=== PATIENT | male | born 1935 | race Caucasian/White ===

== ENCOUNTER → 2019-07-29 | Outpatient (CLI) | payer MEDICARE, BC ==
--- NOTE | 2019-07-29 16:19 | CT ---
EXAMINATION TYPE: CT abdomen pelvis w con DATE OF EXAM: 07/29/2019 COMPARISON: NONE HISTORY: 84-year-old male Hematuria x1 month. TECHNIQUE: Contiguous axial scanning of the abdomen and pelvis following administration of 80 ml Isov ue 300 IV contrast. Dose was decreased given apparent acute kidney injury. Patient still remains at [facility] for worsening kidney function and should be reevaluated. Delayed images through the kidneys and c oronal/sagittal reconstructions performed. CT DLP: 962.90 mGycm Automated exposure control for dose reduction was used. FINDINGS: Heart normal size without pericardial effusion. Ectatic ascending aorta 3.7 cm. Three-vessel coronary artery calcifications are present. Moderate bilateral gynecomastia. Lung bases clear with some stran dy atelectasis. Liver enlarged at 20.9 cm with low attenuation. No focal liver lesion. Portal venous system is patent . No biliary ductal dilatation. Gallbladder, adrenal glands and spleen within normal limits. 2.0 x 1.9 cm cystic lesion of the inferior pancreatic head, refer to axial image 42 and coronal image 39. No nephrolithiasis. Symmetric uptake and excretion of contrast from both kidneys. A couple small cortical hypodensities within the right kidney measure 1.1 and 0.6 cm. These are too s mall for accurate CT characterization and likely represent small cortical cysts. There is a large wedge-shaped cortical defect along the upper to mid pole of the left kidney and also a smaller defect along the lower pole of the left kidney. At the level of the larger upper to mid pole defect, there is a complex, septated versus 2 adjacent c ysts measuring 3.8 cm wide by 2.6 cm AP by 2.5 cm craniocaudal, refer to axial image 36 and coronal i mage 59 and 58. Along the lateral lower pole, there is a 1.2 cm cortical hypodensity, too small for accurate CT tere cterization, probable cyst. These should be reassessed at follow-up. [id number] atherosclerotic calcifications abdominal aorta and iliac arteries. No dilated small bowel, free fluid, or free air. No mesenteric or retroperitoneal lymphadenopathy. Normal appendix. Scattered colonic diverticulosis. Mild stool. Circumferential bladder wall thickening with mild perivesicular fat stranding. Heterogeneous enhancement of the prostate gland which measures approximately 3.8 cm wide. No abnormal fluid collection in the pelvis or pelvic lymphadenopathy seen. Bones: Degenerative changes of the hips. Hypertrophic facet arthropathy with grade 1 retrolisthesis a t L3-L4. Advanced degenerative disc disease L3-L4 and moderate at additional levels. IMPRESSION: 1. HETEROGENEOUS ENHANCEMENT OF THE PROSTATE GLAND. CLINICALLY CORRELATE TO EXCLUDE UNDERLYING PROSTA TITIS OR PROSTATE CANCER. 2. CIRCUMFERENTIAL BLADDER WALL THICKENING AND PERIVESICULAR FAT STRANDING SUGGESTS CONCURRENT CYSTIT IS. 3. LARGE CORTICAL DEFECT ALONG THE UPPER TO MID POLE OF THE LEFT KIDNEY COULD REFLECT SEQUELA OF PRIO R VASCULAR OR INFECTIOUS INSULT. THERE IS A MILDLY COMPLEX, SEPTATED CYST VERSUS 2 ADJACENT CYSTS JOSE SURING 3.8 CM INTERPOSED IN THIS DEFECT. SIX-MONTH FOLLOW-UP RECOMMENDED TO REASSESS. 4. ADDITIONAL BILATERAL RENAL LESIONS, TOO SMALL FOR ACCURATE CT CHARACTERIZATION, LIKELY CORTICAL CY STS MEASURING UP TO 1.2 CM. 5. INCIDENTAL 2.0 CM INFERIOR PANCREATIC HEAD CYSTIC LESION. DIFFERENTIAL CONSIDERATIONS INCLUDE SEQU TL OF PRIOR PANCREATITIS AND CYSTIC PANCREATIC NEOPLASM. THIS SHOULD ALSO BE REASSESSED AT THE FOLLO W-UP. CONSIDER MULTIPHASIC ABDOMINAL MRI AT THE TIME OF FOLLOW-UP TO BETTER CHARACTERIZE THIS PANCREA TIC LESION WELL THE RENAL LESIONS. 6. NOTE THAT A DECREASED DOSE OF IV CONTRAST WAS ADMINISTERED IN THE SETTING OF RECOVERING ACUTE KIDN EY INJURY. RECOMMEND MONITORING THE PATIENT FOR ANY POTENTIAL WORSENING KIDNEY FUNCTION.
== END | disposition home or self-care (01) ==
LOC: RADCTMAIN 13:10
PROVIDERS: ATTEND Urology
DX: N17.9 Acute kidney failure, unspecified (principal); N32.89 Other specified disorders of bladder; N28.89 Other specified disorders of kidney and ureter
CPT/HCPCS: 82565; 84520; 74177; 36415; Q9967

== ENCOUNTER → 2019-08-02 | Outpatient (CLI) | payer MEDICARE, BC ==
[2019-08-02 20:03] LABS: African American GFR (CKD) 48.2 (60.0-200.0); Non-African American GFR(CKD) 41.6 (60.0-200.0)
== END ==
LOC: LABWHC1 14:15
PROVIDERS: ATTEND Urology
DX: N18.3 Chronic kidney disease, stage 3 (moderate) (principal)
CPT/HCPCS: 36415; 82565; 84520

== ENCOUNTER → 2020-07-03 | Outpatient (CLI) | payer MEDICARE, BC ==
--- NOTE | 2020-07-03 12:56 | MR ---
MR pancreas with and without contrast HISTORY: K [address], pancreatic mass Multiplanar multisequence and postcontrast images obtained through the pancreas following [address] IV Correlation to CT scan 07/29/2019 There is motion on the exam. Exam is somewhat limited by patient's ability to cooperate. The uncinate process of the pancreas shows a T1 low signal, T2 bright lesion measuring approximately 19 mm in transverse dimension by 2.2 cm in cephalad to caudal dimension by 1.7 cm as on prior exam. T here is no abnormal enhancement following contrast administration. Multiple T1 low signal, T2 bright foci within the kidneys are present correlating with cystic lesion seen on CT, there is some cortical thinning at the lower pole the left kidney as on CT. There is no e vident retroperitoneal adenopathy or ascites. Lung bases are clear. Aorta shows normal caliber. Adren al glands, spleen, gallbladder are within normal limits. Signal drop in the liver is consistent with attic steatosis as noted on CT, liver is enlarged. Degenerative disc changes are noted in the visualized spine. IMPRESSION: Cystic foci within the kidneys and pancreas are essentially stable within the limitations of the exam. Hepatic steatosis, hepatomegaly
== END | disposition home or self-care (01) ==
LOC: RADMRIMAIN 07:21
PROVIDERS: ATTEND Urology
DX: K76.0 Fatty (change of) liver, not elsewhere classified (principal); R16.0 Hepatomegaly, not elsewhere classified; K86.2 Cyst of pancreas
CPT/HCPCS: 74183; A9585

== ENCOUNTER 2021-04-25 13:30 | Inpatient (IN) | payer MEDICARE, BC ==
[2021-04-25 14:40] LABS: Bacteria,Urine Rare /hpf; RBC,Urine 156 /hpf (0-5); WBC,Urine >182 /hpf (0-5)
[2021-04-25] MEDS ORDERED: SODIUM CHLORIDE 0.9% 1,000 ML IV STA (14:40)
[2021-04-25 14:48] LABS: Color,Urine Colorless
--- NOTE | 2021-04-25 14:49 | ED ---
General Adult HPI - General Chief complaint: Weakness Stated complaint: low blood pressure Time Seen by Provider: 04/25/21 13:45 Source: patient, RN notes reviewed, old records reviewed Mode of arrival: ambulatory Limitations: no limitations - History of Present Illness Initial comments: This is an 86-year-old male presents emergency Department because he has become more more weak. Patient states since the beginning of March is lost 18 pounds because he is lost his appetite. Patient states he has chronic diarrhea change. patient states that he does have some burning with urination any daughter states that he has urinary frequency. Patient tried see primary medical care doctor today but they were not in. Patient states the weakness is general there is no focal deficit noted no focal numbness noted patient denies chest pain difficulty breathing shortest breath per patient any recent fever chills or cough. Patient denies any headache patient denies any recent injuries or falls. Patient denies any abdominal pain. Patient's blood pressure was low when he visited the doctor yesterday and he took him off his blood pressure medications started today and the patient continues to be very weak. - Related Data Allergies Allergy/AdvReac Type Severity Reaction Status Date / Time No Known Allergies Allergy Verified 04/25/21 13:50 Review of Systems ROS Statement: Those systems with pertinent positive or pertinent negative responses have been documented in the HPI. ROS Other: All systems not noted in ROS Statement are negative. Past Medical History Past Medical History: Cancer, Diabetes Mellitus, Hyperlipidemia, Hypertension, Osteoarthritis (OA) Additional Past Medical History / Comment(s): prostate CA, History of Any Multi-Drug Resistant Organisms: None Reported Additional Past Surgical History / Comment(s): lamenectomy Past Psychological History: Depression Smoking Status: Never smoker Past Alcohol Use History: None Reported Past Drug Use History: None Reported General Exam - General Exam Comments Initial Comments: GENERAL: Patient is well-developed and well-nourished. Patient is nontoxic and well- hydrated and is in no acute distress. ENT: Neck is soft and supple. No significant lymphadenopathy is noted. Oropharynx is clear. Moist mucous membranes. Neck has full range of motion without eliciting any pain. EYES: The sclera were anicteric and conjunctiva were pink and moist. Extraocular movements were intact and pupils were equal round and reactive to light. Eyelids were unremarkable. PULMONARY: Unlabored respirations. Good breath sounds bilaterally. CARDIOVASCULAR: There is a regular rate and rhythm without any murmurs gallops or rubs. ABDOMEN: Soft and nontender with normal bowel sounds. SKIN: Skin is clear with no lesions or rashes and otherwise unremarkable. NEUROLOGIC: Patient is alert and oriented x3. Cranial nerves II through XII are grossly intact. Motor and sensory are also intact. Normal speech, volume and content. Symmetrical smile. Cerebellar exam grossly intact. MUSCULOSKELETAL: Normal extremities with adequate strength and full range of motion. No lower extremity swelling or edema. No calf tenderness. LYMPHATICS: No significant lymphadenopathy is noted PSYCHIATRIC: Normal psychiatric evaluation. 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 I started the patient on Rocephin for the urinary tract infection which was diagnosed at 4:00 PM. Patient was orthostatic positive gave the patient a liter and a half of fluid. I spoke with sounds physician they agreed to admit the patient I admitted the patient wrote admitting orders - Lab Data Result diagrams: 04/25/21 14:48 04/25/21 14:48 Lab Results 04/25/21 04/25/21 04/25/21 Range/Units 13:52 14:48 14:48 WBC 10.4 (3.8-10.6) k/uL RBC 3.76 L (4.30-5.90) m/uL Hgb 11.5 L (13.0-17.5) gm/dL Hct 35.0 L (39.0-53.0) % MCV 93.3 (80.0-100.0) fL MCH 30.5 (25.0-35.0) pg MCHC 32.7 (31.0-37.0) g/dL RDW 15.7 H (11.5-15.5) % Plt Count 497 H (150-450) k/uL MPV 7.0 Neutrophils % 74 % Lymphocytes % 16 % Monocytes % 7 % Eosinophils % 1 % Basophils % 1 % Neutrophils # 7.7 (1.3-7.7) k/uL Lymphocytes # 1.7 (1.0-4.8) k/uL Monocytes # 0.7 (0-1.0) k/uL Eosinophils # 0.1 (0-0.7) k/uL Basophils # 0.1 (0-0.2) k/uL Hypochromasia Slight PT 10.2 (9.0-12.0) sec INR 1.0 (<1.2) APTT 23.1 (22.0-30.0) sec Sodium (137-145) mmol/L Potassium (3.5-5.1) mmol/L Chloride (98-107) mmol/L Carbon Dioxide (22-30) mmol/L Anion Gap mmol/L BUN (9-20) mg/dL Creatinine (0.66-1.25) mg/dL Est GFR (CKD-EPI)AfAm (>60 ml/min/1.73 sqM) Est GFR (CKD-EPI)NonAf (>60 ml/min/1.73 sqM) Glucose (74-99) mg/dL Plasma Lactic Acid Dada (0.7-2.0) mmol/L Calcium (8.4-10.2) mg/dL Magnesium (1.6-2.3) mg/dL Total Bilirubin (0.2-1.3) mg/dL AST (17-59) U/L ALT (4-49) U/L Alkaline Phosphatase (38-126) U/L Troponin I (0.000-0.034) ng/mL Total Protein (6.3-8.2) g/dL Albumin (3.5-5.0) g/dL Urine Color Colorless Urine Appearance Turbid (Clear) Urine RBC 156 H (0-5) /hpf Urine WBC >182 H (0-5) /hpf Urine WBC Clumps Many H (None) /hpf Urine Bacteria Rare H (None) /hpf 04/25/21 04/25/21 04/25/21 Range/Units 14:48 14:48 14:48 WBC (3.8-10.6) k/uL RBC (4.30-5.90) m/uL Hgb (13.0-17.5) gm/dL Hct (39.0-53.0) % MCV (80.0-100.0) fL MCH (25.0-35.0) pg MCHC (31.0-37.0) g/dL RDW (11.5-15.5) % Plt Count (150-450) k/uL MPV Neutrophils % % Lymphocytes % % Monocytes % % Eosinophils % % Basophils % % Neutrophils # (1.3-7.7) k/uL Lymphocytes # (1.0-4.8) k/uL Monocytes # (0-1.0) k/uL Eosinophils # (0-0.7) k/uL Basophils # (0-0.2) k/uL Hypochromasia PT (9.0-12.0) sec INR (<1.2) APTT (22.0-30.0) sec Sodium 133 L (137-145) mmol/L Potassium 5.0 (3.5-5.1) mmol/L Chloride 101 (98-107) mmol/L Carbon Dioxide 19 L (22-30) mmol/L Anion Gap 13 mmol/L BUN 45 H (9-20) mg/dL Creatinine 1.57 H (0.66-1.25) mg/dL Est GFR (CKD-EPI)AfAm 45 (>60 ml/min/1.73 sqM) Est GFR (CKD-EPI)NonAf 39 (>60 ml/min/1.73 sqM) Glucose 164 H (74-99) mg/dL Plasma Lactic Acid Dada 2.6 H* (0.7-2.0) mmol/L Calcium 9.6 (8.4-10.2) mg/dL Magnesium 1.6 (1.6-2.3) mg/dL Total Bilirubin 0.2 (0.2-1.3) mg/dL AST 16 L (17-59) U/L ALT 9 (4-49) U/L Alkaline Phosphatase 74 (38-126) U/L Troponin I <0.012 (0.000-0.034) ng/mL Total Protein 6.8 (6.3-8.2) g/dL Albumin 3.8 (3.5-5.0) g/dL Urine Color Urine Appearance (Clear) Urine RBC (0-5) /hpf Urine WBC (0-5) /hpf Urine WBC Clumps (None) /hpf Urine Bacteria (None) /hpf Disposition Clinical Impression: Orthostatic hypotension, Generalized weakness, Urinary tract infection Disposition: ADMITTED IP TO THIS HOSP Referrals: Ciro Deshpande MD [Primary Care Provider] - 1-2 days Time of Disposition: 16:03
[2021-04-25 14:50] LABS: Appearance,Urine Turbid (Clear)
[2021-04-25] MEDS ORDERED: SODIUM CHLORIDE 0.9% 500 ML 500 ML IV STA (15:05)
[2021-04-25 15:25] LABS: Basophils # (A) 0.1 k/uL (0-0.2); Basophils % (A) 1 %; Eosinophils # (A) 0.1 k/uL (0-0.7); Eosinophils % (A) 1 %; HGB 11.5 gm/dL (13.0-17.5); Hypochromasia Slight; Lymphocytes # (A) 1.7 k/uL (1.0-4.8); Lymphocytes % (A) 16 %; MCH 30.5 pg (25.0-35.0); MCHC 32.7 g/dL (31.0-37.0); MCV 93.3 fL (80.0-100.0); Monocytes # (A) 0.7 k/uL (0-1.0); Monocytes % (A) 7 %; Neutrophils # (A) 7.7 k/uL (1.3-7.7); Neutrophils % (A) 74 %; Platelet Count 497 k/uL (150-450); RBC 3.76 m/uL (4.30-5.90); RDW 15.7 % (11.5-15.5); WBC 10.4 k/uL (3.8-10.6)
--- NOTE | 2021-04-25 15:30 | XR ---
EXAMINATION TYPE: XR chest 2V DATE OF EXAM: 04/25/2021 COMPARISON: Outside chest x-ray April 29, 2017 HISTORY: Hypotension and weakness. TECHNIQUE: Frontal and lateral views of the chest are obtained. FINDINGS: There is small right pleural effusion redemonstrated. No new focal infiltrate. Left lung is clear. The cardiac silhouette size is within normal limits. Multilevel spurring in the spine. IMPRESSION: Stable small right pleural effusion. No new focal infiltrate.
[2021-04-25 15:34] LABS: Albumin 3.8 g/dL (3.5-5.0); Calcium 9.6 mg/dL (8.4-10.2); Magnesium 1.6 mg/dL (1.6-2.3); Total Bilirubin 0.2 mg/dL (0.2-1.3); Total Protein 6.8 g/dL (6.3-8.2)
[2021-04-25 15:37] LABS: Partial Thromboplastin Time 23.1 sec (22.0-30.0); Prothrombin Time 10.2 sec (9.0-12.0)
[2021-04-25] MEDS ORDERED: SODIUM CHLORIDE 0.9% 1,000 ML IV ONE (16:03)
--- NOTE | 2021-04-25 17:09 | P.HPIM ---
<Erik Del Angel - Last Filed: 04/25/21 18:16> History of Present Illness H&P Date: 04/25/21 History of Presenting Illness: Patient is a very pleasant 86-year-old male with a past medical history of prostate cancer, diabetes mellitus, hypertension, hyperlipidemia, and osteoarthritis. He presented to the emergency department with a chief complaint of progressive weakness with reports of loss of appetite, 18 pound weight loss, urinary frequency and dysuria. Patient reports these symptoms began one month ago and have progressively worsened. Patient was seen and fully evaluated in the emergency department. CBC was completed showing no significant abnormalities with the exception of mild normocytic normochromic anemia with hemoglobin of 11.5 and thrombocytosis with platelet count of 497. BMP revealed mild hyponatremia with sodium of 133 and acute kidney injury with BUN of 45, creatinine 1.57, and GFR of 39 1.57 with baseline creatinine of 1.3. Hyperglycemia with glucose of 164, and lactic acidosis with lactate of 2.6. Troponin negative at less than 0.012. Urinalysis positive for infection with greater than 182 WBCs. Chest x-ray negative for acute cardiopulmonary process revealing a stable small right pleural effusion EKG revealing normal sinus rhythm at 76 bpm with a left bundle branch block. No previous EKGs available for comparison. Patient diagnosed with UTI and started on IV antibiotic, Rocephin. Patient admitted under our services at this time. Patient seen and physical examination completed at the bedside. He reports feeling very weak and lethargic. He also reports having chronic diarrhea, but states this has been chronic in nature since receiving radiation from his prostate cancer greater than 15 years ago. Patient denies having any increases in or changes in stool consistency or frequency. He denies having any hematuria, hematochezia, or melena. Patient and his family at bedside reports patient has pretty much been lying around and sleeping on the couch for the past 3 weeks. They report him having an 18 pound weight loss that they contribute to his significantly decreased appetite. Patient also reports having chronic back pains lower back done at bedside reports this is why he feels his father is not getting out of bed. Patient denies having any recent fevers, chills, diaphoresis, headache, lightheadedness, dizziness, chest pain, palpitations, shortness of breath, dyspnea with exertion, abdominal pain, nausea, vomiting, or experiencing any pain/numbness/tingling/weakness in his extremities. She reports history of prostate cancer greater than 14 years ago in which she was treated with radiation and went into remission. Patient also reports having a MRI on his pancreas and renal cysts 1 year ago and was informed there were no changes from previous year. Review of systems: Pertinent positives and negatives as discussed in HPI, a complete review of systems was performed and all other systems are negative. Physical exam: Vital signs reviewed and stable. General: Nontoxic, no distress and appears stated age. Derm: Skin warm and dry, pale. Head: Atraumatic, normocephalic and symmetric. Eyes: no lid lag, and anicteric sclera Mouth: no lip lesions, mucus membranes moist Cardiovascular: regular rate and rhythm with normal S1S2, no murmur, positive posterior tibial pulses bilaterally, and cap refill < 2 seconds. Lungs: Respirations even, regular, and unlabored on room air. Lungs CTA bilaterally, no rhonchi, no rales, no wheezing, and no accessory muscle usage. Abdominal: soft, nontender to palpation, no guarding, no appreciable organomegaly Ext: ROM intact. No gross muscle atrophy, no edema, no contractures Neuro: Speech clear, face symmetrical and CN II-XII grossly intact with no noted focal neuro deficits Psych: Alert and oriented to person, place, time, and situation. Appropriate and pleasant affect. Assessment and Plan of Care: Acute cystitis with urinary frequency and dysuria -Urinalysis positive for infection with greater than 182 WBCs. -Urine culture -IV antibiotic Rocephin pending urine culture results -Gentle hydration with IV fluids -Bladder management with PRN bladder scans to monitor for urinary retention Generalized weakness, lethargy, decreased appetite and weight loss -Treatment of underlying infectious process, UTI with Rocephin -Gentle hydration with IV fluids -Consult to nutrition services -PT/OT -CT thoracic and lumbar spine to rule out possible metastatic process is reported by patient's back pain and history of prostate cancer -Symptomatic care and assistance as needed -Fall precautions Back pain with history of lumbar fusion -Symptomatic care and pain management -PT/OT consult -CT thoracic and lumbar spine -Fall precautions [id number]-jnyswtegz diabetes mellitus -Hold Glucophage in place patient on glycemic protocol with NovoLog sliding scal e. Hyperlipidemia -Continue daily medication regimen with atorvastatin The patient is admitted with an anticipated greater than 2 midnight stay for evaluation of acute cystitis and generalized lethargy/weakness. CODE STATUS: Full code per patient, daughter and son at bedside DVT prophylaxis: Heparin Discussed with: Patient, patient's daughter, and patient's son Anticipated discharge date: Clinical course to determine Anticipated discharge place: Home A total of 45 minutes was spent on the care of this complex patient more than 50% of the time was spent in counseling and care coordination. Past Medical History Past Medical History: Cancer, Diabetes Mellitus, Hyperlipidemia, Hypertension, O steoarthritis (OA) Additional Past Medical History / Comment(s): prostate CA, History of Any Multi-Drug Resistant Organisms: None Reported Additional Past Surgical History / Comment(s): lamenectomy Past Psychological History: Depression Smoking Status: Never smoker Past Alcohol Use History: None Reported Past Drug Use History: None Reported Medications and Allergies Home Medications Medication Instructions Recorded Confirmed Type Acetaminophen Tab [Tylenol] 650 mg PO Q4H PRN 04/25/21 04/25/21 History Albuterol Inhaler [Ventolin Hfa 2 puff INHALATION RT-QID PRN 04/25/21 04/25/21 History Inhaler] Atorvastatin [Lipitor] 20 mg PO DAILY 04/25/21 04/25/21 History Cholecalciferol [Vitamin D3 (25 50 mcg PO DAILY 04/25/21 04/25/21 History Mcg = 1000 Iu)] FLUoxetine HCL [PROzac] 20 mg PO DAILY 04/25/21 04/25/21 History Loratadine 10 mg PO DAILY 04/25/21 04/25/21 History metFORMIN HCL [Glucophage] 500 mg PO BID 04/25/21 04/25/21 History Allergies Allergy/AdvReac Type Severity Reaction Status Date / Time No Known Allergies Allergy Verified 04/25/21 17:56 Physical Exam Vitals: Vital Signs Temp Pulse Pulse Pulse Pulse Resp BP 04/25/21 16:00 72 20 120/66 04/25/21 15:00 76 20 101/56 04/25/21 14:50 93 101 H 79 04/25/21 13:45 98.4 F 93 18 100/65 BP BP BP Pulse Ox 04/25/21 16:00 99 04/25/21 15:00 97 04/25/21 14:50 81/56 70/39 114/67 04/25/21 13:45 99 Intake and Output 08/18/21 08/18/21 08/18/21 06:59 14:59 22:59 Other: Weight 62.596 kg Results CBC & Chem 7: 04/25/21 14:48 04/25/21 14:48 Labs: Abnormal Lab Results - Last 24 Hours (Table) 04/25/21 04/25/21 04/25/21 Range/Units 13:52 14:48 14:48 RBC 3.76 L (4.30-5.90) m/uL Hgb 11.5 L (13.0-17.5) gm/dL Hct 35.0 L (39.0-53.0) % RDW 15.7 H (11.5-15.5) % Plt Count 497 H (150-450) k/uL Sodium 133 L (137-145) mmol/L Carbon Dioxide 19 L (22-30) mmol/L BUN 45 H (9-20) mg/dL Creatinine 1.57 H (0.66-1.25) mg/dL Glucose 164 H (74-99) mg/dL Plasma Lactic Acid Dada (0.7-2.0) mmol/L AST 16 L (17-59) U/L Urine RBC 156 H (0-5) /hpf Urine WBC >182 H (0-5) /hpf Urine WBC Clumps Many H (None) /hpf Urine Bacteria Rare H (None) /hpf 04/25/21 Range/Units 14:48 RBC (4.30-5.90) m/uL Hgb (13.0-17.5) gm/dL Hct (39.0-53.0) % RDW (11.5-15.5) % Plt Count (150-450) k/uL Sodium (137-145) mmol/L Carbon Dioxide (22-30) mmol/L BUN (9-20) mg/dL Creatinine (0.66-1.25) mg/dL Glucose (74-99) mg/dL Plasma Lactic Acid Dada 2.6 H* (0.7-2.0) mmol/L AST (17-59) U/L Urine RBC (0-5) /hpf Urine WBC (0-5) /hpf Urine WBC Clumps (None) /hpf Urine Bacteria (None) /hpf <Elvira Mcdaniels A - Last Filed: 04/25/21 20:21> History of Present Illness Patient seen and examined independently. Patient was also seen by Erik Del Angel NP and case was discussed. I am in agreement with subjective, physical exam, assessment and plan as written above and amended below. Patient is unsure of his back pain has been increasing but it is lower in over his sciatic and near his prostate area. He states he is having some difficulty with urination and just feeling weak all over. Pain is somewhat worse with movement. He has not had any recent imaging. He does not want to undergo MRIs he had issues with claustrophobia and then confusion from the Ativan when he completed his pancreatic MRI. General: [non toxic], [no distress], [appears at stated age] Derm: [warm], [dry] Head: [atraumatic], [normocephalic], [symmetric] Eyes: [EOMI], [no lid lag], [anicteric sclera] hard of hearing Mouth: [no lip lesion], [mucus membranes moist] Cardiovascular: [S1S2 reg], [no murmur], [positive posterior tibial pulse bilateral], Lungs: [Coarse breath sounds bilateral bilateral], [no rhonchi, no rales] , [no accessory muscle use] Spine: No tenderness to palpation over thoracic and lumbar spine, no erythema, no bulging, loss of lumbar lordosis. Psych: [Alert], [oriented], [appropriate affect] Physical Exam Osteopathic Statement: *. No significant issues noted on an osteopathic structural exam other than those noted in the History and Physical/Consult. Vitals: Vital Signs Temp Pulse Pulse Pulse Pulse Resp BP 04/25/21 20:04 98.0 F 73 20 101/52 04/25/21 16:00 72 20 120/66 04/25/21 15:00 76 20 101/56 04/25/21 14:50 93 101 H 79 04/25/21 13:45 98.4 F 93 18 100/65 BP BP BP Pulse Ox 04/25/21 20:04 100 04/25/21 16:00 99 04/25/21 15:00 97 04/25/21 14:50 81/56 70/39 114/67 04/25/21 13:45 99 Intake and Output 0804/25/21 04/25/21 06:59 14:59 22:59 Other: Weight 62.596 kg Results CBC & Chem 7: 04/25/21 14:48 04/25/21 14:48 Labs: Abnormal Lab Results - Last 24 Hours (Table) 04/25/21 04/25/21 04/25/21 Range/Units 13:52 14:48 14:48 RBC 3.76 L (4.30-5.90) m/uL Hgb 11.5 L (13.0-17.5) gm/dL Hct 35.0 L (39.0-53.0) % RDW 15.7 H (11.5-15.5) % Plt Count 497 H (150-450) k/uL Sodium 133 L (137-145) mmol/L Carbon Dioxide 19 L (22-30) mmol/L BUN 45 H (9-20) mg/dL Creatinine 1.57 H (0.66-1.25) mg/dL Glucose 164 H (74-99) mg/dL Plasma Lactic Acid Dada (0.7-2.0) mmol/L AST 16 L (17-59) U/L Urine RBC 156 H (0-5) /hpf Urine WBC >182 H (0-5) /hpf Urine WBC Clumps Many H (None) /hpf Urine Bacteria Rare H (None) /hpf 04/25/21 Range/Units 14:48 RBC (4.30-5.90) m/uL Hgb (13.0-17.5) gm/dL Hct (39.0-53.0) % RDW (11.5-15.5) % Plt Count (150-450) k/uL Sodium (137-145) mmol/L Carbon Dioxide (22-30) mmol/L BUN (9-20) mg/dL Creatinine (0.66-1.25) mg/dL Glucose (74-99) mg/dL Plasma Lactic Acid Dada 2.6 H* (0.7-2.0) mmol/L AST (17-59) U/L Urine RBC (0-5) /hpf Urine WBC (0-5) /hpf Urine WBC Clumps (None) /hpf Urine Bacteria (None) /hpf Microbiology - Last 24 Hours (Table) 04/25/21 13:52 Urine Culture - Preliminary Urine,Voided
[2021-04-25] MEDS ORDERED: ALBUTEROL NEBULIZED 2.5 MG/3 ML INHALATION PRN (18:09)
[2021-04-25] MEDS ORDERED: MELATONIN 3 MG TABLET PO PRN (18:13)
[2021-04-25] MEDS ORDERED: ACETAMINOPHEN TAB 325 MG TAB PO PRN (18:13)
[2021-04-25] MEDS ORDERED: NALOXONE 0.4 MG/ML 1 ML VIAL IV PRN (18:13)
--- NOTE | 2021-04-25 20:22 | CT ---
EXAMINATION TYPE: CT thor lumbar spine wo con DATE OF EXAM: 04/25/2021 COMPARISON: CT lumbar spine 07/29/2019 HISTORY: chronic back pain CT DLP: 932.2 mGycm Automated exposure control for dose reduction was used. Images obtained from the level of T1-S1 vertebra without contrast. Thoracic and lumbar vertebra have fairly normal alignment. There is degenerative disc space moderate narrowing at L3-4. There is vacuum disc at L4-5. There is multilevel hypertrophic degenerative spurri ng anteriorly throughout the lower thoracic spine and the entire lumbar spine. There is no compressio n fracture. There is no evidence of thoracic or lumbar paraspinal mass. The posterior elements are in tact. I see no focal bone destruction. The sacroiliac joints appear intact. There is narrowing of the spinal canal from L3 to S1 with moderate facet arthropathy and ligamentum f lavum thickening. There is some mild narrowing of the spinal canal also in the thoracic spine region at T8-9 due to ligamentum flavum thickening and calcification. 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 Lumbar spine appears stable compared to old exam. There is a few millimeter retrolisthesis at L3-4. There is moderately severe spinal stenosis from L3 to S1. This is related to facet arthropathy and li gamentum flavum thickening.
[2021-04-25 21:09] LABS: Glucose,Whole Blood 147 mg/dL (75-99)
[2021-04-25] MEDS: HEPARIN SODIUM,PORCINE/PF 5,000 UNIT/0.5 ML SYRINGE SQ SCH (21:50)
[2021-04-25] MEDS: INSULIN ASPART (NovoLOG) 100 UNIT/ML VIAL SQ SCH (21:50)
[2021-04-25] MEDS: HYDROcodone/APAP 5-325MG 1 EACH TAB PO PRN (21:51)
[2021-04-26] MEDS: SODIUM CHLORIDE 0.9% 1,000 ML IV SCH ×3 (01:38→14:23)
[2021-04-26] MEDS: HYDROcodone/APAP 5-325MG 1 EACH TAB PO PRN ×3 (06:20→18:22)
[2021-04-26 06:41] LABS: Glucose,Whole Blood 128 mg/dL (75-99)
[2021-04-26] MEDS: INSULIN ASPART (NovoLOG) 100 UNIT/ML VIAL SQ SCH ×4 (07:30→20:40)
[2021-04-26] MEDS: FLUoxetine HCL 20 MG CAP PO SCH (08:29)
[2021-04-26] MEDS: CHOLECALCIFEROL 25 MCG (1000 IU) TABLET PO SCH (08:29)
[2021-04-26] MEDS: ATORVASTATIN 20 MG TAB PO SCH (08:30)
[2021-04-26] MEDS: HEPARIN SODIUM,PORCINE/PF 5,000 UNIT/0.5 ML SYRINGE SQ SCH ×2 (08:30→20:40)
[2021-04-26 09:04] LABS: HCT 29.4 % (39.6-50.0); HGB 9.1 g/dL (13.0-17.0); MCH 28.5 pg (27.0-32.0); MCV 92.2 fL (80.0-97.0); Mean Platelet Volume 8.8 fL (9.5-12.2); Platelet Count 400 X 10*3/uL (140-440); RBC 3.19 X 10*6/uL (4.40-5.60); RDW 14.6 % (11.5-14.5); WBC 8.19 X 10*3/uL (4.50-10.00)
[2021-04-26 09:05] LABS: ALT <8 U/L (10-49); AST 11 U/L (14-35); African American GFR (CKD) 51.6 (60.0-200.0); Albumin/Globulin Ratio 1.55 (1.60-3.17); Alkaline Phosphatase 55 U/L (41-126); BUN/Creat Ratio 27.14 Ratio (12.00-20.00); Calcium 8.6 mg/dL (8.7-10.3); Carbon Dioxide 20.3 mmol/L (21.6-31.8); Chloride 109 mmol/L (96-109); Globulin 2.2 g/dL (1.6-3.3); Glucose 116 mg/dL (70-110); Magnesium 1.4 mg/dL (1.5-2.4); Non-African American GFR(CKD) 44.5 (60.0-200.0); Potassium 4.4 mmol/L (3.5-5.5); Sodium 138 mmol/L (135-145); Total Bilirubin 0.2 mg/dL (0.3-1.2); Total Protein 5.6 g/dL (6.2-8.2)
--- NOTE | 2021-04-26 09:46 | US ---
EXAMINATION TYPE: US bladder DATE OF EXAM: 04/26/2021 COMPARISON: CT 2018 CLINICAL HISTORY: Report burning sharp pain in bladder w/ retention. EXAM MEASUREMENTS: Post Void Residual Volume: 256.3 mL 4.4cm irregular posterior hypoechoic area seen, questionable prostate vs. Within bladder vs. Other Color Doppler performed to assess ureteral jets. Bilateral Jets seen: no Normal Post Void Residual (less than 50ml): no IMPRESSION: There is a 4.4 cm soft tissue echogenicity along the posterior margin the bladder diffic ult to determine if this is a impression from the enlarged prostate or possibly a bladder mass. Recom mend correlation with CT scan of the pelvis.
[2021-04-26] MEDS: TAMSULOSIN 0.4 MG CAP.ER.24H PO SCH (10:55)
[2021-04-26] MEDS: MAGNESIUM SULFATE-D5W PMX 1 GM in DEXTROSE/WATER 1 100ML.BAG IVPB SCH ×3 (11:19→14:22)
--- NOTE | 2021-04-26 11:25 | P.PN ---
<Erik Del Angel - Last Filed: 04/26/21 11:10> Subjective Progress Note Date: 04/26/21 Hospital course: Patient is a very pleasant 86-year-old male with a past medical history of pro state cancer, diabetes mellitus, hypertension, hyperlipidemia, and osteoarthritis. He presented to the emergency department with a chief complaint of progressive weakness with reports of loss of appetite, 18 pound weight loss, urinary frequency and dysuria. Patient reports these symptoms began one month ago and have progressively worsened. Patient was seen and fully evaluated in the emergency department. CBC was completed showing no significant abnormalities with the exception of mild normocytic normochromic anemia with hemoglobin of 11.5 and thrombocytosis with platelet count of 497. BMP revealed mild hyponatremia with sodium of 133 and acute kidney injury with BUN of 45, creatinine 1.57, and GFR of 39 1.57 with baseline creatinine of 1.3. Hyperglycemia with glucose of 164, and lactic acidosis with lactate of 2.6. Troponin negative at less than 0.012. Urinalysis positive for infection with greater than 182 WBCs. Chest x-ray negative for acute cardiopulmonary process revealing a stable small right pleural effusion EKG revealing normal sinus rhythm at 76 bpm with a left bundle branch block. No previous EKGs available for comparison. Patient diagnosed with UTI and started on IV antibiotic, Rocephin. Patient admitted under our services at this time. Patient seen and physical examination completed at the bedside. He reports feeling very weak and lethargic. He also reports having chronic diarrhea, but states this has been chronic in nature since receiving radiation from his prostate cancer greater than 15 years ago. Patient denies having any increases in or changes in stool consistency or frequency. He denies having any hematuria, hematochezia, or melena. Patient and his family at bedside reports patient has pretty much been lying around and sleeping on the couch for the past 3 weeks. They report him having an 18 pound weight loss that they contribute to his significantly decreased appetite. Patient also reports having chronic back pains lower back done at bedside reports this is why he feels his father is not getting out of bed. Patient denies having any recent fevers, chills, diaphoresis, headache, lightheadedness, dizziness, chest pain, palpitations, shortness of breath, dyspnea with exertion, abdominal pain, nausea, vomiting, or experiencing any pain/numbness/tingling/weakness in his extremities. She reports history of prostate cancer greater than 14 years ago in which she was treated with radiation and went into remission. Patient also reports having a MRI on his pancreas and renal cysts 1 year ago and was informed there were no changes from previous year. 04/26/21: Patient was seen and fully evaluated at the bedside this morning. He reports having pain described as a sharp burning sensation to suprapubic/bladder region. Order placed for bladder scan revealing post void residual greater than 300 mL. Patient started on Flomax 0.4 mg daily and bladder ultrasound completed. Bladder ultrasound revealed a 4.4 cm equally of hypodensity along the bladder suspicious for bladder mass versus prostate enlargement. Patient again having urinary retention and [place] catheter was placed at this time. Order was placed for consult to urology. Patient remains on Rocephin for treatment of Acute cystitis. Patient denies having any other complaints at this time including chills, diaphoresis, headache, lightheadedness, dizziness, chest pain, palpitations, shortness of breath, or dyspnea with exertion. Patient states that he still feels very tired and weak and continues to have no ramon etite. Physical exam: Vital signs reviewed and stable. General: Nontoxic, no distress and appears stated age. Derm: Skin warm and dry, pale. Head: Atraumatic, normocephalic and symmetric. Eyes: no lid lag, and anicteric sclera Mouth: no lip lesions, mucus membranes moist Cardiovascular: regular rate and rhythm with normal S1S2, no murmur, positive p osterior tibial pulses bilaterally, and cap refill < 2 seconds. Lungs: Respirations even, regular, and unlabored on room air. Lungs CTA bilaterally, no rhonchi, no rales, no wheezing, and no accessory muscle usage. Abdominal: soft, nontender to palpation, no guarding, no appreciable organomegaly Ext: ROM intact. No gross muscle atrophy, no edema, no contractures Neuro: Speech clear, face symmetrical and CN II-XII grossly intact with no noted focal neuro deficits Psych: Alert and oriented to person, place, time, and situation. Appropriate and pleasant affect. Assessment and Plan of Care: Acute cystitis with urinary frequency, dysuria, and retention -Urinalysis positive for infection with greater than 182 WBCs. -Urine culture pending -IV antibiotic Rocephin pending urine culture results -Gentle hydration with IV fluids -Bladder scan identifying persistent urinary retention, [place] catheter placed. -Patient started on Flomax 0.4 mg daily -Consult to urology Suprapubic pain -Bladder ultrasound completed revealing a 4.4 cm equally of hypodensity along the bladder suspicious for bladder mass versus prostate enlargement. -[place] catheter placed secondary to persistent urinary retention. -Urology consulted, appreciate further recommendations. Generalized weakness, lethargy, decreased appetite and weight loss -Treatment of underlying infectious process, UTI with Rocephin -Gentle hydration with IV fluids -Consult to nutrition services -PT/OT -CT thoracic and lumbar spine showing moderate to severe spinal stenosis from L3 through S1, no suspicious lesions reported. -Bladder ultrasound completed revealing a 4.4 cm equally of hypodensity along the bladder suspicious for bladder mass versus prostate enlargement. Urology consulted secondary to urinary retention and history of prostate cancer. -Symptomatic care and assistance as needed -Fall precautions Hypomagnesemia Magnesium 1.4, replaced. We will continue to monitor with repeat a.m. labs and replace abnormal electrolyte values as needed. Back pain with history of lumbar fusion -Symptomatic care and pain management -PT/OT consult -CT thoracic and lumbar spine revealing moderate to severe spinal stenosis from L3 through S1 -Fall precautions Ivh-dbmfdan-enxalkmar diabetes mellitus -Hold Glucophage in place patient on glycemic protocol with NovoLog sliding scale. Hyperlipidemia -Continue daily medication regimen with atorvastatin CODE STATUS: Full code DVT prophylaxis: Heparin Discussed with: Patient and RN Anticipated discharge date: Clinical course to determine Anticipated discharge place: Home A total of 45 minutes was spent on the care of this complex patient more than 50% of the time was spent in counseling and care coordination. Objective - Vital Signs Vital signs: Vital Signs Temp 98.1 F 04/26/21 07:29 Pulse 70 04/26/21 07:29 Resp 16 04/26/21 07:29 BP 97/54 04/26/21 07:29 Pulse Ox 97 04/26/21 07:29 Intake & Output 04/25/21 04/26/21 04/26/21 18:59 06:59 18:59 Weight 62.596 kg Other: Voiding Method Toilet Toilet Diaper # Voids 7 # Bowel Movements 0 - Labs CBC & Chem 7: 04/26/21 05:57 04/26/21 05:57 Labs: Abnormal Lab Results - Last 24 Hours (Table) 04/25/21 04/25/21 04/25/21 Range/Units 13:52 14:48 14:48 RBC 3.76 L (4.30-5.90) m/uL Hgb 11.5 L (13.0-17.5) gm/dL Hct 35.0 L (39.0-53.0) % RDW 15.7 H (11.5-15.5) % Plt Count 497 H (150-450) k/uL Sodium 133 L (137-145) mmol/L Carbon Dioxide 19 L (22-30) mmol/L BUN 45 H (9-20) mg/dL Creatinine 1.57 H (0.66-1.25) mg/dL Glucose 164 H (74-99) mg/dL POC Glucose (mg/dL) (75-99) mg/dL Plasma Lactic Acid Dada (0.7-2.0) mmol/L AST 16 L (17-59) U/L Urine RBC 156 H (0-5) /hpf Urine WBC >182 H (0-5) /hpf Urine WBC Clumps Many H (None) /hpf Urine Bacteria Rare H (None) /hpf 04/25/21 04/25/21 04/26/21 Range/Units 14:48 21:06 06:40 RBC (4.30-5.90) m/uL Hgb (13.0-17.5) gm/dL Hct (39.0-53.0) % RDW (11.5-15.5) % Plt Count (150-450) k/uL Sodium (137-145) mmol/L Carbon Dioxide (22-30) mmol/L BUN (9-20) mg/dL Creatinine (0.66-1.25) mg/dL Glucose (74-99) mg/dL POC Glucose (mg/dL) 147 H 128 H (75-99) mg/dL Plasma Lactic Acid Dada 2.6 H* (0.7-2.0) mmol/L AST (17-59) U/L Urine RBC (0-5) /hpf Urine WBC (0-5) /hpf Urine WBC Clumps (None) /hpf Urine Bacteria (None) /hpf Microbiology - Last 24 Hours (Table) 04/25/21 13:52 Urine Culture - Preliminary Urine,Voided <Enedelia,Erica A - Last Filed: 04/26/21 18:32> Subjective Erik Del Angel NP rendered care for this patient independently, reviewed the findings and plan as documented in the note above. I did not physically speak with or examine the patient on this date. Objective - Vital Signs Vital signs: Vital Signs Temp 98.1 F 04/26/21 14:28 Pulse 82 04/26/21 14:28 Resp 17 04/26/21 14:28 BP 108/68 04/26/21 14:28 Pulse Ox 97 04/26/21 14:28 Intake & Output 04/25/21 04/26/21 04/26/21 18:59 06:59 18:59 Output Total 850 Balance -850 Weight 62.596 kg 62.596 kg Output: Urine 850 Other: Voiding Method Toilet Toilet Diaper # Voids 7 # Bowel Movements 0 - Labs CBC & Chem 7: 04/26/21 05:57 04/26/21 05:57 Labs: Abnormal Lab Results - Last 24 Hours (Table) 04/25/21 04/26/21 04/26/21 Range/Units 21:06 05:57 05:57 RBC 3.19 L (4.40-5.60) X 10*6/uL Hgb 9.1 L (13.0-17.0) g/dL Hct 29.4 L (39.6-50.0) % MCHC 31.0 L (32.0-37.0) g/dL RDW 14.6 H (11.5-14.5) % MPV 8.8 L (9.5-12.2) fL Carbon Dioxide 20.3 L (21.6-31.8) mmol/L BUN 38.0 H (9.0-27.0) mg/dL Est GFR (CKD-EPI)AfAm 51.6 L (60.0-200.0) Est GFR (CKD-EPI)NonAf 44.5 L (60.0-200.0) BUN/Creatinine Ratio 27.14 H (12.00-20.00) Ratio Glucose 116 H (70-110) mg/dL POC Glucose (mg/dL) 147 H (75-99) mg/dL Calcium 8.6 L (8.7-10.3) mg/dL Magnesium 1.4 L (1.5-2.4) mg/dL Total Bilirubin 0.2 L (0.3-1.2) mg/dL AST 11 L (14-35) U/L ALT <8 L (10-49) U/L Total Protein 5.6 L (6.2-8.2) g/dL Albumin 3.40 L (3.80-4.90) g/dL Albumin/Globulin Ratio 1.55 L (1.60-3.17) g/dL 04/26/21 04/26/21 04/26/21 Range/Units 06:40 11:56 16:50 RBC (4.40-5.60) X 10*6/uL Hgb (13.0-17.0) g/dL Hct (39.6-50.0) % MCHC (32.0-37.0) g/dL RDW (11.5-14.5) % MPV (9.5-12.2) fL Carbon Dioxide (21.6-31.8) mmol/L BUN (9.0-27.0) mg/dL Est GFR (CKD-EPI)AfAm (60.0-200.0) Est GFR (CKD-EPI)NonAf (60.0-200.0) BUN/Creatinine Ratio (12.00-20.00) Ratio Glucose (70-110) mg/dL POC Glucose (mg/dL) 128 H 146 H 128 H (75-99) mg/dL Calcium (8.7-10.3) mg/dL Magnesium (1.5-2.4) mg/dL Total Bilirubin (0.3-1.2) mg/dL AST (14-35) U/L ALT (10-49) U/L Total Protein (6.2-8.2) g/dL Albumin (3.80-4.90) g/dL Albumin/Globulin Ratio (1.60-3.17) g/dL Microbiology - Last 24 Hours (Table) 04/25/21 13:52 Urine Culture - Preliminary Urine,Voided
[2021-04-26 11:53] LABS: Basophils # (A) 0.06 X 10*3/uL (0.00-0.10); Basophils % (A) 0.7 %; Eosinophils # (A) 0.04 X 10*3/uL (0.04-0.35); Eosinophils % (A) 0.5 %; Lymphocytes # (A) 1.19 X 10*3/uL (0.90-5.00); Lymphocytes % (A) 14.5 %; Monocytes # (A) 0.89 X 10*3/uL (0.20-1.00); Monocytes % (A) 10.9 %; Neutrophils # (A) 5.99 X 10*3/uL (1.80-7.70); Neutrophils % (A) 73.2 %
[2021-04-26 11:56] LABS: Glucose,Whole Blood 146 mg/dL (75-99)
[2021-04-26 15:26] VITALS: BMI 22.9
--- NOTE | 2021-04-26 15:30 | P.GSCN ---
History of Present Illness Consult date: 04/26/21 Reason for Consult: Urinary retention, bladder mass History of present illness: This is an 86-year-old male that presents to the hospital with weakness. Urology is consulted for urinary retention and Bladder mass. he has history of prostate cancer treated with external beam radiation and ADT in the past. No recent PSA is. He has history of LUTS, he was previously on Flomax, but no longer taking it. He follow us up with Dr. Flores. On Presentation he underwent a bladder ultrasound showed a possible 4 cm mass versus extension of the prostate. On presentation his UA is concerning for UTI, and his PVR is elevated at 400 mL [place] catheter was subsequently placed. Denies any gross hematuria or dysuria, but hematuria was noticed catheter insertion Review of Systems - Constitutional Reports lethargy, Reports weakness, Denies chills, Denies fever - EENT Ears, nose, mouth and throat: Denies dysphagia - Cardiovascular Denies chest pain, Denies shortness of breath - Respiratory Denies cough, Denies 7 - Gastrointestinal Reports as per HPI - Genitourinary Reports urinary retention, Denies dysuria - Integumentary Denies rash, Denies unusual bruising - Neurological Denies headaches, Denies syncope Past Medical History Past Medical History: Cancer, Diabetes Mellitus, Hyperlipidemia, Hypertension, Osteoarthritis (OA) Additional Past Medical History / Comment(s): prostate CA, History of Any Multi-Drug Resistant Organisms: None Reported Additional Past Surgical History / Comment(s): lamenectomy Past Psychological History: Depression Smoking Status: Never smoker Past Alcohol Use History: None Reported Past Drug Use History: None Reported Medications and Allergies Home Medications Medication Instructions Recorded Confirmed Type Acetaminophen Tab [Tylenol] 650 mg PO Q4H PRN 04/25/21 04/25/21 History Albuterol Inhaler [Ventolin Hfa 2 puff INHALATION RT-QID PRN 04/25/21 04/25/21 History Inhaler] Atorvastatin [Lipitor] 20 mg PO DAILY 04/25/21 04/25/21 History Cholecalciferol [Vitamin D3 (25 50 mcg PO DAILY 04/25/21 04/25/21 History Mcg = 1000 Iu)] FLUoxetine HCL [PROzac] 20 mg PO DAILY 04/25/21 04/25/21 History Loratadine 10 mg PO DAILY 04/25/21 04/25/21 History metFORMIN HCL [Glucophage] 500 mg PO BID 04/25/21 04/25/21 History Allergies Allergy/AdvReac Type Severity Reaction Status Date / Time No Known Allergies Allergy Verified 04/25/21 17:56 Surgical - Exam Vital Signs Temp Pulse Resp BP Pulse Ox 98.4 F 93 18 100/65 99 04/25/21 13:45 04/25/21 13:45 04/25/21 13:45 04/25/21 13:45 04/25/21 13:45 - General well developed, well nourished, no distress, no pain - Eyes PERRL, normal ocular movement - ENT normal nares, normal mucosa - Respiratory normal expansion, normal respiratory effort - Abdomen Abdomen: soft, non tender - Genitourinary [place] draining light pink urine - Psychiatric oriented to time, oriented to person, oriented to place Results - Labs 04/26/21 05:57 04/26/21 05:57 Abnormal Lab Results - Last 24 Hours (Table) 04/25/21 04/25/21 04/25/21 Range/Units 14:48 14:48 14:48 RBC 3.76 L (4.30-5.90) m/uL Hgb 11.5 L (13.0-17.5) gm/dL Hct 35.0 L (39.0-53.0) % MCHC (32.0-37.0) g/dL RDW 15.7 H (11.5-15.5) % Plt Count 497 H (150-450) k/uL MPV (9.5-12.2) fL Sodium 133 L (137-145) mmol/L Carbon Dioxide 19 L (22-30) mmol/L BUN 45 H (9-20) mg/dL Creatinine 1.57 H (0.66-1.25) mg/dL Est GFR (CKD-EPI)AfAm (60.0-200.0) Est GFR (CKD-EPI)NonAf (60.0-200.0) BUN/Creatinine Ratio (12.00-20.00) Ratio Glucose 164 H (74-99) mg/dL POC Glucose (mg/dL) (75-99) mg/dL Plasma Lactic Acid Dada 2.6 H* (0.7-2.0) mmol/L Calcium (8.7-10.3) mg/dL Magnesium (1.5-2.4) mg/dL Total Bilirubin (0.3-1.2) mg/dL AST 16 L (17-59) U/L ALT (10-49) U/L Total Protein (6.2-8.2) g/dL Albumin (3.80-4.90) g/dL Albumin/Globulin Ratio (1.60-3.17) g/dL 04/25/21 04/26/21 04/26/21 Range/Units 21:06 05:57 05:57 RBC 3.19 L (4.30-5.90) m/uL Hgb 9.1 L (13.0-17.5) gm/dL Hct 29.4 L (39.0-53.0) % MCHC 31.0 L (32.0-37.0) g/dL RDW 14.6 H (11.5-15.5) % Plt Count (150-450) k/uL MPV 8.8 L (9.5-12.2) fL Sodium (137-145) mmol/L Carbon Dioxide 20.3 L (22-30) mmol/L BUN 38.0 H (9-20) mg/dL Creatinine (0.66-1.25) mg/dL Est GFR (CKD-EPI)AfAm 51.6 L (60.0-200.0) Est GFR (CKD-EPI)NonAf 44.5 L (60.0-200.0) BUN/Creatinine Ratio 27.14 H (12.00-20.00) Ratio Glucose 116 H (74-99) mg/dL POC Glucose (mg/dL) 147 H (75-99) mg/dL Plasma Lactic Acid Dada (0.7-2.0) mmol/L Calcium 8.6 L (8.7-10.3) mg/dL Magnesium 1.4 L (1.5-2.4) mg/dL Total Bilirubin 0.2 L (0.3-1.2) mg/dL AST 11 L (17-59) U/L ALT <8 L (10-49) U/L Total Protein 5.6 L (6.2-8.2) g/dL Albumin 3.40 L (3.80-4.90) g/dL Albumin/Globulin Ratio 1.55 L (1.60-3.17) g/dL 04/26/21 04/26/21 Range/Units 06:40 11:56 RBC (4.30-5.90) m/uL Hgb (13.0-17.5) gm/dL Hct (39.0-53.0) % MCHC (32.0-37.0) g/dL RDW (11.5-15.5) % Plt Count (150-450) k/uL MPV (9.5-12.2) fL Sodium (137-145) mmol/L Carbon Dioxide (22-30) mmol/L BUN (9-20) mg/dL Creatinine (0.66-1.25) mg/dL Est GFR (CKD-EPI)AfAm (60.0-200.0) Est GFR (CKD-EPI)NonAf (60.0-200.0) BUN/Creatinine Ratio (12.00-20.00) Ratio Glucose (74-99) mg/dL POC Glucose (mg/dL) 128 H 146 H (75-99) mg/dL Plasma Lactic Acid Dada (0.7-2.0) mmol/L Calcium (8.7-10.3) mg/dL Magnesium (1.5-2.4) mg/dL Total Bilirubin (0.3-1.2) mg/dL AST (17-59) U/L ALT (10-49) U/L Total Protein (6.2-8.2) g/dL Albumin (3.80-4.90) g/dL Albumin/Globulin Ratio (1.60-3.17) g/dL Microbiology - Last 24 Hours (Table) 04/25/21 13:52 Urine Culture - Preliminary Urine,Voided Diabetes panel 04/25/21 04/26/21 Range/Units 14:48 05:57 Sodium 133 L 138 (137-145) mmol/L Potassium 5.0 4.4 (3.5-5.1) mmol/L Chloride 101 109 (98-107) mmol/L Carbon Dioxide 19 L 20.3 L (22-30) mmol/L BUN 45 H 38.0 H (9-20) mg/dL Creatinine 1.57 H 1.4 (0.66-1.25) mg/dL Glucose 164 H 116 H (74-99) mg/dL Calcium 9.6 8.6 L (8.4-10.2) mg/dL AST 16 L 11 L (17-59) U/L ALT 9 <8 L (4-49) U/L Alkaline Phosphatase 74 55 (38-126) U/L Total Protein 6.8 5.6 L (6.3-8.2) g/dL Albumin 3.8 3.40 L (3.5-5.0) g/dL Thyroid panel 04/26/21 Range/Units 05:57 TSH 1.720 (0.350-5.500) uIU/mL Calcium panel 04/25/21 04/26/21 Range/Units 14:48 05:57 Calcium 9.6 8.6 L (8.4-10.2) mg/dL Albumin 3.8 3.40 L (3.5-5.0) g/dL Pituitary panel 04/25/21 04/26/21 Range/Units 14:48 05:57 Sodium 133 L 138 (137-145) mmol/L Potassium 5.0 4.4 (3.5-5.1) mmol/L Chloride 101 109 (98-107) mmol/L Carbon Dioxide 19 L 20.3 L (22-30) mmol/L BUN 45 H 38.0 H (9-20) mg/dL Creatinine 1.57 H 1.4 (0.66-1.25) mg/dL Glucose 164 H 116 H (74-99) mg/dL Calcium 9.6 8.6 L (8.4-10.2) mg/dL TSH 1.720 (0.350-5.500) uIU/mL Adrenal panel 04/25/21 04/26/21 Range/Units 14:48 05:57 Sodium 133 L 138 (137-145) mmol/L Potassium 5.0 4.4 (3.5-5.1) mmol/L Chloride 101 109 (98-107) mmol/L Carbon Dioxide 19 L 20.3 L (22-30) mmol/L BUN 45 H 38.0 H (9-20) mg/dL Creatinine 1.57 H 1.4 (0.66-1.25) mg/dL Glucose 164 H 116 H (74-99) mg/dL Calcium 9.6 8.6 L (8.4-10.2) mg/dL Total Bilirubin 0.2 0.2 L (0.2-1.3) mg/dL AST 16 L 11 L (17-59) U/L ALT 9 <8 L (4-49) U/L Alkaline Phosphatase 74 55 (38-126) U/L Total Protein 6.8 5.6 L (6.3-8.2) g/dL Albumin 3.8 3.40 L (3.5-5.0) g/dL Assessment and Plan Assessment: 78-year-old male admitted to the hospital with weakness and a UTI. Urology is consulted for possible bladder mass vs urinary retention. He has history of prostate cancer treated in the past with radiation, no recent PSA. has LUTS at baseline, previously on Flomax, but no longer taking it. [place] placed with return of 400 mL. his hematuria is most likely from trauma from catheter placement Plan: -We'll obtain a PSA -CT abdomen and pelvis -Will restart flomax -recommend abx for 7 days if culture is positive -TOV in 3 days, if still in the hospital can be performed while inpatient, otherwise can follow-up as an outpatient for TOV
[2021-04-26 16:51] LABS: Glucose,Whole Blood 128 mg/dL (75-99)
[2021-04-26] MEDS ORDERED: SODIUM CHLORIDE 0.9% 500 ML 500 ML IV ONE (20:15)
[2021-04-26 20:27] LABS: Glucose,Whole Blood 192 mg/dL (75-99)
--- NOTE | 2021-04-27 02:12 | CT ---
EXAMINATION TYPE: CT renal stones wo con DATE OF EXAM: 04/26/2021 COMPARISON: 07/29/2019 HISTORY: bladder mass, hematuria CT DLP: 504.8 mGycm Automated exposure control for dose reduction was used. Images obtained from the diaphragm to the floor the pelvis with no contrast. There is some mild atelectasis at the lung bases. Heart size is normal. There is no pericardial effus ion. Liver and spleen are intact. Bile ducts are not dilated. Gallbladder is intact. There is increased de nsity in the dependent gallbladder that could be small gallstones.. There is no evidence of pancreati c mass. There is pancreatic atrophy. There is no adrenal mass. There is bilateral hydronephrosis and hydroureter. I see no definite ureter al calculus or renal calculus. There is 3.9 cm cortical cyst lateral left kidney unchanged. There is no retroperitoneal adenopathy. Appendix is posterior and appears normal. Urinary bladder is empty. Th ere is [place] catheter in the bladder. Bladder not well evaluated. There is no inguinal hernia. There is no mesenteric edema. There is no ascites or free air. There is no bowel obstruction. The lumbar vertebra have normal alignment. There is degenerative disc space narrowing and spur format ion throughout the lumbar spine. There is no compression fracture. There is multilevel lumbar bony sp inal stenosis. This is most severe at L4-5. There is severe narrowing left hip joint space with spur formation. IMPRESSION: Bilateral hydronephrosis and hydroureter. No obstructing calculus seen. Urinary bladder not well eval uated. Hydronephrosis is new compared to old exam.
[2021-04-27] MEDS: HYDROcodone/APAP 5-325MG 1 EACH TAB PO PRN ×4 (05:58→17:51)
[2021-04-27] MEDS: SODIUM CHLORIDE 0.9% 1,000 ML IV SCH ×3 (06:01→22:09)
[2021-04-27 07:08] LABS: Glucose,Whole Blood 109 mg/dL (75-99)
[2021-04-27] MEDS: INSULIN ASPART (NovoLOG) 100 UNIT/ML VIAL SQ SCH ×4 (07:32→22:05)
[2021-04-27] MEDS: ATORVASTATIN 20 MG TAB PO SCH (07:48)
[2021-04-27] MEDS: CHOLECALCIFEROL 25 MCG (1000 IU) TABLET PO SCH (07:48)
[2021-04-27] MEDS: TAMSULOSIN 0.4 MG CAP.ER.24H PO SCH (07:48)
[2021-04-27] MEDS: FLUoxetine HCL 20 MG CAP PO SCH (07:48)
[2021-04-27] MEDS: HEPARIN SODIUM,PORCINE/PF 5,000 UNIT/0.5 ML SYRINGE SQ SCH ×2 (07:48→22:05)
[2021-04-27 11:10] LABS: HCT 30.9 % (39.6-50.0); MCHC 29.1 g/dL (32.0-37.0); Mean Platelet Volume 9.2 fL (9.5-12.2); Platelet Count 380 X 10*3/uL (140-440); RBC 3.22 X 10*6/uL (4.40-5.60); RDW 14.7 % (11.5-14.5); WBC 9.18 X 10*3/uL (4.50-10.00)
[2021-04-27] MEDS ORDERED: MORPHINE SULFATE 2 MG/ML SYRINGE IV PRN (11:26)
[2021-04-27 11:30] LABS: African American GFR (CKD) 69.1 (60.0-200.0); Anion Gap 10.4 mmol/L (4.00-12.00); Calcium 8.2 mg/dL (8.7-10.3); Carbon Dioxide 21.6 mmol/L (21.6-31.8); Magnesium 2.1 mg/dL (1.5-2.4); Non-African American GFR(CKD) 59.6 (60.0-200.0); Potassium 4.3 mmol/L (3.5-5.5)
[2021-04-27 11:53] LABS: Glucose,Whole Blood 183 mg/dL (75-99)
--- NOTE | 2021-04-27 15:39 | P.PN ---
<Erik Del Angel - Last Filed: 04/27/21 15:20> Subjective Progress Note Date: 04/27/21 Hospital course: Patient is a very pleasant 86-year-old male with a past medical history of pro state cancer, diabetes mellitus, hypertension, hyperlipidemia, and osteoarthritis. He presented to the emergency department with a chief complaint of progressive weakness with reports of loss of appetite, 18 pound weight loss, urinary frequency and dysuria. Patient reports these symptoms began one month ago and have progressively worsened. Patient was seen and fully evaluated in the emergency department. CBC was completed showing no significant abnormalities with the exception of mild normocytic normochromic anemia with hemoglobin of 11.5 and thrombocytosis with platelet count of 497. BMP revealed mild hyponatremia with sodium of 133 and acute kidney injury with BUN of 45, creatinine 1.57, and GFR of 39 1.57 with baseline creatinine of 1.3. Hyperglycemia with glucose of 164, and lactic acidosis with lactate of 2.6. Troponin negative at less than 0.012. Urinalysis positive for infection with greater than 182 WBCs. Chest x-ray negative for acute cardiopulmonary process revealing a stable small right pleural effusion EKG revealing normal sinus rhythm at 76 bpm with a left bundle branch block. No previous EKGs available for comparison. Patient diagnosed with UTI and started on IV antibiotic, Rocephin. Patient admitted under our services at this time. Patient seen and physical examination completed at the bedside. He reports feeling very weak and lethargic. He also reports having chronic diarrhea, but states this has been chronic in nature since receiving radiation from his prostate cancer greater than 15 years ago. Patient denies having any increases in or changes in stool consistency or frequency. He denies having any hematuria, hematochezia, or melena. Patient and his family at bedside reports patient has pretty much been lying around and sleeping on the couch for the past 3 weeks. They report him having an 18 pound weight loss that they contribute to his significantly decreased appetite. Patient also reports having chronic back pains lower back done at bedside reports this is why he feels his father is not getting out of bed. Patient denies having any recent fevers, chills, diaphoresis, headache, lightheadedness, dizziness, chest pain, palpitations, shortness of breath, dyspnea with exertion, abdominal pain, nausea, vomiting, or experiencing any pain/numbness/tingling/weakness in his extremities. She reports history of prostate cancer greater than 14 years ago in which she was treated with radiation and went into remission. Patient also reports having a MRI on his pancreas and renal cysts 1 year ago and was informed there were no changes from previous year. 04/26/21: Patient was seen and fully evaluated at the bedside this morning. He reports having pain described as a sharp burning sensation to suprapubic/bladder region. Order placed for bladder scan revealing post void residual greater than 300 mL. Patient started on Flomax 0.4 mg daily and bladder ultrasound completed. Bladder ultrasound revealed a 4.4 cm equally of hypodensity along the bladder suspicious for bladder mass versus prostate enlargement. Patient again having urinary retention and [place] catheter was placed at this time. Order was placed for consult to urology. Patient remains on Rocephin for treatment of Acute cystitis. Patient denies having any other complaints at this time including chills, diaphoresis, headache, lightheadedness, dizziness, chest pain, palpitations, shortness of breath, or dyspnea with exertion. Patient states that he still feels very tired and weak and continues to have no ramon etite. 04/27/21: Patient seen and fully evaluated at bedside this morning. Patient reports acute exacerbation of his chronic pain to right leg not controlled by pain medication administered. Additional orders placed. Patient reports continued mild discomfort to suprapubic region, [place] catheter remains in place with 1650 mL's of urinary output over the past 24 hours. Patient had completed renal CT which revealed bilateral hydronephrosis and hydroureter. Urine culture resulted positive for gram-negative bacilli. He remains on IV antibiotics: Rocephin at this time. Urology following, recommending keeping [place] in place and performing voiding trial in 3 days. Physical exam: Vital signs reviewed and stable. General: Nontoxic, no distress and appears stated age. Derm: Skin warm and dry, pale. Head: Atraumatic, normocephalic and symmetric. Eyes: no lid lag, and anicteric sclera Mouth: no lip lesions, mucus membranes moist Cardiovascular: regular rate and rhythm with normal S1S2, no murmur, positive posterior tibial pulses bilaterally, and cap refill < 2 seconds. Lungs: Respirations even, regular, and unlabored on room air. Lungs CTA bilaterally, no rhonchi, no rales, no wheezing, and no accessory muscle usage. Abdominal: soft, suprapubic tenderness to palpation, no guarding, no appreciable organomegaly Ext: ROM intact. No gross muscle atrophy, no edema, no contractures. Mild swelling and tenderness to right knee. Neuro: Speech clear, face symmetrical and CN II-XII grossly intact with no noted focal neuro deficits Psych: Alert and oriented to person, place, time, and situation. Appropriate and pleasant affect. Assessment and Plan of Care: Acute cystitis with urinary frequency, dysuria, and retention with positive cultures for gram-negative bacilli -Urinalysis positive for infection with greater than 182 WBCs. -Urine culture positive for gram-negative bacilli -IV antibiotic Rocephin -Gentle hydration with IV fluids -Bladder scan identifying persistent urinary retention, [place] catheter placed. -Bladder ultrasound completed revealing a 4.4 cm equally of hypodensity along the bladder suspicious for bladder mass versus prostate enlargement. -Renal CT which revealed bilateral hydronephrosis and hydroureter. -Patient started on Flomax 0.4 mg daily -Urology following Suprapubic pain -Bladder ultrasound completed revealing a 4.4 cm equally of hypodensity along the bladder suspicious for bladder mass versus prostate enlargement. -Renal CT which revealed bilateral hydronephrosis and hydroureter. -[place] catheter placed secondary to persistent urinary retention. -Urology following Generalized weakness, lethargy, decreased appetite and weight loss -Treatment of underlying infectious process, UTI with Rocephin -Gentle hydration with IV fluids -Consult to nutrition services -PT/OT -CT thoracic and lumbar spine showing moderate to severe spinal stenosis from L3 through S1, no suspicious lesions reported. -Bladder ultrasound completed revealing a 4.4 cm equally of hypodensity along the bladder suspicious for bladder mass versus prostate enlargement. Urology consulted secondary to urinary retention and history of prostate cancer. -Renal CT which revealed bilateral hydronephrosis and hydroureter. -Symptomatic care and assistance as needed -Fall precautions Hypomagnesemia, resolved We will continue to monitor with repeat a.m. labs and replace abnormal electrolyte values as needed. Back pain with history of lumbar fusion -Symptomatic care and pain management -PT/OT consult -CT thoracic and lumbar spine revealing moderate to severe spinal stenosis from L3 through S1 -Fall precautions [id number] diabetes mellitus -Hold Glucophage in place patient on glycemic protocol with NovoLog sliding scale. Hyperlipidemia -Continue daily medication regimen with atorvastatin CODE STATUS: Full code DVT prophylaxis: Heparin Discussed with: Patient and RN Anticipated discharge date: Clinical course to determine Anticipated discharge place: Home A total of 45 minutes was spent on the care of this complex patient more than 50% of the time was spent in counseling and care coordination. Objective - Vital Signs Vital signs: Vital Signs Temp 98.6 F 04/27/21 08:43 Pulse 66 04/27/21 08:43 Resp 18 04/27/21 08:43 BP 98/62 04/27/21 08:43 Pulse Ox 95 04/27/21 08:43 Intake & Output 04/26/21 04/27/21 04/27/21 18:59 06:59 18:59 Output Total 850 800 Balance -850 -800 Weight 62.596 kg Output: Urine 850 800 Other: Voiding Method Toilet Indwelling Catheter Indwelling Catheter Diaper - Labs CBC & Chem 7: 04/27/21 07:31 04/27/21 07:31 Labs: Abnormal Lab Results - Last 24 Hours (Table) 04/26/21 04/26/21 04/26/21 Range/Units 11:56 16:50 20:25 POC Glucose (mg/dL) 146 H 128 H 192 H (75-99) mg/dL 04/27/21 Range/Units 07:07 POC Glucose (mg/dL) 109 H (75-99) mg/dL Microbiology - Last 24 Hours (Table) 04/25/21 13:52 Urine Culture - Preliminary Urine,Voided Gram Neg Bacilli 04/25/21 16:38 Blood Culture - Preliminary Blood No Growth after 24 hours 04/25/21 16:38 Blood Culture - Preliminary Blood No Growth after 24 hours <Elvira Mcdaniels - Last Filed: 04/27/21 19:01> Subjective Erik Del Angel NP rendered care for this patient independently, reviewed the findings and plan as documented in the note above. I did not physically speak with or examine the patient on this date. Objective - Vital Signs Vital signs: Vital Signs Temp 98.6 F 04/27/21 14:00 Pulse 73 04/27/21 14:00 Resp 16 04/27/21 14:00 BP 108/58 04/27/21 14:00 Pulse Ox 98 04/27/21 14:00 Intake & Output 04/26/21 04/27/21 04/27/21 18:59 06:59 18:59 Output Total 850 800 950 Balance -850 -800 -950 Weight 62.596 kg Output: Urine 850 800 950 Other: Voiding Method Toilet Indwelling Catheter Indwelling Catheter Diaper - Labs CBC & Chem 7: 04/27/21 07:31 04/27/21 07:31 Labs: Abnormal Lab Results - Last 24 Hours (Table) 04/26/21 04/27/21 04/27/21 Range/Units 20:25 07:07 07:31 RBC 3.22 L (4.40-5.60) X 10*6/uL Hgb 9.0 L (13.0-17.0) g/dL Hct 30.9 L (39.6-50.0) % MCHC 29.1 L (32.0-37.0) g/dL RDW 14.7 H (11.5-14.5) % MPV 9.2 L (9.5-12.2) fL Est GFR (CKD-EPI)NonAf (60.0-200.0) Glucose (70-110) mg/dL POC Glucose (mg/dL) 192 H 109 H (75-99) mg/dL Calcium (8.7-10.3) mg/dL 04/27/21 04/27/21 04/27/21 Range/Units 07:31 11:52 17:07 RBC (4.40-5.60) X 10*6/uL Hgb (13.0-17.0) g/dL Hct (39.6-50.0) % MCHC (32.0-37.0) g/dL RDW (11.5-14.5) % MPV (9.5-12.2) fL Est GFR (CKD-EPI)NonAf 59.6 L (60.0-200.0) Glucose 143 H (70-110) mg/dL POC Glucose (mg/dL) 183 H 147 H (75-99) mg/dL Calcium 8.2 L (8.7-10.3) mg/dL Microbiology - Last 24 Hours (Table) 04/25/21 16:38 Blood Culture - Preliminary Blood No Growth after 48 hours 04/25/21 13:52 Urine Culture - Preliminary Urine,Voided Gram Neg Bacilli 04/25/21 16:38 Blood Culture - Preliminary Blood No Growth after 24 hours
[2021-04-27 17:09] LABS: Glucose,Whole Blood 147 mg/dL (75-99)
--- NOTE | 2021-04-27 17:41 | P.PN ---
Subjective Progress Note Date: 04/27/21 No acute overnight events, underwent a CT yesterday which showed evidence of bilateral hydronephrosis. Denies any flank pain, creatinine is at baseline Objective - Vital Signs Vital signs: Vital Signs Temp 98.6 F 04/27/21 14:00 Pulse 73 04/27/21 14:00 Resp 16 04/27/21 14:00 BP 108/58 04/27/21 14:00 Pulse Ox 98 04/27/21 14:00 Intake & Output 04/26/21 04/27/21 04/27/21 18:59 06:59 18:59 Output Total 850 800 Balance -850 -800 Weight 62.596 kg Output: Urine 850 800 Other: Voiding Method Toilet Indwelling Catheter Indwelling Catheter Diaper - Constitutional General appearance: Present: no acute distress - Gastrointestinal General gastrointestinal: Present: soft. Absent: distended - Labs CBC & Chem 7: 04/27/21 07:31 04/27/21 07:31 Labs: Abnormal Lab Results - Last 24 Hours (Table) 04/26/21 04/27/21 04/27/21 Range/Units 20:25 07:07 07:31 RBC 3.22 L (4.40-5.60) X 10*6/uL Hgb 9.0 L (13.0-17.0) g/dL Hct 30.9 L (39.6-50.0) % MCHC 29.1 L (32.0-37.0) g/dL RDW 14.7 H (11.5-14.5) % MPV 9.2 L (9.5-12.2) fL Est GFR (CKD-EPI)NonAf (60.0-200.0) Glucose (70-110) mg/dL POC Glucose (mg/dL) 192 H 109 H (75-99) mg/dL Calcium (8.7-10.3) mg/dL 04/27/21 04/27/21 04/27/21 Range/Units 07:31 11:52 17:07 RBC (4.40-5.60) X 10*6/uL Hgb (13.0-17.0) g/dL Hct (39.6-50.0) % MCHC (32.0-37.0) g/dL RDW (11.5-14.5) % MPV (9.5-12.2) fL Est GFR (CKD-EPI)NonAf 59.6 L (60.0-200.0) Glucose 143 H (70-110) mg/dL POC Glucose (mg/dL) 183 H 147 H (75-99) mg/dL Calcium 8.2 L (8.7-10.3) mg/dL Microbiology - Last 24 Hours (Table) 04/25/21 13:52 Urine Culture - Preliminary Urine,Voided Gram Neg Bacilli 04/25/21 16:38 Blood Culture - Preliminary Blood No Growth after 24 hours 04/25/21 16:38 Blood Culture - Preliminary Blood No Growth after 24 hours Assessment and Plan Assessment: 78-year-old male admitted to the hospital with weakness and a UTI. Urology is consulted for possible bladder mass and urinary retention. He has history of prostate cancer treated in the past with radiation, no recent PSA. has LUTS at baseline, previously on Flomax, but no longer taking it. [place] placed with return of 400 mL. his hematuria is most likely from trauma from catheter placement. CT yesterday showed evidence of mild bilateral hydronephrosis, his hydronephrosis is secondary to his urinary retention, his creat is at baseline Plan: -F/U PSA -Will restart flomax, recommend discharge patient on Flomax -recommend abx for 7 days if culture is positive -TOV in 3 days, if still in the hospital can be performed while inpatient, otherwise can follow-up as an outpatient for TOV -Follow-up as an outpatient for cystoscopy, to evaluate the possible bladder mass
[2021-04-27 20:35] LABS: Glucose,Whole Blood 147 mg/dL (75-99)
[2021-04-28] MEDS: HYDROcodone/APAP 5-325MG 1 EACH TAB PO PRN (00:06)
[2021-04-28] MEDS: SODIUM CHLORIDE 0.9% 1,000 ML IV SCH (05:47)
[2021-04-28 06:52] LABS: Glucose,Whole Blood 127 mg/dL (75-99)
[2021-04-28] MEDS: INSULIN ASPART (NovoLOG) 100 UNIT/ML VIAL SQ SCH ×4 (07:13→22:25)
[2021-04-28] MEDS: TAMSULOSIN 0.4 MG CAP.ER.24H PO SCH (08:01)
[2021-04-28] MEDS: CHOLECALCIFEROL 25 MCG (1000 IU) TABLET PO SCH (08:01)
[2021-04-28] MEDS: HEPARIN SODIUM,PORCINE/PF 5,000 UNIT/0.5 ML SYRINGE SQ SCH ×2 (08:01→22:25)
[2021-04-28] MEDS: ATORVASTATIN 20 MG TAB PO SCH (08:01)
[2021-04-28] MEDS: FLUoxetine HCL 20 MG CAP PO SCH (08:01)
[2021-04-28] MEDS ORDERED: MORPHINE SULFATE 2 MG/ML SYRINGE IVP STA (09:56)
[2021-04-28] MEDS ORDERED: MORPHINE SULFATE 4 MG/ML SYRINGE IV PRN (09:56)
[2021-04-28] MEDS ORDERED: SULFAMETHOX-TMP 800-160MG 1 EACH TAB PO SCH (10:15)
[2021-04-28 11:45] LABS: Glucose,Whole Blood 162 mg/dL (75-99)
--- NOTE | 2021-04-28 13:25 | XR ---
EXAMINATION TYPE: XR knee complete bilateral DATE OF EXAM: 04/28/2021 CLINICAL HISTORY: Pain and swelling. TECHNIQUE: Three views of the bilateral knee are obtained. COMPARISON: None. FINDINGS: There is no acute fracture/dislocation evident in left or right knee. There are advanced t ricompartmental degenerative changes with [id number]. There are bilateral effusions. Tiny osteochondromas of the proximal left tibia. IMPRESSION: Advanced tricompartmental degenerative changes without an acute fracture or dislocation i n the left or right knee knee. [id number] bilateral effusions.
[2021-04-28] MEDS ORDERED: KETOROLAC 15 MG/ML 1 ML VIAL IVP PRN (13:41)
[2021-04-28] MEDS ORDERED: methylPREDNISolone SOD SUCCI 125 MG/2 ML VIAL IV STA (13:42)
--- NOTE | 2021-04-28 13:49 | P.PN ---
<Erik Del Angel - Last Filed: 04/28/21 13:02> Subjective Progress Note Date: 04/28/21 Hospital course: Patient is a very pleasant 86-year-old male with a past medical history of pro state cancer, diabetes mellitus, hypertension, hyperlipidemia, and osteoarthritis. He presented to the emergency department with a chief complaint of progressive weakness with reports of loss of appetite, 18 pound weight loss, urinary frequency and dysuria. Patient reports these symptoms began one month ago and have progressively worsened. Patient was seen and fully evaluated in the emergency department. CBC was completed showing no significant abnormalities with the exception of mild normocytic normochromic anemia with hemoglobin of 11.5 and thrombocytosis with platelet count of 497. BMP revealed mild hyponatremia with sodium of 133 and acute kidney injury with BUN of 45, creatinine 1.57, and GFR of 39 1.57 with baseline creatinine of 1.3. Hyperglycemia with glucose of 164, and lactic acidosis with lactate of 2.6. Troponin negative at less than 0.012. Urinalysis positive for infection with greater than 182 WBCs. Chest x-ray negative for acute cardiopulmonary process revealing a stable small right pleural effusion EKG revealing normal sinus rhythm at 76 bpm with a left bundle branch block. No previous EKGs available for comparison. Patient diagnosed with UTI and started on IV antibiotic, Rocephin. Patient admitted under our services at this time. Patient seen and physical examination completed at the bedside. He reports feeling very weak and lethargic. He also reports having chronic diarrhea, but states this has been chronic in nature since receiving radiation from his prostate cancer greater than 15 years ago. Patient denies having any increases in or changes in stool consistency or frequency. He denies having any hematuria, hematochezia, or melena. Patient and his family at bedside reports patient has pretty much been lying around and sleeping on the couch for the past 3 weeks. They report him having an 18 pound weight loss that they contribute to his significantly decreased appetite. Patient also reports having chronic back pains lower back done at bedside reports this is why he feels his father is not getting out of bed. Patient denies having any recent fevers, chills, diaphoresis, headache, lightheadedness, dizziness, chest pain, palpitations, shortness of breath, dyspnea with exertion, abdominal pain, nausea, vomiting, or experiencing any pain/numbness/tingling/weakness in his extremities. She reports history of prostate cancer greater than 14 years ago in which she was treated with radiation and went into remission. Patient also reports having a MRI on his pancreas and renal cysts 1 year ago and was informed there were no changes from previous year. 04/26/21: Patient was seen and fully evaluated at the bedside this morning. He reports having pain described as a sharp burning sensation to suprapubic/bladder region. Order placed for bladder scan revealing post void residual greater than 300 mL. Patient started on Flomax 0.4 mg daily and bladder ultrasound completed. Bladder ultrasound revealed a 4.4 cm equally of hypodensity along the bladder suspicious for bladder mass versus prostate enlargement. Patient again having urinary retention and [place] catheter was placed at this time. Order was placed for consult to urology. Patient remains on Rocephin for treatment of Acute cystitis. Patient denies having any other complaints at this time including chills, diaphoresis, headache, lightheadedness, dizziness, chest pain, palpitations, shortness of breath, or dyspnea with exertion. Patient states that he still feels very tired and weak and continues to have no ramon etite. 04/27/21: Patient seen and fully evaluated at bedside this morning. Patient reports acute exacerbation of his chronic pain to right leg not controlled by pain medication administered. Additional orders placed. Patient reports continued mild discomfort to suprapubic region, [place] catheter remains in place with 1650 mL's of urinary output over the past 24 hours. Patient had completed renal CT which revealed bilateral hydronephrosis and hydroureter. Urine culture resulted positive for gram-negative bacilli. He remains on IV antibiotics: Rocephin at this time. Urology following, recommending keeping [place] in place and performing voiding trial in 3 days. 04/28/21: Patient seen and fully evaluated at bedside this morning. He reports increased pain and swelling to bilateral knees throughout the night and morning. Patient reports pain is significantly worse than his normal running pain and he is now having difficulties with movement almost as if "my knees are seized up". Patient denies having any recent falls or injuries. Upon assessment patient with moderate swelling to the anterior surface of bilateral knees consistent to mild to moderate joint effusion, worse on right. Significant tenderness around the patellar joint with point tenderness around medial condyle. No erythema or discoloration noted. Orders placed for pain management and x-ray of bilateral knees. X-ray was completed this morning, results revealing advanced tricompartmental degenerative changes without acute fracture or dislocation in the left or right knees with small to moderate bilateral effusions and tiny osteochondromas of the proximal left tibia. Urine culture positive for Serratia marcescens, Rocephin discontinued secondary to resistance and pt started on Bactrim per sensitivity report. Infectious disease consulted secondary to multi resistant gram-negative bacteria and plans for upcoming ooutpatient cystoscopy to evaluate possible bladder mass. Physical exam: Vital signs reviewed and stable. General: Nontoxic, no distress and appears stated age. Derm: Skin warm and dry, pale. Head: Atraumatic, normocephalic and symmetric. Eyes: no lid lag, and anicteric sclera Mouth: no lip lesions, mucus membranes moist Cardiovascular: regular rate and rhythm with normal S1S2, no murmur, positive posterior tibial pulses bilaterally, and cap refill < 2 seconds. Lungs: Respirations even, regular, and unlabored on room air. Lungs CTA bilaterally, no rhonchi, no rales, no wheezing, and no accessory muscle usage. Abdominal: soft, suprapubic tenderness to palpation, no guarding, no appreciable organomegaly Ext: ROM intact. No gross muscle atrophy, no edema, no contractures. Mild swelling and tenderness to right knee. Neuro: Speech clear, face symmetrical and CN II-XII grossly intact with no noted focal neuro deficits Psych: Alert and oriented to person, place, time, and situation. Appropriate and pleasant affect. Assessment and Plan of Care: Acute cystitis with urinary frequency, dysuria, and retention with positive cultures for gram-negative bacilli -Urinalysis positive for infection with greater than 182 WBCs. -Urine culture positive for Serratia marcescens, Rocephin discontinued secondary to resistance and pt started on Bactrim per sensitivity report. -Infectious disease consulted secondary to multi resistant gram-negative bacteria and plans for upcoming ooutpatient cystoscopy to evaluate possible bladder mass. -Antibiotic Bactrim, per sensitivity report pending further recommendations from infectious disease. -Bladder scan identified persistent urinary retention, [place] catheter placed. -Bladder ultrasound completed revealing a 4.4 cm equally of hypodensity along the bladder suspicious for bladder mass versus prostate enlargement. -Renal CT which revealed bilateral hydronephrosis and hydroureter. -Continue Flomax 0.4 mg daily -Urology following, recommended continued [place] with plans for TOV in 3 days followed by outpatient cystoscopy to evaluate possible bladder mass. Suprapubic pain -Bladder ultrasound completed revealing a 4.4 cm equally of hypodensity along the bladder suspicious for bladder mass versus prostate enlargement. -Renal CT which revealed bilateral hydronephrosis and hydroureter. -[place] catheter placed secondary to persistent urinary retention. -Urology following, recommended continued [place] with plans for TOV in 3 days followed by outpatient cystoscopy to evaluate possible bladder mass. Bilateral knee pain, swelling, and stiffness -Likely secondary to arthritis and prolonged time in bed over three-day hospitalization course -X-rays bilateral knees: X-rays revealing advanced tricompartmental degenerative changes without acute fracture or dislocation in the left or right knees with small to moderate bilateral effusions and tiny osteochondromas of the proximal left tibia. -Symptomatic care and pain management, patient being given one dose of Solu- Medrol 125 mg IVP along with PRN NSAIDS -Uric acid to be obtained. -Encourage patient to get up to chair with meals -Consult mental health program specialist -Continue PT/OT -Continue fall precautions. Generalized weakness, lethargy, decreased appetite and weight loss -Treatment of underlying infectious process, UTI with Rocephin -Gentle hydration with IV fluids -Consult to nutrition services -PT/OT -CT thoracic and lumbar spine showing moderate to severe spinal stenosis from L3 through S1, no suspicious lesions reported. -Bladder ultrasound completed revealing a 4.4 cm equally of hypodensity along the bladder suspicious for bladder mass versus prostate enlargement. Urology consulted secondary to urinary retention and history of prostate cancer. -Renal CT which revealed bilateral hydronephrosis and hydroureter. -Symptomatic care and assistance as needed -Fall precautions Hypomagnesemia, resolved We will continue to monitor with repeat a.m. labs and replace abnormal electrolyte values as needed. Back pain with history of lumbar fusion -Symptomatic care and pain management -PT/OT consult -CT thoracic and lumbar spine revealing moderate to severe spinal stenosis from L3 through S1 -Fall precautions [id number] diabetes mellitus -Hold Glucophage in place patient on glycemic protocol with NovoLog sliding scale. Hyperlipidemia -Continue daily medication regimen with atorvastatin CODE STATUS: Full code DVT prophylaxis: Heparin Discussed with: Patient and RN Anticipated discharge date: Clinical course to determine Anticipated discharge place: Home A total of 45 minutes was spent on the care of this complex patient more than 50% of the time was spent in counseling and care coordination. Objective - Vital Signs Vital signs: Vital Signs Temp 98.2 F 04/28/21 08:00 Pulse 94 04/28/21 08:00 Resp 20 04/28/21 08:00 BP 154/80 04/28/21 08:00 Pulse Ox 97 04/28/21 08:00 Intake & Output 04/27/21 04/28/21 04/28/21 18:59 06:59 18:59 Output Total 950 875 Balance -950 -875 Output: Urine 950 875 Other: Voiding Method Indwelling Catheter Indwelling Catheter # Voids 3 - Labs CBC & Chem 7: 04/27/21 07:31 04/27/21 07:31 Labs: Abnormal Lab Results - Last 24 Hours (Table) 04/27/21 04/27/21 04/27/21 Range/Units 07:31 07:31 11:52 RBC 3.22 L (4.40-5.60) X 10*6/uL Hgb 9.0 L (13.0-17.0) g/dL Hct 30.9 L (39.6-50.0) % MCHC 29.1 L (32.0-37.0) g/dL RDW 14.7 H (11.5-14.5) % MPV 9.2 L (9.5-12.2) fL Est GFR (CKD-EPI)NonAf 59.6 L (60.0-200.0) Glucose 143 H (70-110) mg/dL POC Glucose (mg/dL) 183 H (75-99) mg/dL Calcium 8.2 L (8.7-10.3) mg/dL 04/27/21 04/27/21 04/28/21 Range/Units 17:07 20:34 06:50 RBC (4.40-5.60) X 10*6/uL Hgb (13.0-17.0) g/dL Hct (39.6-50.0) % MCHC (32.0-37.0) g/dL RDW (11.5-14.5) % MPV (9.5-12.2) fL Est GFR (CKD-EPI)NonAf (60.0-200.0) Glucose (70-110) mg/dL POC Glucose (mg/dL) 147 H 147 H 127 H (75-99) mg/dL Calcium (8.7-10.3) mg/dL Microbiology - Last 24 Hours (Table) 04/25/21 13:52 Urine Culture - Final Urine,Voided Serratia marcescens 04/25/21 16:38 Blood Culture - Preliminary Blood No Growth after 48 hours 04/25/21 16:38 Blood Culture - Preliminary Blood No Growth after 48 hours <Elvira Mcdaniels - Last Filed: 04/28/21 18:58> Subjective Patient seen and examined independently. Patient was also seen by Radha Cason and case was discussed. I am in agreement with subjective, physical exam, assessment and plan as written above and amended below. Patient complains of pain in bilateral knees as well as back. His back pain is chronic and unchanged. His knee pain is worsened since yesterday with increasing swelling. He states it is very difficult to ambulate and any movement hurts his knees. General: non toxic, no distress, appears at stated age Derm: warm, dry Head: atraumatic, normocephalic, symmetric Eyes: EOMI, no lid lag, anicteric sclera Mouth: no lip lesion, mucus membranes moist Cardiovascular: S1S2 reg, no murmur, positive posterior tibial pulse bilateral, Lungs: CTA bilateral, no rhonchi, no rales , no accessory muscle use Ext: no gross muscle atrophy, no edema, no contractures, bilateral knees with fluid that is palpable and movable consistent with effusion, pain to palpation of medial and lateral joint lines bilaterally, pain to flexion and extension at the knee. These both feel warmer than the rest of his body but there is no erythema. No history of knee replacement. Neuro: CN II-XI grossly intact, no focal neuro deficits Psych: Alert, oriented, appropriate affect Check x-ray of bilateral knees to ensure that there is no signs of fracture with patient's history of recent weakness and difficulty ambulating. Suspect that this is arthritic changes with effusion. Suggest pain control, Toradol, and Solu-Medrol 1 followed with the prednisone. Stop IV fluids. Objective - Vital Signs Vital signs: Vital Signs Temp 99.9 F H 04/28/21 14:31 Pulse 111 H 08/21/21 14:31 Resp 18 04/28/21 14:31 BP 100/61 04/28/21 14:31 Pulse Ox 97 04/28/21 14:31 Intake & Output 04/27/21 04/28/21 04/28/21 18:59 06:59 18:59 Output Total 950 1875 Balance -950 -1875 Output: Urine 950 1875 Other: Voiding Method Indwelling Catheter Indwelling Catheter Indwelling Catheter # Voids 3 - Labs CBC & Chem 7: 04/27/21 07:31 04/27/21 07:31 Labs: Abnormal Lab Results - Last 24 Hours (Table) 04/27/21 04/28/21 04/28/21 Range/Units 20:34 06:50 11:42 POC Glucose (mg/dL) 147 H 127 H 162 H (75-99) mg/dL 04/28/21 Range/Units 16:53 POC Glucose (mg/dL) 170 H (75-99) mg/dL Microbiology - Last 24 Hours (Table) 04/25/21 13:52 Urine Culture - Final Urine,Voided Serratia marcescens 04/25/21 16:38 Blood Culture - Preliminary Blood No Growth after 48 hours 04/25/21 16:38 Blood Culture - Preliminary Blood No Growth after 48 hours
[2021-04-28] MEDS: CEFEPIME 2 GM in SODIUM CHLORIDE 0.9% 100 ML IVPB SCH (15:58)
[2021-04-28 16:55] LABS: Glucose,Whole Blood 170 mg/dL (75-99)
[2021-04-28 21:19] LABS: Glucose,Whole Blood 216 mg/dL (75-99)
--- NOTE | 2021-04-28 21:49 | P.CONS ---
History of Present Illness - Reason for Consult Consult date: 04/28/21 serretia UTI Requesting physician: Erik Del Angel - Chief Complaint Weakness and difficulty urination x weeks - History of Present Illness History of present illness : Patient is 86-year male who was brought to the hospital on 04/25/2021 for evaluation of progressive weakness weight loss and chronic diarrhea along with loss of appetite in this patient symptom has be en going on for few days to weeks patient was complaining of some burning of urine and did have some urinary frequency but no suprapubic or flank pain patient was noticed to have low blood pressure and his primary care physician office the day before presentation hospital with the symptom the patient was evaluated by ER physician on arrival to the ER the patient was afebrile did have a low-grade fever of 99.3 yesterday patient has been tachycardic initially he did have a low blood pressure however the blood pressure subsequently stabilized patient did have a normal white count with no left shift did have elevated BUN and creatinine on admission but subsequently have improved with IV fluids p atient did have a chest x-ray small right pleural effusion he did have a bladder ultrasound 4.4 cm soft tissue echogenicity along the posterior margin of the bladder possible bladder mass for the patient is currently being evaluated by urology CT of the kidney did shows bilateral hydronephrosis and hydroureter ureter no obstructive calculus seen patient was treated with Rocephin with urine finalized with Serratia marcescens antibiotic was switched over to Bactrim infectious disease was consulted for further management of antibiotic therapy Review of system: CONSTITUTIONAL: Positive for weakness however denies high-grade fever. EYES: No complaint. ENT: No complaint. RESPIRATORY: No complaint. CARDIOVASCULAR: No complaint. GENITOURINARY: As per history of present illness. GASTROINTESTINAL: No complaint. MUSCULOSKELETAL: No complaint. INTEGUMENTARY: No complaint. PSYCHOLOGIC: No complaint. ENDOCRINE: No complaint. NEUROLOGIC: No complaint. Past medical history : Reviewed, documented below Past surgical history : Reviewed, documented below Social history: Reviewed, documented below Medications: Reviewed, as documented below GENERAL DESCRIPTION: Elderly male lying in bed, no distress. No tachypnea or accessory muscle of respiration use. HEENT: Shows Pallor , no scleral icterus. Oral mucous membrane is dry. NECK: Trachea central, no thyromegaly. LUNGS: Unlabored breathing. Clear to auscultation anteriorly. No wheeze or crackle. HEART: S1, S2, regular rate and rhythm. ABDOMEN: Soft, no tenderness , guarding or rigidity EXTREMITIES: No edema of feet. SKIN: No rash, no masses palpable. NEUROLOGICAL: The patient is awake, alert, oriented x3, mood and affect normal. LABS AND RADIOLOGY: Reviewed results see below Assessment : Patient presented to hospital with weakness weight loss of appetite in this patient who did have a significant elevated BUN and creatinine on admission patient did have evidence of significant hydronephrosis bilateral more likely secondary bladder outlet obstruction positive UA with urine finalized with Serratia marcescens likely complicated UTI which do have multidrug- resistant pathogen Plan: 1-discontinue Bactrim DS as high risk of nephrotoxicity in his situation 2-start the patient cefepime 2 g every 8 hours while inpatient 3-with the plan to be there with oral Cipro x10 days We will follow on clinical condition and cultures to further adjust medication if needed Thank you for this consultation we will follow the patient along with you Past Medical History Past Medical History: Cancer, Diabetes Mellitus, Hyperlipidemia, Hypertension, Osteoarthritis (OA) Additional Past Medical History / Comment(s): prostate CA, History of Any Multi-Drug Resistant Organisms: None Reported Additional Past Surgical History / Comment(s): lamenectomy Past Psychological History: Depression Smoking Status: Never smoker Past Alcohol Use History: None Reported Past Drug Use History: None Reported Medications and Allergies Home Medications Medication Instructions Recorded Confirmed Type Acetaminophen Tab [Tylenol] 650 mg PO Q4H PRN 04/25/21 04/25/21 History Albuterol Inhaler [Ventolin Hfa 2 puff INHALATION RT-QID PRN 04/25/21 04/25/21 History Inhaler] Atorvastatin [Lipitor] 20 mg PO DAILY 04/25/21 04/25/21 History Cholecalciferol [Vitamin D3 (25 50 mcg PO DAILY 04/25/21 04/25/21 History Mcg = 1000 Iu)] FLUoxetine HCL [PROzac] 20 mg PO DAILY 04/25/21 04/25/21 History Loratadine 10 mg PO DAILY 04/25/21 04/25/21 History metFORMIN HCL [Glucophage] 500 mg PO BID 04/25/21 04/25/21 History Allergies Allergy/AdvReac Type Severity Reaction Status Date / Time No Known Allergies Allergy Verified 04/25/21 17:56 Physical Exam Vitals: Vital Signs Temp Pulse Resp BP BP Pulse Ox 04/28/21 09:58 94 L 04/28/21 09:30 18 04/28/21 08:00 98.2 F 94 20 154/80 97 04/28/21 03:25 98.6 F 89 16 130/75 97 04/27/21 20:00 99.3 F 89 16 124/65 99 Intake and Output 04/27/21 04/28/21 04/28/21 22:59 06:59 14:59 Output Total 950 1475 Balance -950 -1475 Output: Urine 950 1475 Other: Voiding Method Indwelling Catheter Indwelling Catheter # Voids 3 Results CBC & Chem 7: 04/27/21 07:31 04/27/21 07:31 Labs: Abnormal Lab Results - Last 24 Hours (Table) 04/27/21 04/27/21 04/28/21 Range/Units 17:07 20:34 06:50 POC Glucose (mg/dL) 147 H 147 H 127 H (75-99) mg/dL 04/28/21 Range/Units 11:42 POC Glucose (mg/dL) 162 H (75-99) mg/dL Microbiology - Last 24 Hours (Table) 04/25/21 13:52 Urine Culture - Final Urine,Voided Serratia marcescens 04/25/21 16:38 Blood Culture - Preliminary Blood No Growth after 48 hours 04/25/21 16:38 Blood Culture - Preliminary Blood No Growth after 48 hours
[2021-04-29] MEDS: CEFEPIME 2 GM in SODIUM CHLORIDE 0.9% 100 ML IVPB SCH ×4 (00:36→23:58)
[2021-04-29 06:55] LABS: Glucose,Whole Blood 148 mg/dL (75-99)
[2021-04-29] MEDS: TAMSULOSIN 0.4 MG CAP.ER.24H PO SCH (08:10)
[2021-04-29] MEDS: CHOLECALCIFEROL 25 MCG (1000 IU) TABLET PO SCH (08:10)
[2021-04-29] MEDS: HEPARIN SODIUM,PORCINE/PF 5,000 UNIT/0.5 ML SYRINGE SQ SCH ×2 (08:10→22:38)
[2021-04-29] MEDS: INSULIN ASPART (NovoLOG) 100 UNIT/ML VIAL SQ SCH ×4 (08:10→22:38)
[2021-04-29] MEDS: FLUoxetine HCL 20 MG CAP PO SCH (08:10)
[2021-04-29] MEDS: ATORVASTATIN 20 MG TAB PO SCH (08:10)
[2021-04-29 10:37] LABS: HCT 25.9 % (39.6-50.0); HGB 7.8 g/dL (13.0-17.0); MCHC 30.1 g/dL (32.0-37.0); MCV 96.3 fL (80.0-97.0); Mean Platelet Volume 8.6 fL (9.5-12.2); Platelet Count 310 X 10*3/uL (140-440); RBC 2.69 X 10*6/uL (4.40-5.60); RDW 14.7 % (11.5-14.5); WBC 12.29 X 10*3/uL (4.50-10.00)
[2021-04-29] MEDS ORDERED: LIDOCAINE 2% INJ 20 MG/ML (20 ML MDV) SQ ONE (11:00)
[2021-04-29] MEDS ORDERED: methylPREDNISolone ACETATE 40 MG/ML 1 ML VIAL INTRAARTIC ONE ×2 (11:00)
[2021-04-29 11:45] LABS: Glucose,Whole Blood 180 mg/dL (75-99)
--- NOTE | 2021-04-29 11:54 | P.CNOR ---
History of Present Illness - [facility] Consult date: 04/29/21 Consult reason: joint pain (Bilateral knee pain and effusions.) History of present illness: This is an 86-year-old male who is admitted with some mental status changes and UTI. He has been having difficulty with ambulation secondary to bilateral knee pain. Orthopedics is consulted for evaluation of his knees. Past Medical History Past Medical History: Cancer, Diabetes Mellitus, Hyperlipidemia, Hypertension, Osteoarthritis (OA) Additional Past Medical History / Comment(s): prostate CA, History of Any Multi-Drug Resistant Organisms: None Reported Additional Past Surgical History / Comment(s): lamenectomy Past Psychological History: Depression Smoking Status: Never smoker Past Alcohol Use History: None Reported Past Drug Use History: None Reported Medications and Allergies Home Medications Medication Instructions Recorded Confirmed Type Acetaminophen Tab [Tylenol] 650 mg PO Q4H PRN 04/25/21 04/25/21 History Albuterol Inhaler [Ventolin Hfa 2 puff INHALATION RT-QID PRN 04/25/21 04/25/21 History Inhaler] Atorvastatin [Lipitor] 20 mg PO DAILY 04/25/21 04/25/21 History Cholecalciferol [Vitamin D3 (25 50 mcg PO DAILY 04/25/21 04/25/21 History Mcg = 1000 Iu)] FLUoxetine HCL [PROzac] 20 mg PO DAILY 04/25/21 04/25/21 History Loratadine 10 mg PO DAILY 04/25/21 04/25/21 History metFORMIN HCL [Glucophage] 500 mg PO BID 04/25/21 04/25/21 History Allergies Allergy/AdvReac Type Severity Reaction Status Date / Time No Known Allergies Allergy Verified 04/25/21 17:56 Physical Examination This is a pleasant 78-year-old male in no acute distress. He is alert with some confusion. He is able to carry on a conversation and does recall seen Dr. Crawford the past for his knees. He is afebrile. Exam of bilateral knees reveals 2+ effusion. No erythema or ecchymosis. He has difficulty moving the knees. Range of motion is significantly limited. He has full foot and ankle motion bilaterally. Neurovascular status to the lower extremities is intact. Results X-rays of bilateral knees reveals severe, [id number] tricompartmental arthritis of both knees. No acute fractures identified. - Labs Labs: Abnormal Lab Results - Last 24 Hours (Table) 04/28/21 04/28/21 04/29/21 Range/Units 16:53 21:18 05:53 WBC 12.29 H (4.50-10.00) X 10*3/uL RBC 2.69 L (4.40-5.60) X 10*6/uL Hgb 7.8 L (13.0-17.0) g/dL Hct 25.9 L (39.6-50.0) % MCHC 30.1 L (32.0-37.0) g/dL RDW 14.7 H (11.5-14.5) % MPV 8.6 L (9.5-12.2) fL Absolute Nucleated RBC 0.03 H (0.00-0.00) X 10*3/uL NRBC/100 WBC Diff 0.2 H (0.0-0.0) /100 WBCS POC Glucose (mg/dL) 170 H 216 H (75-99) mg/dL 04/29/21 04/29/21 Range/Units 06:53 11:41 WBC (4.50-10.00) X 10*3/uL RBC (4.40-5.60) X 10*6/uL Hgb (13.0-17.0) g/dL Hct (39.6-50.0) % MCHC (32.0-37.0) g/dL RDW (11.5-14.5) % MPV (9.5-12.2) fL Absolute Nucleated RBC (0.00-0.00) X 10*3/uL NRBC/100 WBC Diff (0.0-0.0) /100 WBCS POC Glucose (mg/dL) 148 H 180 H (75-99) mg/dL Microbiology - Last 24 Hours (Table) 04/25/21 16:38 Blood Culture - Preliminary Blood No Growth after 72 hours 04/25/21 16:38 Blood Culture - Preliminary Blood No Growth after 72 hours H & H 04/25/21 04/26/21 04/27/21 Range/Units 14:48 05:57 07:31 Hgb 11.5 L 9.1 L 9.0 L (13.0-17.5) gm/dL Hct 35.0 L 29.4 L 30.9 L (39.0-53.0) % 04/29/21 Range/Units 05:53 Hgb 7.8 L (13.0-17.5) gm/dL Hct 25.9 L (39.0-53.0) % Coagulation 04/25/21 Range/Units 14:48 INR 1.0 (<1.2) Result Diagrams: 04/29/21 05:53 04/27/21 07:31 Assessment and Plan (1) Bilateral primary osteoarthritis of knee Current Visit: Yes Status: Acute Code(s): M17.0 - BILATERAL PRIMARY OSTEOARTHRITIS OF KNEE SNOMED Code(s): 432134801 (2) Generalized weakness Current Visit: Yes Status: Acute Code(s): R53.1 - WEAKNESS SNOMED Code(s): 70960168 (3) Urinary tract infection Current Visit: Yes Status: Acute Code(s): N39.0 - URINARY TRACT INFECTION, SITE NOT SPECIFIED SNOMED Code(s): 34755925 Plan: Clinical and x-ray findings are discussed the patient and his daughter. Bilateral knee aspirations and injections Depo-Medrol is performed after consent is obtained by the patient. The plan was discussed with internal medicine as well. Procedure: The right knee was aspirated using sterile technique with 4 mL of 2% lidocaine anesthetic. I obtained approximately 25 mL of cloudy yellow fluid. Fluid was sent to the lab for cell count and crystal identification. The left knee was then aspirated using sterile technique with 4 mL's of 2% lidocaine local anesthetic. I obtained approximately 30 mL of cloudy yellow fluid. Fluid was sent to lab for cell count, crystal identification and culture. Both knees were injected with Depo-Medrol 40 mg. The patient tolerated the aspiration and injection well. We will continue to follow and await lavatory results. There is suspicion for gouty arthritis. This is discussed with the patient and the daughter.
--- NOTE | 2021-04-29 13:04 | P.PN ---
<Erik Del Angel - Last Filed: 04/29/21 13:51> Subjective Progress Note Date: 04/29/21 Hospital course: Patient is a very pleasant 86-year-old male with a past medical history of pro state cancer, diabetes mellitus, hypertension, hyperlipidemia, and osteoarthritis. He presented to the emergency department with a chief complaint of progressive weakness with reports of loss of appetite, 18 pound weight loss, urinary frequency and dysuria. Patient reports these symptoms began one month ago and have progressively worsened. Patient was seen and fully evaluated in the emergency department. CBC was completed showing no significant abnormalities with the exception of mild normocytic normochromic anemia with hemoglobin of 11.5 and thrombocytosis with platelet count of 497. BMP revealed mild hyponatremia with sodium of 133 and acute kidney injury with BUN of 45, creatinine 1.57, and GFR of 39 1.57 with baseline creatinine of 1.3. Hyperglycemia with glucose of 164, and lactic acidosis with lactate of 2.6. Troponin negative at less than 0.012. Urinalysis positive for infection with greater than 182 WBCs. Chest x-ray negative for acute cardiopulmonary process revealing a stable small right pleural effusion EKG revealing normal sinus rhythm at 76 bpm with a left bundle branch block. No previous EKGs available for comparison. Patient diagnosed with UTI and started on IV antibiotic, Rocephin. Patient admitted under our services at this time. Patient seen and physical examination completed at the bedside. He reports feeling very weak and lethargic. He also reports having chronic diarrhea, but states this has been chronic in nature since receiving radiation from his prostate cancer greater than 15 years ago. Patient denies having any increases in or changes in stool consistency or frequency. He denies having any hematuria, hematochezia, or melena. Patient and his family at bedside reports patient has pretty much been lying around and sleeping on the couch for the past 3 weeks. They report him having an 18 pound weight loss that they contribute to his significantly decreased appetite. Patient also reports having chronic back pains lower back done at bedside reports this is why he feels his father is not getting out of bed. Patient denies having any recent fevers, chills, diaphoresis, headache, lightheadedness, dizziness, chest pain, palpitations, shortness of breath, dyspnea with exertion, abdominal pain, nausea, vomiting, or experiencing any pain/numbness/tingling/weakness in his extremities. She reports history of prostate cancer greater than 14 years ago in which she was treated with radiation and went into remission. Patient also reports having a MRI on his pancreas and renal cysts 1 year ago and was informed there were no changes from previous year. 04/26/21: Patient was seen and fully evaluated at the bedside this morning. He reports having pain described as a sharp burning sensation to suprapubic/bladder region. Order placed for bladder scan revealing post void residual greater than 300 mL. Patient started on Flomax 0.4 mg daily and bladder ultrasound completed. Bladder ultrasound revealed a 4.4 cm equally of hypodensity along the bladder suspicious for bladder mass versus prostate enlargement. Patient again having urinary retention and [place] catheter was placed at this time. Order was placed for consult to urology. Patient remains on Rocephin for treatment of Acute cystitis. Patient denies having any other complaints at this time including chills, diaphoresis, headache, lightheadedness, dizziness, chest pain, palpitations, shortness of breath, or dyspnea with exertion. Patient states that he still feels very tired and weak and continues to have no ramon etite. 04/27/21: Patient seen and fully evaluated at bedside this morning. Patient reports acute exacerbation of his chronic pain to right leg not controlled by pain medication administered. Additional orders placed. Patient reports continued mild discomfort to suprapubic region, [place] catheter remains in place with 1650 mL's of urinary output over the past 24 hours. Patient had completed renal CT which revealed bilateral hydronephrosis and hydroureter. Urine culture resulted positive for gram-negative bacilli. He remains on IV antibiotics: Rocephin at this time. Urology following, recommending keeping [place] in place and performing voiding trial in 3 days. 04/28/21: Patient seen and fully evaluated at bedside this morning. He reports increased pain and swelling to bilateral knees throughout the night and morning. Patient reports pain is significantly worse than his normal running pain and he is now having difficulties with movement almost as if "my knees are seized up". Patient denies having any recent falls or injuries. Upon assessment patient with moderate swelling to the anterior surface of bilateral knees consistent to mild to moderate joint effusion, worse on right. Significant tenderness around the patellar joint with point tenderness around medial condyle. No erythema or discoloration noted. Orders placed for pain management and x-ray of bilateral knees. X-ray was completed this morning, results revealing advanced tricompartmental degenerative changes without acute fracture or dislocation in the left or right knees with small to moderate bilateral effusions and tiny osteochondromas of the proximal left tibia. Urine culture positive for Serratia marcescens, Rocephin discontinued secondary to resistance and pt started on Bactrim per sensitivity report. Infectious disease consulted secondary to multi resistant gram-negative bacteria and plans for upcoming ooutpatient cystoscopy to evaluate possible bladder mass. 04/29/21: Patient was seen and fully evaluated this morning. Per nursing staff, patient reportedly had a fall yesterday evening when he attempted to stand up off of the bedside commode unassisted. Patient reportedly denied having any injuries at that time. Upon assessment this morning, patient continued to deny having any injuries or pains and no obvious bruising or injuries noted on physical exam. Pt reports pain to bilateral knees has significantly improved. And upon assessment swelling has significantly decreased. His urine culture was positive for Serratia marcescens and infectious disease was consulted. Infectious disease discontinued Bactrim and started patient on cefepime 2 g every 8 hours with recommendations to discharge patient home on oral Cipro for 10 days. Awaiting PT/OT evaluation. Discussed with patient recommendations for possible rehabilitation placement, patient dating he does not want to go to rehab and family stating no one is available to stay with him secondary to their work. Physical exam: Vital signs reviewed and stable. General: Nontoxic, no distress and appears stated age. Derm: Skin warm and dry, pale. Head: Atraumatic, normocephalic and symmetric. Eyes: no lid lag, and anicteric sclera Mouth: no lip lesions, mucus membranes moist Cardiovascular: regular rate and rhythm with normal S1S2, no murmur, positive posterior tibial pulses bilaterally, and cap refill < 2 seconds. Lungs: Respirations even, regular, and unlabored on room air. Lungs CTA bilaterally, no rhonchi, no rales, no wheezing, and no accessory muscle usage. Abdominal: soft, suprapubic tenderness to palpation, no guarding, no appreciable organomegaly. [place] catheter in place. Ext: ROM intact. No gross muscle atrophy, no edema, no contractures. Mild swelling and tenderness to right knee, left knee swelling resolved completely. Neuro: Speech clear, face symmetrical and CN II-XII grossly intact with no noted focal neuro deficits Psych: Alert and oriented to person, place, time, and situation. Appropriate and pleasant affect. Assessment and Plan of Care: Acute cystitis with urinary frequency, dysuria, hematuria and retention with positive cultures for Serratia marcescens. -Urinalysis positive for infection with greater than 182 WBCs. -Urine culture positive for Serratia marcescens, -Infectious disease consulted secondary to multi resistant gram-negative bacteria and plans for upcoming ooutpatient cystoscopy to evaluate possible bladder mass. -Infectious disease discontinued Bactrim and patient started on cefepime with recommendations to discharge home on oral ciprofloxacin for 10 days. -Bladder scan identified persistent urinary retention, [place] catheter placed. -Bladder ultrasound completed revealing a 4.4 cm equally of hypodensity along the bladder suspicious for bladder mass versus prostate enlargement. -Renal CT which revealed bilateral hydronephrosis and hydroureter. -Continue Flomax 0.4 mg daily -Urology following, recommended continued [place] with plans for TOV in 3 days followed by outpatient cystoscopy to evaluate possible bladder mass. Acute anemia -Possibly secondary to hematuria -We will obtain a fecal occult -H&H every 6 hours Hypomagnesemia Magnesium 1.5, replaced. We will continue to monitor with repeat a.m. labs and replace abnormal electrolyte values as needed. Abnormal imaging with Ultrasound findings suspicious for bladder mass -Bladder ultrasound completed revealing a 4.4 cm equally of hypodensity along the bladder suspicious for bladder mass versus prostate enlargement. -Renal CT which revealed bilateral hydronephrosis and hydroureter. -[place] catheter placed secondary to persistent urinary retention. -Urology following, recommended continued [place] with plans for TOV in 3 days followed by outpatient cystoscopy to evaluate possible bladder mass. Bilateral knee pain, swelling, and stiffness -Likely secondary to arthritis and prolonged time in bed over three-day hospitalization course -X-rays bilateral knees: X-rays revealing advanced tricompartmental degenerative changes without acute fracture or dislocation in the left or right knees with small to moderate bilateral effusions and tiny osteochondromas of the proximal left tibia. -Symptomatic care and pain management, patient being given one dose of Solu- Medrol 125 mg IVP along with PRN NSAIDS -Uric acid to be obtained. 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 Generalized weakness, lethargy, decreased appetite and weight loss -Treatment of underlying infectious process, UTI with Rocephin -Gentle hydration with IV fluids -Consult to nutrition services -PT/OT -CT thoracic and lumbar spine showing moderate to severe spinal stenosis from L3 through S1, no suspicious lesions reported. -Bladder ultrasound completed revealing a 4.4 cm equally of hypodensity along the bladder suspicious for bladder mass versus prostate enlargement. Urology consulted secondary to urinary retention and history of prostate cancer. -Renal CT which revealed bilateral hydronephrosis and hydroureter. -Symptomatic care and assistance as needed -Fall precautions Back pain with history of lumbar fusion -Symptomatic care and pain management -PT/OT consult -CT thoracic and lumbar spine revealing moderate to severe spinal stenosis from L3 through S1 -Fall precautions Upo-[id number]-[id number] diabetes mellitus -Hold Glucophage in place patient on glycemic protocol with NovoLog sliding scale. Hyperlipidemia -Continue daily medication regimen with atorvastatin CODE STATUS: Full code DVT prophylaxis: Heparin Discussed with: Patient and RN Anticipated discharge date: Clinical course to determine Anticipated discharge place: Home A total of 45 minutes was spent on the care of this complex patient more than 50% of the time was spent in counseling and care coordination. Objective - Vital Signs Vital signs: Vital Signs Temp 98.1 F 04/29/21 07:26 Pulse 64 04/29/21 07:26 Resp 18 04/29/21 08:45 BP 122/66 04/29/21 07:26 Pulse Ox 96 04/29/21 08:04 Intake & Output 04/28/21 04/29/21 04/29/21 18:59 06:59 18:59 Output Total 1875 550 Balance -1875 -550 Output: Urine 1875 550 Other: Voiding Method Indwelling Catheter Indwelling Catheter Indwelling Catheter - Labs CBC & Chem 7: 04/29/21 05:53 04/29/21 05:53 Labs: Abnormal Lab Results - Last 24 Hours (Table) 04/28/21 04/28/21 04/29/21 Range/Units 16:53 21:18 05:53 WBC 12.29 H (4.50-10.00) X 10*3/uL RBC 2.69 L (4.40-5.60) X 10*6/uL Hgb 7.8 L (13.0-17.0) g/dL Hct 25.9 L (39.6-50.0) % MCHC 30.1 L (32.0-37.0) g/dL RDW 14.7 H (11.5-14.5) % MPV 8.6 L (9.5-12.2) fL Absolute Nucleated RBC 0.03 H (0.00-0.00) X 10*3/uL NRBC/100 WBC Diff 0.2 H (0.0-0.0) /100 WBCS POC Glucose (mg/dL) 170 H 216 H (75-99) mg/dL 04/29/21 04/29/21 Range/Units 06:53 11:41 WBC (4.50-10.00) X 10*3/uL RBC (4.40-5.60) X 10*6/uL Hgb (13.0-17.0) g/dL Hct (39.6-50.0) % MCHC (32.0-37.0) g/dL RDW (11.5-14.5) % MPV (9.5-12.2) fL Absolute Nucleated RBC (0.00-0.00) X 10*3/uL NRBC/100 WBC Diff (0.0-0.0) /100 WBCS POC Glucose (mg/dL) 148 H 180 H (75-99) mg/dL Microbiology - Last 24 Hours (Table) 04/25/21 16:38 Blood Culture - Preliminary Blood No Growth after 72 hours 04/25/21 16:38 Blood Culture - Preliminary Blood No Growth after 72 hours <Elvira Mcdaniels - Last Filed: 04/29/21 18:42> Subjective Patient seen and examined independently. Patient was also seen by Erik Del Angel NP and case was discussed. I am in agreement with subjective, physical exam, assessment and plan as written above and amended below. He states that he is somewhat better than this morning. Denies any chest pain or shortness of breath. Feeling weak all over. Discussed with him and is articulate and will need to get up and moving that he does not do well he will need to go to rehab. They appear to be in agreement. General: non toxic, no distress, appears at stated age Derm: warm, dry Head: atraumatic, normocephalic, symmetric Eyes: EOMI, no lid lag, anicteric sclera Mouth: no lip lesion, mucus membranes moist Cardiovascular: S1S2 reg, no murmur, positive posterior tibial pulse bilateral, Lungs: Decreased breath sounds bilateral, no rhonchi, no rales , no accessory muscle use Abdominal: soft, nontender to palpation, no guarding, no appreciable organomegaly Ext: no gross muscle atrophy, no edema, no contractures, no effusion and left with bilateral dressings in place over knees. Psych: Alert, oriented, appropriate affect Objective - Vital Signs Vital signs: Vital Signs Temp 98.3 F 04/29/21 13:38 Pulse 80 04/29/21 13:38 Resp 18 04/29/21 13:38 BP 134/70 04/29/21 13:38 Pulse Ox 98 04/29/21 13:38 Intake & Output 04/28/21 04/29/21 04/29/21 18:59 06:59 18:59 Intake Total 200 Output Total 1875 550 Balance -1875 -550 200 Intake: Oral 200 Output: Urine 1875 550 Other: Voiding Method Indwelling Catheter Indwelling Catheter Indwelling Catheter # Voids 2 - Labs CBC & Chem 7: 04/29/21 14:15 04/29/21 05:53 Labs: Abnormal Lab Results - Last 24 Hours (Table) 04/28/21 04/29/21 04/29/21 Range/Units 21:18 05:53 05:53 WBC 12.29 H (4.50-10.00) X 10*3/uL RBC 2.69 L (4.40-5.60) X 10*6/uL Hgb 7.8 L (13.0-17.0) g/dL Hct 25.9 L (39.6-50.0) % MCHC 30.1 L (32.0-37.0) g/dL RDW 14.7 H (11.5-14.5) % MPV 8.6 L (9.5-12.2) fL Absolute Nucleated RBC 0.03 H (0.00-0.00) X 10*3/uL NRBC/100 WBC Diff 0.2 H (0.0-0.0) /100 WBCS Carbon Dioxide 17.5 L (21.6-31.8) mmol/L Glucose 155 H (70-110) mg/dL POC Glucose (mg/dL) 216 H (75-99) mg/dL Calcium 8.2 L (8.7-10.3) mg/dL 04/29/21 04/29/21 04/29/21 Range/Units 06:53 11:41 14:15 WBC 14.4 H (4.50-10.00) X 10*3/uL RBC 2.92 L (4.40-5.60) X 10*6/uL Hgb 8.7 L D (13.0-17.0) g/dL Hct 27.2 L (39.6-50.0) % MCHC (32.0-37.0) g/dL RDW (11.5-14.5) % MPV (9.5-12.2) fL Absolute Nucleated RBC (0.00-0.00) X 10*3/uL NRBC/100 WBC Diff (0.0-0.0) /100 WBCS Carbon Dioxide (21.6-31.8) mmol/L Glucose (70-110) mg/dL POC Glucose (mg/dL) 148 H 180 H (75-99) mg/dL Calcium (8.7-10.3) mg/dL 04/29/21 Range/Units 16:41 WBC (4.50-10.00) X 10*3/uL RBC (4.40-5.60) X 10*6/uL Hgb (13.0-17.0) g/dL Hct (39.6-50.0) % MCHC (32.0-37.0) g/dL RDW (11.5-14.5) % MPV (9.5-12.2) fL Absolute Nucleated RBC (0.00-0.00) X 10*3/uL NRBC/100 WBC Diff (0.0-0.0) /100 WBCS Carbon Dioxide (21.6-31.8) mmol/L Glucose (70-110) mg/dL POC Glucose (mg/dL) 231 H (75-99) mg/dL Calcium (8.7-10.3) mg/dL Microbiology - Last 24 Hours (Table) 04/29/21 11:31 Body Fluid Culture - Preliminary Aspirate 04/25/21 16:38 Blood Culture - Preliminary Blood No Growth after 72 hours 04/25/21 16:38 Blood Culture - Preliminary Blood No Growth after 72 hours
[2021-04-29 13:21] LABS: African American GFR (CKD) 92.4 (60.0-200.0); Anion Gap 10.5 mmol/L (4.00-12.00); BUN/Creat Ratio 17.5 Ratio (12.00-20.00); Calcium 8.2 mg/dL (8.7-10.3); Carbon Dioxide 17.5 mmol/L (21.6-31.8); Magnesium 1.5 mg/dL (1.5-2.4); Non-African American GFR(CKD) 79.8 (60.0-200.0); Potassium 4.4 mmol/L (3.5-5.5); Uric Acid 5.7 mg/dL (3.7-8.7)
[2021-04-29] MEDS: MAGNESIUM SULFATE-D5W PMX 1 GM in DEXTROSE/WATER 1 100ML.BAG IVPB SCH ×3 (14:12→16:31)
[2021-04-29 15:16] LABS: HCT 27.2 % (39.0-53.0); MCH 29.7 pg (25.0-35.0); MCHC 31.9 g/dL (31.0-37.0); MCV 93.1 fL (80.0-100.0); Platelet Count 413 k/uL (150-450); RBC 2.92 m/uL (4.30-5.90); RDW 14.9 % (11.5-15.5); WBC 14.4 k/uL (3.8-10.6)
[2021-04-29 15:29] LABS: HGB 8.7 gm/dL (13.0-17.5)
[2021-04-29 15:38] LABS: Appearance,BF Cloudy; Nucleated Cells, Body Fluid 21600 /uL; RBC, Body Fluid 2920 /uL
[2021-04-29 15:42] LABS: Mononuclear WBC,Body Fluid 23 %; Polynuclear WBC,Body Fluid 77 %; Total Cells Counted,Body Fluid 100
[2021-04-29 15:48] LABS: Appearance,BF Cloudy; Nucleated Cells, Body Fluid 24600 /uL; RBC, Body Fluid 300 /uL
[2021-04-29 15:51] LABS: Mononuclear WBC,Body Fluid 24 %; Polynuclear WBC,Body Fluid 76 %; Total Cells Counted,Body Fluid 100
[2021-04-29 16:43] LABS: Glucose,Whole Blood 231 mg/dL (75-99)
--- NOTE | 2021-04-29 17:32 | PN ---
PROGRESS NOTE DATE OF SERVICE: 04/29/2021 REASON FOR FOLLOWUP: Serratia marcescens complicated urinary tract infection. INTERVAL HISTORY: The patient is afebrile. The patient is feeling better today, breathing comfortably. No chest pain, shortness of breath or cough. No abdominal pain or diarrhea. Still has a [place] catheter, but urine is clearing out. PHYSICAL EXAMINATION: Blood pressure 134/70 with a pulse of 80, temperature 98.3. He is 98% on room air. GENERAL DESCRIPTION: General description is an elderly male lying in bed in no distress. RESPIRATORY SYSTEM: Unlabored breathing. Clear to auscultation anteriorly. HEART: S1, S2. Regular rate and rhythm. ABDOMEN: Soft. No tenderness. LABS: Hemoglobin is 7.2, white of 12.29, BUN of 14, creatinine 0.8. DIAGNOSTIC IMPRESSION AND PLAN: Patient with Serratia marcescens urinary tract infection, complicated. Blood culture negative. On cefepime. White count is slightly up today. Continue to monitor closely and continue with supportive care. MMODL / IJN: [id number] /
[2021-04-29 20:47] LABS: HCT 25.3 % (39.0-53.0); HGB 8.3 gm/dL (13.0-17.5); MCH 30.2 pg (25.0-35.0); MCHC 32.8 g/dL (31.0-37.0); MCV 92.1 fL (80.0-100.0); Mean Platelet Volume 6.5; Platelet Count 430 k/uL (150-450); RBC 2.75 m/uL (4.30-5.90); RDW 14.7 % (11.5-15.5); WBC 13.1 k/uL (3.8-10.6)
[2021-04-29 20:57] LABS: Glucose,Whole Blood 272 mg/dL (75-99)
[2021-04-30 03:28] LABS: HCT 26.2 % (39.0-53.0); HGB 8.3 gm/dL (13.0-17.5); MCH 29.2 pg (25.0-35.0); MCHC 31.7 g/dL (31.0-37.0); MCV 92.2 fL (80.0-100.0); Mean Platelet Volume 6.7; Platelet Count 464 k/uL (150-450); RBC 2.84 m/uL (4.30-5.90); RDW 14.8 % (11.5-15.5); WBC 12.8 k/uL (3.8-10.6)
[2021-04-30 07:02] LABS: Glucose,Whole Blood 205 mg/dL (75-99)
[2021-04-30] MEDS: CEFEPIME 2 GM in SODIUM CHLORIDE 0.9% 100 ML IVPB SCH ×2 (07:40→17:12)
[2021-04-30] MEDS: INSULIN ASPART (NovoLOG) 100 UNIT/ML VIAL SQ SCH ×4 (07:40→21:21)
[2021-04-30] MEDS: HEPARIN SODIUM,PORCINE/PF 5,000 UNIT/0.5 ML SYRINGE SQ SCH ×2 (07:40→21:22)
[2021-04-30] MEDS: TAMSULOSIN 0.4 MG CAP.ER.24H PO SCH (07:41)
[2021-04-30] MEDS: ATORVASTATIN 20 MG TAB PO SCH (07:41)
[2021-04-30] MEDS: FLUoxetine HCL 20 MG CAP PO SCH (07:41)
[2021-04-30] MEDS: CHOLECALCIFEROL 25 MCG (1000 IU) TABLET PO SCH (07:41)
--- NOTE | 2021-04-30 10:49 | P.PN ---
<Erik Del Angel - Last Filed: 04/30/21 10:38> Subjective Progress Note Date: 04/30/21 Hospital course: Patient is a very pleasant 86-year-old male with a past medical history of pro state cancer, diabetes mellitus, hypertension, hyperlipidemia, and osteoarthritis. He presented to the emergency department with a chief complaint of progressive weakness with reports of loss of appetite, 18 pound weight loss, urinary frequency and dysuria. Patient reports these symptoms began one month ago and have progressively worsened. Patient was seen and fully evaluated in the emergency department. CBC was completed showing no significant abnormalities with the exception of mild normocytic normochromic anemia with hemoglobin of 11.5 and thrombocytosis with platelet count of 497. BMP revealed mild hyponatremia with sodium of 133 and acute kidney injury with BUN of 45, creatinine 1.57, and GFR of 39 1.57 with baseline creatinine of 1.3. Hyperglycemia with glucose of 164, and lactic acidosis with lactate of 2.6. Troponin negative at less than 0.012. Urinalysis positive for infection with greater than 182 WBCs. Chest x-ray negative for acute cardiopulmonary process revealing a stable small right pleural effusion EKG revealing normal sinus rhythm at 76 bpm with a left bundle branch block. No previous EKGs available for comparison. Patient diagnosed with UTI and started on IV antibiotic, Rocephin. Patient admitted under our services at this time. Patient seen and physical examination completed at the bedside. He reports feeling very weak and lethargic. He also reports having chronic diarrhea, but states this has been chronic in nature since receiving radiation from his prostate cancer greater than 15 years ago. Patient denies having any increases in or changes in stool consistency or frequency. He denies having any hematuria, hematochezia, or melena. Patient and his family at bedside reports patient has pretty much been lying around and sleeping on the couch for the past 3 weeks. They report him having an 18 pound weight loss that they contribute to his significantly decreased appetite. Patient also reports having chronic back pains lower back done at bedside reports this is why he feels his father is not getting out of bed. Patient denies having any recent fevers, chills, diaphoresis, headache, lightheadedness, dizziness, chest pain, palpitations, shortness of breath, dyspnea with exertion, abdominal pain, nausea, vomiting, or experiencing any pain/numbness/tingling/weakness in his extremities. She reports history of prostate cancer greater than 14 years ago in which she was treated with radiation and went into remission. Patient also reports having a MRI on his pancreas and renal cysts 1 year ago and was informed there were no changes from previous year. 04/26/21: Patient was seen and fully evaluated at the bedside this morning. He reports having pain described as a sharp burning sensation to suprapubic/bladder region. Order placed for bladder scan revealing post void residual greater than 300 mL. Patient started on Flomax 0.4 mg daily and bladder ultrasound completed. Bladder ultrasound revealed a 4.4 cm equally of hypodensity along the bladder suspicious for bladder mass versus prostate enlargement. Patient again having urinary retention and Castellanos catheter was placed at this time. Order was placed for consult to urology. Patient remains on Rocephin for treatment of Acute cystitis. Patient denies having any other complaints at this time including chills, diaphoresis, headache, lightheadedness, dizziness, chest pain, palpitations, shortness of breath, or dyspnea with exertion. Patient states that he still feels very tired and weak and continues to have no charity etite. 04/27/21: Patient seen and fully evaluated at bedside this morning. Patient reports acute exacerbation of his chronic pain to right leg not controlled by pain medication administered. Additional orders placed. Patient reports continued mild discomfort to suprapubic region, Castellanos catheter remains in place with 1650 mL's of urinary output over the past 24 hours. Patient had completed renal CT which revealed bilateral hydronephrosis and hydroureter. Urine culture resulted positive for gram-negative bacilli. He remains on IV antibiotics: Rocephin at this time. Urology following, recommending keeping Castellanos in place and performing voiding trial in 3 days. 04/28/21: Patient seen and fully evaluated at bedside this morning. He reports increased pain and swelling to bilateral knees throughout the night and morning. Patient reports pain is significantly worse than his normal running pain and he is now having difficulties with movement almost as if "my knees are seized up". Patient denies having any recent falls or injuries. Upon assessment patient with moderate swelling to the anterior surface of bilateral knees consistent to mild to moderate joint effusion, worse on right. Significant tenderness around the patellar joint with point tenderness around medial condyle. No erythema or discoloration noted. Orders placed for pain management and x-ray of bilateral knees. X-ray was completed this morning, results revealing advanced tricompartmental degenerative changes without acute fracture or dislocation in the left or right knees with small to moderate bilateral effusions and tiny osteochondromas of the proximal left tibia. Urine culture positive for Serratia marcescens, Rocephin discontinued secondary to resistance and pt started on Bactrim per sensitivity report. Infectious disease consulted secondary to multi resistant gram-negative bacteria and plans for upcoming ooutpatient cystoscopy to evaluate possible bladder mass. 04/29/21: Patient was seen and fully evaluated this morning. Per nursing staff, patient reportedly had a fall yesterday evening when he attempted to stand up off of the bedside commode unassisted. Patient reportedly denied having any injuries at that time. Upon assessment this morning, patient continued to deny having any injuries or pains and no obvious bruising or injuries noted on physical exam. Pt reports pain to bilateral knees has significantly improved. And upon assessment swelling has significantly decreased. His urine culture was positive for Serratia marcescens and infectious disease was consulted. Infectious disease discontinued Bactrim and started patient on cefepime 2 g every 8 hours with recommendations to discharge patient home on oral Cipro for 10 days. Awaiting PT/OT evaluation. Discussed with patient recommendations for possible rehabilitation placement, patient dating he does not want to go to rehab and family stating no one is available to stay with him secondary to their work. 04/30/21: Patient seen and fully evaluated at bedside this morning. Patient reports that he had a "rough night.". Patient reports persistent pain in his knees. He underwent bilateral knee aspirations and injections with Depo-Medrol yesterday. Joint aspiration was sent to lab for analysis. Again discussed plan of care with patient and patient is agreeable that he will need placement for physical therapy. Patient currently unable to stand without 2 person assist. Patient to work with PT/OT today and case management notified for needed placement in making arrangements at this time. Patient denies having any chest pain, palpitations, shortness of breath, or experiencing any numbness/tingling in his extremities. Castellanos being removed today as recommended by urology and voiding trial being completed. Physical exam: Vital signs reviewed and stable. General: Nontoxic, no distress and appears stated age. Derm: Skin warm and dry, pale. Head: Atraumatic, normocephalic and symmetric. Eyes: no lid lag, and anicteric sclera Mouth: no lip lesions, mucus membranes moist Cardiovascular: regular rate and rhythm with normal S1S2, no murmur, positive posterior tibial pulses bilaterally, and cap refill < 2 seconds. Lungs: Respirations even, regular, and unlabored on room air. Lungs CTA bilaterally, no rhonchi, no rales, no wheezing, and no accessory muscle usage. Abdominal: soft, suprapubic tenderness to palpation, no guarding, no appreciable organomegaly. Castellanos catheter in place. Ext: ROM intact. No gross muscle atrophy, no edema, no contractures. Mild swe lling and tenderness to right knee, left knee swelling resolved completely and slight tenderness remains. Neuro: Speech clear, face symmetrical and CN II-XII grossly intact with no noted focal neuro deficits Psych: Alert and oriented to person, place, time, and situation. Appropriate and pleasant affect. Assessment and Plan of Care: Acute cystitis with urinary frequency, dysuria, hematuria and retention with positive cultures for Serratia marcescens. -Urine culture positive for Serratia marcescens, -Infectious disease consulted secondary to multi resistant gram-negative bacteria and plans for upcoming ooutpatient cystoscopy to evaluate possible bladder mass. -Infectious disease discontinued Bactrim and patient started on cefepime with recommendations to discharge home on oral ciprofloxacin for 10 days. -Bladder scan identified persistent urinary retention, Castellanos catheter placed. -Bladder ultrasound completed revealing a 4.4 cm equally of hypodensity along the bladder suspicious for bladder mass versus prostate enlargement. -Renal CT which revealed bilateral hydronephrosis and hydroureter. -Continue Flomax 0.4 mg daily -Urology following, recommended removal of Castellanos and voiding trial today foll owed by outpatient cystoscopy to evaluate possible bladder mass. Acute anemia -Possibly secondary to hematuria -We will obtain a fecal occult -H&H every 6 hours Hypomagnesemia Magnesium 1.5, replaced. We will continue to monitor with repeat a.m. labs and replace abnormal electrolyte values as needed. Abnormal imaging with Ultrasound findings suspicious for bladder mass -Bladder ultrasound completed revealing a 4.4 cm equally of hypodensity along the bladder suspicious for bladder mass versus prostate enlargement. -Renal CT which revealed bilateral hydronephrosis and hydroureter. -Castellanos catheter placed secondary to persistent urinary retention. -Urology following, recommend outpatient cystoscopy to evaluate possible bladder mass. Bilateral knee pain, swelling, and stiffness -Likely secondary to arthritis and prolonged time in bed over three-day hospitalization course -X-rays bilateral knees: X-rays revealing advanced tricompartmental degenerative changes without acute fracture or dislocation in the left or right knees with small to moderate bilateral effusions and tiny osteochondromas of the proximal left tibia. -Symptomatic care and pain management, patient being given one dose of Solu- Medrol 125 mg IVP along with PRN NSAIDS -Encourage patient to get up to chair with meals -Consult property specialist -Continue PT/OT -Continue fall precautions. Generalized weakness, lethargy, decreased appetite and weight loss -Treatment of underlying infectious process, UTI with Rocephin -Gentle hydration with IV fluids -Consult to nutrition services -PT/OT -CT thoracic and lumbar spine showing moderate to severe spinal stenosis from L3 through S1, no suspicious lesions reported. -Bladder ultrasound completed revealing a 4.4 cm equally of hypodensity along the bladder suspicious for bladder mass versus prostate enlargement. Urology consulted secondary to urinary retention and history of prostate cancer. -Renal CT which revealed bilateral hydronephrosis and hydroureter. -Symptomatic care and assistance as needed -Fall precautions Back pain with history of lumbar fusion -Symptomatic care and pain management -PT/OT consult -CT thoracic and lumbar spine revealing moderate to severe spinal stenosis from L3 through S1 -Fall precautions [id number] diabetes mellitus -Hold Glucophage in place patient on glycemic protocol with NovoLog sliding scale. Hyperlipidemia -Continue daily medication regimen with atorvastatin CODE STATUS: Full code DVT prophylaxis: Heparin Discussed with: Patient and RN Anticipated discharge date: Clinical course to determine Anticipated discharge place: Home A total of 45 minutes was spent on the care of this complex patient more than 50% of the time was spent in counseling and care coordination. Objective - Vital Signs Vital signs: Vital Signs Temp 97.6 F 04/30/21 07:48 Pulse 81 04/30/21 07:48 Resp 16 04/30/21 07:48 BP 127/75 04/30/21 07:48 Pulse Ox 98 04/30/21 07:48 Intake & Output 04/29/21 04/30/21 04/30/21 18:59 06:59 18:59 Intake Total 200 Output Total 500 Balance 200 -500 Intake: Oral 200 Output: Urine 500 Other: Voiding Method Indwelling Catheter Indwelling Catheter # Voids 2 - Labs CBC & Chem 7: 04/30/21 02:48 04/29/21 05:53 Labs: Abnormal Lab Results - Last 24 Hours (Table) 04/29/21 04/29/21 04/29/21 Range/Units 05:53 05:53 11:31 WBC 12.29 H (4.50-10.00) X 10*3/uL RBC 2.69 L (4.40-5.60) X 10*6/uL Hgb 7.8 L (13.0-17.0) g/dL Hct 25.9 L (39.6-50.0) % MCHC 30.1 L (32.0-37.0) g/dL RDW 14.7 H (11.5-14.5) % Plt Count (150-450) k/uL MPV 8.6 L (9.5-12.2) fL Absolute Nucleated RBC 0.03 H (0.00-0.00) X 10*3/uL NRBC/100 WBC Diff 0.2 H (0.0-0.0) /100 WBCS Carbon Dioxide 17.5 L (21.6-31.8) mmol/L Glucose 155 H (70-110) mg/dL POC Glucose (mg/dL) (75-99) mg/dL Calcium 8.2 L (8.7-10.3) mg/dL Synovial Crystals Seen A (None Seen) 04/29/21 04/29/21 04/29/21 Range/Units 11:31 11:41 14:15 WBC 14.4 H (4.50-10.00) X 10*3/uL RBC 2.92 L (4.40-5.60) X 10*6/uL Hgb 8.7 L D (13.0-17.0) g/dL Hct 27.2 L (39.6-50.0) % MCHC (32.0-37.0) g/dL RDW (11.5-14.5) % Plt Count (150-450) k/uL MPV (9.5-12.2) fL Absolute Nucleated RBC (0.00-0.00) X 10*3/uL NRBC/100 WBC Diff (0.0-0.0) /100 WBCS Carbon Dioxide (21.6-31.8) mmol/L Glucose (70-110) mg/dL POC Glucose (mg/dL) 180 H (75-99) mg/dL Calcium (8.7-10.3) mg/dL Synovial Crystals Seen A (None Seen) 04/29/21 04/29/21 04/29/21 Range/Units 16:41 20:17 20:56 WBC 13.1 H (4.50-10.00) X 10*3/uL RBC 2.75 L (4.40-5.60) X 10*6/uL Hgb 8.3 L (13.0-17.0) g/dL Hct 25.3 L (39.6-50.0) % MCHC (32.0-37.0) g/dL RDW (11.5-14.5) % Plt Count (150-450) k/uL MPV (9.5-12.2) fL Absolute Nucleated RBC (0.00-0.00) X 10*3/uL NRBC/100 WBC Diff (0.0-0.0) /100 WBCS Carbon Dioxide (21.6-31.8) mmol/L Glucose (70-110) mg/dL POC Glucose (mg/dL) 231 H 272 H (75-99) mg/dL Calcium (8.7-10.3) mg/dL Synovial Crystals (None Seen) 04/30/21 04/30/21 Range/Units 02:48 06:57 WBC 12.8 H (4.50-10.00) X 10*3/uL RBC 2.84 L (4.40-5.60) X 10*6/uL Hgb 8.3 L (13.0-17.0) g/dL Hct 26.2 L (39.6-50.0) % MCHC (32.0-37.0) g/dL RDW (11.5-14.5) % Plt Count 464 H (150-450) k/uL MPV (9.5-12.2) fL Absolute Nucleated RBC (0.00-0.00) X 10*3/uL NRBC/100 WBC Diff (0.0-0.0) /100 WBCS Carbon Dioxide (21.6-31.8) mmol/L Glucose (70-110) mg/dL POC Glucose (mg/dL) 205 H (75-99) mg/dL Calcium (8.7-10.3) mg/dL Synovial Crystals (None Seen) Microbiology - Last 24 Hours (Table) 04/25/21 16:38 Blood Culture - Preliminary Blood No Growth after 96 hours 04/25/21 16:38 Blood Culture - Preliminary Blood No Growth after 96 hours 04/29/21 11:31 Body Fluid Culture - Preliminary Aspirate <Xavi Rasconja - Last Filed: 04/30/21 16:01> Objective - Vital Signs Vital signs: Vital Signs Temp 97.4 F L 04/30/21 14:00 Pulse 80 04/30/21 14:00 Resp 16 04/30/21 14:00 BP 120/68 04/30/21 14:00 Pulse Ox 98 04/30/21 14:00 Intake & Output 04/29/21 04/30/21 04/30/21 18:59 06:59 18:59 Intake Total 200 Output Total 500 Balance 200 -500 Weight 62.596 kg Intake: Oral 200 Output: Urine 500 Other: Voiding Method Indwelling Catheter Indwelling Catheter Indwelling Catheter # Voids 2 - Labs CBC & Chem 7: 04/30/21 02:48 04/29/21 05:53 Labs: Abnormal Lab Results - Last 24 Hours (Table) 04/29/21 04/29/21 04/29/21 Range/Units 11:31 11:31 16:41 WBC (3.8-10.6) k/uL RBC (4.30-5.90) m/uL Hgb (13.0-17.5) gm/dL Hct (39.0-53.0) % Plt Count (150-450) k/uL POC Glucose (mg/dL) 231 H (75-99) mg/dL Magnesium (1.6-2.3) mg/dL Synovial Crystals Seen A Seen A (None Seen) 04/29/21 04/29/21 04/30/21 Range/Units 20:17 20:56 02:48 WBC 13.1 H 12.8 H (3.8-10.6) k/uL RBC 2.75 L 2.84 L (4.30-5.90) m/uL Hgb 8.3 L 8.3 L (13.0-17.5) gm/dL Hct 25.3 L 26.2 L (39.0-53.0) % Plt Count 464 H (150-450) k/uL POC Glucose (mg/dL) 272 H (75-99) mg/dL Magnesium (1.6-2.3) mg/dL Synovial Crystals (None Seen) 04/30/21 04/30/21 04/30/21 Range/Units 02:48 06:57 11:25 WBC (3.8-10.6) k/uL RBC (4.30-5.90) m/uL Hgb (13.0-17.5) gm/dL Hct (39.0-53.0) % Plt Count (150-450) k/uL POC Glucose (mg/dL) 205 H 226 H (75-99) mg/dL Magnesium 2.4 H (1.6-2.3) mg/dL Synovial Crystals (None Seen) Microbiology - Last 24 Hours (Table) 04/29/21 11:31 Gram Stain - Preliminary Aspirate Body Fluid Culture - Preliminary 04/25/21 16:38 Blood Culture - Preliminary Blood No Growth after 96 hours 04/25/21 16:38 Blood Culture - Preliminary Blood No Growth after 96 hours Assessment and Plan Assessment: Patient seen and evaluated by me independently. Patient was also seen by CHARITY, the original author of this note. I am in agreement with the subjective, physical exam, and assessment and plan as documented with the addition/changes of my exam and assessment below. Gen: awake, alert HEENT: normocephalic, atraumatic, good hearing acuity, moist mucous membranes Resp: good air exchange, breathing comfortably with no accessory muscle use CVS: good distal perfusion x 4, GI: soft, NTTP, ND : no SPT, no CVAT, castellanos catheter not present MSK: no pitting edema, no clubbing Neuro: non-focal, moving all extremities Psych: cooperative, euthymic mood Plan: Vascular surgery consultation ID consultation Likely need for debridement Ongoing IV antibiotics
[2021-04-30 11:27] LABS: Glucose,Whole Blood 226 mg/dL (75-99)
--- NOTE | 2021-04-30 11:27 | P.PN ---
Subjective Progress Note Date: 04/30/21 Principal diagnosis: Bilateral knee pain. This is an 86-year-old male who is admitted with some mental status changes and UTI. He has been having difficulty with ambulation secondary to bilateral knee pain. Orthopedics is consulted for evaluation of his knees. He had bilateral knee aspiration and injection with cortisone yesterday. He states that his knee pain is improved. The knee fluid was sent for cell count and crystal identification. Cell count is normal. 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 Objective - Vital Signs Vital signs: Vital Signs Temp 97.6 F 04/30/21 07:48 Pulse 81 04/30/21 07:48 Resp 16 04/30/21 07:48 BP 127/75 04/30/21 07:48 Pulse Ox 98 04/30/21 07:48 Intake & Output 04/29/21 04/30/21 04/30/21 18:59 06:59 18:59 Intake Total 200 Output Total 500 Balance 200 -500 Intake: Oral 200 Output: Urine 500 Other: Voiding Method Indwelling Catheter Indwelling Catheter Indwelling Catheter # Voids 2 - Exam This is a pleasant 86-year-old gentleman in no acute distress. Exam of the knees reveals less swelling today. No erythema. He has slightly improved range of motion in bed. Full foot and ankle motion without difficulty or pain. Neurovascular status to the lower extremity is intact. - Labs CBC & Chem 7: 04/30/21 02:48 04/29/21 05:53 Labs: Abnormal Lab Results - Last 24 Hours (Table) 04/29/21 04/29/21 04/29/21 Range/Units 05:53 11:31 11:31 WBC (3.8-10.6) k/uL RBC (4.30-5.90) m/uL Hgb (13.0-17.5) gm/dL Hct (39.0-53.0) % Plt Count (150-450) k/uL Carbon Dioxide 17.5 L (21.6-31.8) mmol/L Glucose 155 H (70-110) mg/dL POC Glucose (mg/dL) (75-99) mg/dL Calcium 8.2 L (8.7-10.3) mg/dL Magnesium (1.6-2.3) mg/dL Synovial Crystals Seen A Seen A (None Seen) 04/29/21 04/29/21 04/29/21 Range/Units 11:41 14:15 16:41 WBC 14.4 H (3.8-10.6) k/uL RBC 2.92 L (4.30-5.90) m/uL Hgb 8.7 L D (13.0-17.5) gm/dL Hct 27.2 L (39.0-53.0) % Plt Count (150-450) k/uL Carbon Dioxide (21.6-31.8) mmol/L Glucose (70-110) mg/dL POC Glucose (mg/dL) 180 H 231 H (75-99) mg/dL Calcium (8.7-10.3) mg/dL Magnesium (1.6-2.3) mg/dL Synovial Crystals (None Seen) 04/29/21 04/29/21 04/30/21 Range/Units 20:17 20:56 02:48 WBC 13.1 H 12.8 H (3.8-10.6) k/uL RBC 2.75 L 2.84 L (4.30-5.90) m/uL Hgb 8.3 L 8.3 L (13.0-17.5) gm/dL Hct 25.3 L 26.2 L (39.0-53.0) % Plt Count 464 H (150-450) k/uL Carbon Dioxide (21.6-31.8) mmol/L Glucose (70-110) mg/dL POC Glucose (mg/dL) 272 H (75-99) mg/dL Calcium (8.7-10.3) mg/dL Magnesium (1.6-2.3) mg/dL Synovial Crystals (None Seen) 04/30/21 04/30/21 Range/Units 02:48 06:57 WBC (3.8-10.6) k/uL RBC (4.30-5.90) m/uL Hgb (13.0-17.5) gm/dL Hct (39.0-53.0) % Plt Count (150-450) k/uL Carbon Dioxide (21.6-31.8) mmol/L Glucose (70-110) mg/dL POC Glucose (mg/dL) 205 H (75-99) mg/dL Calcium (8.7-10.3) mg/dL Magnesium 2.4 H (1.6-2.3) mg/dL Synovial Crystals (None Seen) Microbiology - Last 24 Hours (Table) 04/29/21 11:31 Gram Stain - Preliminary Aspirate Body Fluid Culture - Preliminary 04/25/21 16:38 Blood Culture - Preliminary Blood No Growth after 96 hours 04/25/21 16:38 Blood Culture - Preliminary Blood No Growth after 96 hours Assessment and Plan (1) Bilateral primary osteoarthritis of knee Current Visit: Yes Status: Acute Code(s): M17.0 - BILATERAL PRIMARY OSTEOARTHRITIS OF KNEE SNOMED Code(s): 080839311 (2) Generalized weakness Current Visit: Yes Status: Acute Code(s): R53.1 - WEAKNESS SNOMED Code(s): 16903329 (3) Urinary tract infection Current Visit: Yes Status: Acute Code(s): N39.0 - URINARY TRACT INFECTION, SITE NOT SPECIFIED SNOMED Code(s): 57297682 Plan: Clinical and x-ray findings are discussed the patient with his knee pain. He may follow up with her office as needed. and nursing staff. The cortisone injections should help. He may follow up with our office as needed.
--- NOTE | 2021-04-30 13:26 | PN ---
PROGRESS NOTE DATE OF SERVICE: 04/30/2021 REASON FOR FOLLOWUP: Serratia marcescens complicated urinary intact infection. INTERVAL HISTORY: The patient is afebrile. The patient is currently feeling better, breathing comfortably. [place] catheter has been discontinued. No chest pain, shortness of breath or cough. No abdominal pain or diarrhea. PHYSICAL EXAMINATION: Blood pressure 127/75 with a pulse of 81, temperature 97.6. He is 98% on room air. GENERAL DESCRIPTION: General description is an elderly male lying in bed in no distress. RESPIRATORY SYSTEM: Unlabored breathing. Clear to auscultation anteriorly. HEART: S1, S2. Regular rate and rhythm. ABDOMEN: Soft. No tenderness. EXTREMITIES: No edema of the feet. LABS: Hemoglobin is 8.8, white count 12.8. Blood culture has been negative. DIAGNOSTIC IMPRESSION AND PLAN: Patient with Serratia marcescens complicated urinary tract infection, on cefepime. Transition to oral Cipro on discharge for another 10 days to 2 weeks and close outpatient followup. MMODL / IJN: [id number] /
--- NOTE | 2021-04-30 14:50 | P.CONS ---
History of Present Illness - Chief Complaint Medical debility - History of Present Illness I had the opportunity to see patient for inpatient rehab consultation with regard to medical debility. Patient admitted to [facility] April 25 with weakness and weight loss, orthostasis, UTI and chronic diarrhea perhaps 1 month duration. Seen by Dr. Sarmiento for urinary retention and bladder mass and placed indwelling catheter. Seen by Dr. Figueroa for the UTI. A chest x-ray demonstrated stable right pleural effusion. CT of thoracic and lumbar spine demonstrated severe stenosis L3-S1. Bladder ultrasound with 4.[address] with bilateral hydronephrosis and the DDD. The x-rays with advanced arthritis. His started therapies. PT reports minimal assistance functional mobility and gait 132 feet roller walker, total. OT reports supervision for upper dressing toileting and functional mobility and minimal assistance for lower dressing and bathing. Previous functional history as elicited patient: 86-year-old right-handed white male who is lives and 2 floor home alone. Retired. Describes independent with own cooking, laundry, driving, standing shower and gait with [address] Rivera. Denies tobacco or alcohol. Review of Systems Review of systems: Patient doesn't recall reason for admission or current problems. ENT: Denies sneezes or discharge. Eyes: Denies discharge or photophobia. Cardiac: Denies chest pain or palpitation. Pulmonary: Denies cough or shortness of breath. Gastrointestinal: Denies nausea, emesis, constipation, diarrhea. Genitourinary: Denies discharge or frequency. Musculoskeletal: Denies muscle or bone aches. Neurologic: Denies motor or sensory change. Endocrine: Denies shakes or sweats. Oncology: Denies cancers. Dermatologic: Denies rash, itching, pruritus. ALLERGY/immunology: Denies sneezes, rashes. Past Medical History Past Medical History: Cancer, Diabetes Mellitus, Hyperlipidemia, Hypertension, Osteoarthritis (OA) Additional Past Medical History / Comment(s): prostate CA, History of Any Multi-Drug Resistant Organisms: None Reported Additional Past Surgical History / Comment(s): lamenectomy Past Psychological History: Depression Smoking Status: Never smoker Past Alcohol Use History: None Reported Past Drug Use History: None Reported Medications and Allergies Home Medications Medication Instructions Recorded Confirmed Type Acetaminophen Tab [Tylenol] 650 mg PO Q4H PRN 04/25/21 04/25/21 History Albuterol Inhaler [Ventolin Hfa 2 puff INHALATION RT-QID PRN 04/25/21 04/25/21 History Inhaler] Atorvastatin [Lipitor] 20 mg PO DAILY 04/25/21 04/25/21 History Cholecalciferol [Vitamin D3 (25 50 mcg PO DAILY 04/25/21 04/25/21 History Mcg = 1000 Iu)] FLUoxetine HCL [PROzac] 20 mg PO DAILY 04/25/21 04/25/21 History Loratadine 10 mg PO DAILY 04/25/21 04/25/21 History metFORMIN HCL [Glucophage] 500 mg PO BID 04/25/21 04/25/21 History Allergies Allergy/AdvReac Type Severity Reaction Status Date / Time No Known Allergies Allergy Verified 04/25/21 17:56 Physical Exam Vitals: Vital Signs Temp Pulse Resp BP BP BP Pulse Ox 04/30/21 14:00 97.4 F L 80 16 120/68 98 04/30/21 07:48 97.6 F 81 16 127/75 98 04/30/21 07:41 81 16 04/30/21 02:39 98.1 F 62 17 116/67 96 04/29/21 20:10 98.0 F 77 16 111/64 94 L Intake and Output 04/29/21 04/30/21 04/30/21 22:59 06:59 14:59 Intake Total 200 Output Total 500 Balance 200 -500 Intake: Oral 200 Output: Urine 500 Other: Voiding Method Indwelling Catheter Indwelling Catheter # Voids 2 Weight 62.596 kg Skin: Atrophic, intact. General: Alek build and comfortable appearance. Head: Normocephalic, atraumatic. Eyes: Symmetric. Pupils equal round. Ears: Symmetric. Hearing within normal limits. Mouth: Clear. Neck: Supple. Carotid without bruit. Cardiac: Regular rate and rhythm. Lungs: Clear anteriorly and posteriorly. Abdomen: Soft active nontender. Extremities: Normal tone. Neurological: Mental status: Alert, cooperative, pleasant. Cranial nerves: Symmetric facial tone and trapezius. Motor: Active movement all 4 limbs but legs best antigravity. Sensation: Intact throughout. DTRs: Symmetric and equal throughout. Mobility: Reports assistance for mobility in room. Results CBC & Chem 7: 04/30/21 02:48 04/29/21 05:53 Labs: Abnormal Lab Results - Last 24 Hours (Table) 04/29/21 04/29/21 04/29/21 Range/Units 11:31 11:31 14:15 WBC 14.4 H (3.8-10.6) k/uL RBC 2.92 L (4.30-5.90) m/uL Hgb 8.7 L D (13.0-17.5) gm/dL Hct 27.2 L (39.0-53.0) % Plt Count (150-450) k/uL POC Glucose (mg/dL) (75-99) mg/dL Magnesium (1.6-2.3) mg/dL Synovial Crystals Seen A Seen A (None Seen) 04/29/21 04/29/21 04/29/21 Range/Units 16:41 20:17 20:56 WBC 13.1 H (3.8-10.6) k/uL RBC 2.75 L (4.30-5.90) m/uL Hgb 8.3 L (13.0-17.5) gm/dL Hct 25.3 L (39.0-53.0) % Plt Count (150-450) k/uL POC Glucose (mg/dL) 231 H 272 H (75-99) mg/dL Magnesium (1.6-2.3) mg/dL Synovial Crystals (None Seen) 04/30/21 04/30/21 04/30/21 Range/Units 02:48 02:48 06:57 WBC 12.8 H (3.8-10.6) k/uL RBC 2.84 L (4.30-5.90) m/uL Hgb 8.3 L (13.0-17.5) gm/dL Hct 26.2 L (39.0-53.0) % Plt Count 464 H (150-450) k/uL POC Glucose (mg/dL) 205 H (75-99) mg/dL Magnesium 2.4 H (1.6-2.3) mg/dL Synovial Crystals (None Seen) 04/30/21 Range/Units 11:25 WBC (3.8-10.6) k/uL RBC (4.30-5.90) m/uL Hgb (13.0-17.5) gm/dL Hct (39.0-53.0) % Plt Count (150-450) k/uL POC Glucose (mg/dL) 226 H (75-99) mg/dL Magnesium (1.6-2.3) mg/dL Synovial Crystals (None Seen) Microbiology - Last 24 Hours (Table) 04/29/21 11:31 Gram Stain - Preliminary Aspirate Body Fluid Culture - Preliminary 04/25/21 16:38 Blood Culture - Preliminary Blood No Growth after 96 hours 04/25/21 16:38 Blood Culture - Preliminary Blood No Growth after 96 hours Assessment and Plan (1) Bilateral primary osteoarthritis of knee Current Visit: Yes Status: Acute Code(s): M17.0 - BILATERAL PRIMARY OSTEOARTHRITIS OF KNEE SNOMED Code(s): 338824304 (2) Generalized weakness Current Visit: Yes Status: Acute Code(s): R53.1 - WEAKNESS SNOMED Code(s): 98568184 (3) Orthostatic hypotension Current Visit: Yes Status: Acute Code(s): I95.1 - ORTHOSTATIC HYPOTENSION SNOMED Code(s): 45483495 (4) Urinary tract infection Current Visit: Yes Status: Acute Code(s): N39.0 - URINARY TRACT INFECTION, SITE NOT SPECIFIED SNOMED Code(s): 24308316 Plan: Impression: 1. Medical debility with UTI with complication orthostasis, diarrhea. 2. Bladder mass and urinary retention. 3. Lumbar DDD and stenosis. 4. Polyarthritis especially including knees. 5. Hypertension. 6. Dyslipidemia. 7. Diabetes. Conference and plan: At this time PT and OT are documenting safety concerns. Have discussed possible inpatient rehab with patient. Patient reports support for home with daughter and [id number].
[2021-04-30 16:46] LABS: Glucose,Whole Blood 196 mg/dL (75-99)
[2021-04-30 20:44] LABS: Glucose,Whole Blood 232 mg/dL (75-99)
[2021-04-30] MEDS: HYDROcodone/APAP 5-325MG 1 EACH TAB PO PRN (21:34)
[2021-05-01] MEDS: CEFEPIME 2 GM in SODIUM CHLORIDE 0.9% 100 ML IVPB SCH ×2 (01:36→07:59)
[2021-05-01 07:08] LABS: Glucose,Whole Blood 179 mg/dL (75-99)
[2021-05-01] MEDS: CHOLECALCIFEROL 25 MCG (1000 IU) TABLET PO SCH (07:58)
[2021-05-01] MEDS: HEPARIN SODIUM,PORCINE/PF 5,000 UNIT/0.5 ML SYRINGE SQ SCH (07:58)
[2021-05-01] MEDS: ATORVASTATIN 20 MG TAB PO SCH (07:58)
[2021-05-01] MEDS: INSULIN ASPART (NovoLOG) 100 UNIT/ML VIAL SQ SCH ×3 (07:59→16:56)
[2021-05-01] MEDS: TAMSULOSIN 0.4 MG CAP.ER.24H PO SCH (07:59)
[2021-05-01] MEDS: FLUoxetine HCL 20 MG CAP PO SCH (07:59)
[2021-05-01 08:07] VITALS: RESP 16
[2021-05-01 09:31] LABS: HCT 25.8 % (39.6-50.0); MCV 93.5 fL (80.0-97.0); Mean Platelet Volume 8.8 fL (9.5-12.2); Platelet Count 396 X 10*3/uL (140-440); RBC 2.76 X 10*6/uL (4.40-5.60); RDW 14.6 % (11.5-14.5); WBC 10.92 X 10*3/uL (4.50-10.00)
[2021-05-01 10:32] LABS: African American GFR (CKD) 88.1 (60.0-200.0); Anion Gap 7.2 mmol/L (4.00-12.00); BUN/Creat Ratio 32.22 Ratio (12.00-20.00); Calcium 7.7 mg/dL (8.7-10.3); Carbon Dioxide 22.8 mmol/L (21.6-31.8); Magnesium 1.8 mg/dL (1.5-2.4); Potassium 4.8 mmol/L (3.5-5.5)
[2021-05-01 11:44] LABS: Glucose,Whole Blood 134 mg/dL (75-99)
--- NOTE | 2021-05-01 12:15 | P.DS ---
Providers Date of admission: 04/25/21 16:03 Expected date of discharge: 05/01/21 Attending physician: Elvira Mcdaniels DO Consults: 04/26/21 11:06 Consult Physician Routine Consulting Provider: Enzo Ortiz Consult Reason/Comments: urinary retention w/ poss bladder mass hx prostate CA Do you want consulting provider notified?: Yes 04/28/21 13:12 Consult Physician Routine Consulting Provider: Dalia Figueroa Consult Reason/Comments: urine culture positive for Serratia marcescens Do you want consulting provider notified?: Yes 04/28/21 13:42 Consult Physician Routine Consulting Provider: Lucho Sapp Consult Reason/Comments: Bilateral knee effusions, advanced tricompartmental arthritic changes Do you want consulting provider notified?: Yes 04/30/21 11:51 Consult Physician Routine Consulting Provider: Severino Melendrez Consult Reason/Comments: IPR Do you want consulting provider notified?: Yes Primary care physician: Ciro Deshpande MD Hospital Course: Patient is a very pleasant 86-year-old male with a past medical history of prostate cancer, diabetes mellitus, hypertension, hyperlipidemia, and osteoarthritis. He presented to the emergency department with a chief complaint of progressive weakness with reports of loss of appetite, 18 pound weight loss, urinary frequency and dysuria. Patient was evaluated in the ER and admitted to the hospital for further management of his medical problems noted below Acute cystitis with urinary frequency, dysuria, hematuria and retention with positive cultures for Serratia marcescens. -Urine culture positive for Serratia marcescens, -Infectious disease consulted secondary to multi resistant gram-negative bacteria and recommend to finish antibiotic course with Cipro -Bladder ultrasound completed revealing a 4.4 cm equally of hypodensity along the bladder suspicious for bladder mass versus prostate enlargement. -Renal CT which revealed bilateral hydronephrosis and hydroureter. -Continue Flomax 0.4 mg daily -Follow up with urology outpatient for possible cystoscopy to evaluate possible bladder mass. Acute anemia, stable Hypomagnesemia, replaced Abnormal imaging with Ultrasound findings suspicious for bladder mass -Follow up with urology as directed Bilateral knee pain, swelling, and stiffness -X-rays bilateral knees: X-rays revealing advanced tricompartmental degenerative changes without acute fracture or dislocation in the left or right knees with small to moderate bilateral effusions and tiny osteochondromas of the proximal left tibia. Generalized weakness, lethargy, decreased appetite and weight loss -Need to rule out underlying malignancy Back pain with history of lumbar fusion Eez-iwrkglx-dzecdpagg diabetes mellitus Hyperlipidemia Patient was seen and evaluated by PT/OT. Acutely have recommended. Patient was accepted to [facility] inpatient rehab. He was seen and evaluated by me on the day of discharge. He will be discharged in a stable condition. Patient Condition at Discharge: Fair Plan - Discharge Summary Discharge Rx Participant: No New Discharge Prescriptions: New Tamsulosin [Flomax] 0.4 mg PO PC-BRKFST cap.er.24h dronabinoL [Marinol] 2.5 mg PO AC-BID cap Ciprofloxacin HCl [Cipro] 500 mg PO Q12H 5 Days #10 tab Melatonin 3 mg PO HS PRN tablet PRN Reason: Insomnia Continue FLUoxetine HCL [PROzac] 20 mg PO DAILY Atorvastatin [Lipitor] 20 mg PO DAILY Acetaminophen Tab [Tylenol] 650 mg PO Q4H PRN PRN Reason: Fever And/ Or Pain metFORMIN HCL [Glucophage] 500 mg PO BID Albuterol Inhaler [Ventolin Hfa Inhaler] 2 puff INHALATION RT-QID PRN PRN Reason: Shortness Of Breath Loratadine 10 mg PO DAILY Cholecalciferol [Vitamin D3 (25 Mcg = 1000 Iu)] 50 mcg PO DAILY Discharge Medication List Acetaminophen Tab [Tylenol] 650 mg PO Q4H PRN 04/25/21 [History] Albuterol Inhaler [Ventolin Hfa Inhaler] 2 puff INHALATION RT-QID PRN 04/25/21 [History] Atorvastatin [Lipitor] 20 mg PO DAILY 04/25/21 [History] Cholecalciferol [Vitamin D3 (25 Mcg = 1000 Iu)] 50 mcg PO DAILY 04/25/21 [History] FLUoxetine HCL [PROzac] 20 mg PO DAILY 04/25/21 [History] Loratadine 10 mg PO DAILY 04/25/21 [History] metFORMIN HCL [Glucophage] 500 mg PO BID 04/25/21 [History] Ciprofloxacin HCl [Cipro] 500 mg PO Q12H 5 Days #10 tab 05/01/21 [Rx] Melatonin 3 mg PO HS PRN tablet 05/01/21 [Rx] Tamsulosin [Flomax] 0.4 mg PO PC-BRKFST cap.er.24h 05/01/21 [Rx] dronabinoL [Marinol] 2.5 mg PO AC-BID cap 05/01/21 [Rx] Follow up Appointment(s)/Referral(s): Ciro Deshpande MD [Primary Care Provider] - 05/03/21 8:00 am Activity/Diet/Wound Care/Special Instructions: Follow up with ortho PRN Discharge Disposition: TRANSFER TO SNF/ECF
[2021-05-01 14:55] VITALS: BP 137/74; PULSE 71; TEMP 98
--- NOTE | 2021-05-01 15:11 | PN ---
PROGRESS NOTE DATE OF SERVICE: 05/01/2021 REASON FOR FOLLOWUP: Serratia marcescens complicated urinary tract infection. INTERVAL HISTORY: The patient is afebrile. The patient is breathing comfortably. Denies having any chest pain or shortness of breath or cough. No nausea. No vomiting. No abdominal pain. Still having difficulty with urination after the [place] catheter was discontinued. PHYSICAL EXAMINATION: Blood pressure 153/77, pulse of 73, temperature 98.2. He is 97% on room air. GENERAL DESCRIPTION: General description is an elderly male lying in bed in no distress. RESPIRATORY SYSTEM: Unlabored breathing. Clear to auscultation anteriorly. HEART: S1, S2. Regular rate and rhythm. ABDOMEN: Soft. No tenderness. LABS: Hemoglobin is 8, white count 10.9, BUN of 29, creatinine 0.9. Blood culture has been negative. DIAGNOSTIC IMPRESSION AND PLAN: Patient with Serratia marcescens complicated urinary tract infection. Blood culture has been negative. Patient on cefepime. Transition to oral Cipro for another 10 days and close outpatient followup. MMODL / IJN: [id number] /
[2021-05-01 16:54] LABS: Glucose,Whole Blood 210 mg/dL (75-99)
[2021-05-01] MEDS ORDERED: CEFEPIME 2 GM in SODIUM CHLORIDE 0.9% 100 ML IVPB SCH (20:00)
== END 2021-05-01 17:20 | DRG 690 ==
LOC: EC 13:30 → 4SSUR 16:03
PROVIDERS: ADMIT Internal Medicine; ATTEND Internal Medicine
PROC: 0S9D3ZX Drainage of Left Knee Joint, Percutaneous Approach, Diagnostic (ICD-10-PCS; principal; 2021-04-29)
PROC: 0X9 Anatomical Regions, Upper Extremities, Drainage (ICD-10-PCS; 2021-04-29)
PROC: 3E0U33Z Introduction of Anti-inflammatory into Joints, Percutaneous Approach (ICD-10-PCS; 2021-04-29)
DX: N13.6 Pyonephrosis (principal); E87.1 Hypo-osmolality and hyponatremia; E87.2 Acidosis; B96.89 Other specified bacterial agents as the cause of diseases classified elsewhere; E11.65 Type 2 diabetes mellitus with hyperglycemia; E78.5 Hyperlipidemia, unspecified; E83.42 Hypomagnesemia; F32.9 Major depressive disorder, single episode, unspecified; G89.29 Other chronic pain; I10 Essential (primary) hypertension; M11.20 Other chondrocalcinosis, unspecified site; M13.0 Polyarthritis, unspecified; M17.0 Bilateral primary osteoarthritis of knee; M48.061 Spinal stenosis, lumbar region without neurogenic claudication; M51.36 Other intervertebral disc degeneration, lumbar region; N17.9 Acute kidney failure, unspecified; Z85.46 Personal history of malignant neoplasm of prostate; I95.1 Orthostatic hypotension; D64.9 Anemia, unspecified; K52.9 Noninfective gastroenteritis and colitis, unspecified; Z79.84 Long term (current) use of oral hypoglycemic drugs; Z79.899 Other long term (current) drug therapy; Z92.3 Personal history of irradiation; Z98.1 Arthrodesis status
CPT/HCPCS: 36415; 71046; 72128; 72131; 74150; 76857; 80048; 80053; 81001; 82272; 83605; 83735; 84443; 84484; 84550; 85025; 85027; 85610; 85730; 87040; 87070; 87077; 87086; 87186; 87205; 89050; 89060; 93005; 94760; 96360; 99285

== ENCOUNTER 2021-10-30 13:32 | Emergency (ER) | payer MEDICARE, BC ==
[2021-10-30 13:51] VITALS: BP 117/71; PULSE 80; RESP 16; TEMP 98.1
--- NOTE | 2021-10-30 14:52 | ED ---
Fall HPI - General Chief Complaint: Fall Stated Complaint: fall, on thinners Time Seen by Provider: 10/30/21 14:02 Source: patient, RN notes reviewed Mode of arrival: wheelchair Limitations: physical limitation - History of Present Illness Initial Comments: This an 86-year-old male presents emergency Department with chief complaint of fall. Patient states that he just lost his balance wound quickly landing onto his buttocks region. He had no head injury no LOC conscious. Patient complains of pelvic, buttocks, left hip pain. Denies any low back pain. Patient denies any upper back pain. Patient denies any abdominal pain no other extremity injury. Patient states been having issues with his left hip. - Related Data Home Medications Medication Instructions Recorded Confirmed Acetaminophen Tab [Tylenol] 650 mg PO Q4H PRN 04/25/21 04/25/21 Albuterol Inhaler [Ventolin Hfa 2 puff INHALATION RT-QID PRN 04/25/21 04/25/21 Inhaler] Atorvastatin [Lipitor] 20 mg PO DAILY 04/25/21 04/25/21 Cholecalciferol [Vitamin D3 (25 50 mcg PO DAILY 04/25/21 04/25/21 Mcg = 1000 Iu)] FLUoxetine HCL [PROzac] 20 mg PO DAILY 04/25/21 04/25/21 Loratadine 10 mg PO DAILY 04/25/21 04/25/21 metFORMIN HCL [Glucophage] 500 mg PO BID 04/25/21 04/25/21 Previous Rx's Medication Instructions Recorded Ciprofloxacin HCl [Cipro] 500 mg PO Q12H 5 Days #10 tab 05/01/21 Melatonin 3 mg PO HS PRN tablet 05/01/21 Tamsulosin [Flomax] 0.4 mg PO PC-BRKFST cap.er.24h 05/01/21 dronabinoL [Marinol] 2.5 mg PO AC-BID cap 05/01/21 Allergies Allergy/AdvReac Type Severity Reaction Status Date / Time No Known Allergies Allergy Verified 10/30/21 13:51 Review of Systems ROS Statement: Those systems with pertinent positive or pertinent negative responses have been documented in the HPI. ROS Other: All systems not noted in ROS Statement are negative. Past Medical History Past Medical History: Cancer, Diabetes Mellitus, Hyperlipidemia, Hypertension, Osteoarthritis (OA) Additional Past Medical History / Comment(s): prostate CA, History of Any Multi-Drug Resistant Organisms: None Reported Additional Past Surgical History / Comment(s): lamenectomy Past Psychological History: Depression Smoking Status: Never smoker Past Alcohol Use History: None Reported Past Drug Use History: None Reported General Exam Limitations: no limitations Course Vital Signs 10/30/21 13:46 Temperature 98.1 F Pulse Rate 80 Respiratory 16 Rate Blood Pressure 117/71 O2 Sat by Pulse 97 Oximetry Medical Decision Making - Medical Decision Making 86-year-old male presented for a fall, left hip pain. Patient having chronic le ft hip pain x-ray showed severe degenerative end-stage bone on bone. CT is obtained secondary discomfort still with any weightbearing CT is negative. Patient be discharged in stable condition return parameters were discussed. Disposition Clinical Impression: Fall, Contusion of left hip, Arthritis of hip Disposition: HOME SELF-CARE Condition: Stable Instructions (If sedation given, give patient instructions): Hip Pain (ED) Additional Instructions: Please return to the Emergency Department if symptoms worsen or any other concerns. Is patient prescribed a controlled substance at d/c from ED?: No Referrals: Ciro Deshpande MD [Primary Care Provider] - 1-2 days Stuart Anna DO [Doctor of Osteopathic Medicine] - 1-2 days Time of Disposition: 16:02
--- NOTE | 2021-10-30 15:04 | XR ---
EXAMINATION TYPE: AP view pelvis and 2 views left hip DATE OF EXAM: 10/30/2021 Comparison: None Clinical History: 86-year-old male with pain after fall Findings: Degenerative changes lower lumbar spine. Mild degenerative changes side joints. There is mild degener ative change of the right hip with some axial joint space narrowing and subchondral sclerosis. There is end-stage degenerative change of the left hip with [id number] articulation and mild bony remodel ing. Osteopenia. No displaced fracture seen. Impression: 1. End-stage [id number] left hip OA. Mild degenerative change right hip. 2. Osteopenia. No displaced fracture seen.
--- NOTE | 2021-10-30 15:46 | CT ---
EXAMINATION TYPE: CT hip LT wo con DATE OF EXAM: 10/30/2021 COMPARISON: Radiograph same day HISTORY: 86-year-old male Fall today. Left hip pain. TECHNIQUE: Contiguous axial scanning of the left hip without IV contrast. Coronal and sagittal recons tructions performed. CT DLP: 464.4 mGycm Automated exposure control for dose reduction was used. FINDINGS: There is advanced degenerative disc disease L3-L4 L4-L5. Nearly grade 2 retrolisthesis L3-L4 and grad e 1 retrolisthesis L4-L5. Suspect moderate focal spinal canal stenosis L3-L4 and at least mild L4-L5. Advanced hypertrophic facet arthropathy with at least moderate bilateral neural foraminal narrowing. Prominent distention of the urinary bladder to 11.5 cm. Some degenerative bony ankylosis of the left SI joint. Osteopenia. No displaced fracture seen. There is end-stage degenerative change at the left hip with complete loss of superolateral weightbear ing cartilage and joint space bone on bone articulation. Some chronic bony fragments about the greater trochanter suggesting chronic insertional gluteal tendi nopathy. Moderate joint effusion. There also appears to be a moderate trochanteric bursitis standing anteriorly. IMPRESSION: 1. END-STAGE, [id number] LEFT HIP OA. MODERATE JOINT EFFUSION PROBABLY REACTIVE. 2. OSTEOPENIA. NO DISPLACED FRACTURE SEEN. 3. CHANGES OF CHRONIC INSERTIONAL GLUTEAL TENDINOPATHY. THERE APPEARS TO BE A MODERATE TO LARGE TROCH ANTERIC BURSITIS EXTENDING ANTERIORLY. 4. ADVANCED DEGENERATIVE CHANGES IN THE VISUALIZED LOWER LUMBAR SPINE.
== END 2021-10-30 16:38 | disposition home or self-care (01) ==
LOC: EC 13:32
DX: S70.02XA Contusion of left hip, initial encounter (principal); M16.12 Unilateral primary osteoarthritis, left hip; E11.9 Type 2 diabetes mellitus without complications; I10 Essential (primary) hypertension; M19.90 Unspecified osteoarthritis, unspecified site; F32.A Depression, unspecified; Z79.84 Long term (current) use of oral hypoglycemic drugs; Z79.51 Long term (current) use of inhaled steroids; W01.0XXA Fall on same level from slipping, tripping and stumbling without subsequent striking against object, initial encounter
CPT/HCPCS: 73502; 99284

== ENCOUNTER 2021-11-21 11:46 | Inpatient (IN) | payer MEDICARE, BC ==
[2021-11-21 15:51] LABS: Basophils # (A) 0.1 k/uL (0-0.2); Basophils % (A) 2 %; Eosinophils # (A) 0.2 k/uL (0-0.7); Eosinophils % (A) 2 %; HCT 43.2 % (39.0-53.0); HGB 14.1 gm/dL (13.0-17.5); Lymphocytes # (A) 1.5 k/uL (1.0-4.8); Lymphocytes % (A) 20 %; MCH 30.8 pg (25.0-35.0); MCHC 32.6 g/dL (31.0-37.0); MCV 94.3 fL (80.0-100.0); Monocytes # (A) 0.5 k/uL (0-1.0); Monocytes % (A) 7 %; Neutrophils # (A) 4.9 k/uL (1.3-7.7); Neutrophils % (A) 66 %; Platelet Count 259 k/uL (150-450); RBC 4.58 m/uL (4.30-5.90); RDW 14.5 % (11.5-15.5); WBC 7.5 k/uL (3.8-10.6)
[2021-11-21 16:01] LABS: ALT 10 U/L (4-49); AST 23 U/L (17-59); African American GFR (CKD) >90 (>60 ml/min/1.73 sqM); Albumin 4.5 g/dL (3.5-5.0); Alkaline Phosphatase 58 U/L (38-126); Anion Gap 12 mmol/L; Blood Urea Nitrogen 16 mg/dL (9-20); Calcium 9.3 mg/dL (8.4-10.2); Carbon Dioxide 24 mmol/L (22-30); Chloride 101 mmol/L (98-107); Glucose 112 mg/dL (74-99); Magnesium 1.9 mg/dL (1.6-2.3); Non-African American GFR(CKD) 78 (>60 ml/min/1.73 sqM); Potassium 4.4 mmol/L (3.5-5.1); Sodium 137 mmol/L (137-145); Total Bilirubin 0.8 mg/dL (0.2-1.3); Total Protein 7.5 g/dL (6.3-8.2)
--- NOTE | 2021-11-21 16:06 | CT ---
EXAMINATION TYPE: CT brain christopher edward DATE OF EXAM: 11/21/2021 COMPARISON: None HISTORY: fall, confusion CT DLP: 1325.6 mGycm Automated exposure control for dose reduction was used. TECHNIQUE: CT scan of the head and cervical spine are performed without contrast. FINDINGS: There is no acute intracranial hemorrhage, mass effect, or midline shift identified. The ventricles and sulci are within normal limits in size. Periventricular white matter shows patchy lo w attenuation. There is cortical atrophy. The globes are intact and the visualized sinuses are clear. Cervical spine is visualized in its entirety from C1 through upper thoracic levels and demonstrates s atisfactory alignment without evidence spinal stenosis present at and likely C2-3, C4-5 of acute frac ture or dislocation. Prevertebral soft tissue appears within normal limits. There is multilevel spo ndylosis, loss of disc height present at intervertebral levels. There is accentuation of the cervical lordosis. 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 The C1-C2 articula tion is unremarkable. Multilevel foraminal encroachment is present, multilevel facet arthropathy. IMPRESSION: 1. There is no acute fracture or dislocation evident in the cervical spine. 2. No acute intracranial hemorrhage, mass effect, or midline shift is seen.
--- NOTE | 2021-11-21 16:12 | XR ---
EXAMINATION TYPE: XR chest 2V DATE OF EXAM: 11/21/2021 COMPARISON: 04/25/2021 TECHNIQUE: PA and lateral views submitted. HISTORY: Weakness and sore throat FINDINGS: The lungs are clear and there is no pneumothorax, pleural effusion, or focal pneumonia. Hyperinflat ion. Subsegmental changes at the right lung base. Arthropathy of the shoulders. Degenerative changes spine. Hypertrophic change of the anterior margin of the first ribs bilaterally. IMPRESSION: 1. Basilar atelectasis favored over pneumonia correlate clinically. 2. Correlate for COPD.
[2021-11-21 16:18] LABS: INR 0.9 (<1.2); Partial Thromboplastin Time 22.7 sec (22.0-30.0); Prothrombin Time 10.3 sec (9.0-12.0)
--- NOTE | 2021-11-21 16:32 | ED ---
General Adult HPI - General Chief complaint: Weakness Stated complaint: sorethroat, confusion Time Seen by Provider: 11/21/21 14:27 Source: patient Mode of arrival: wheelchair Limitations: no limitations - History of Present Illness Initial comments: This 86-year-old male presents emergency Department with increased weakness over the last couple of weeks, worsening over the last 2 days. Family in room state that patient does live alone and does walk at home with a walker. They state he has been complaining of a sore throat over the last couple days and states that he has had increased weakness as they have had to help him go from sitting to standing when the visit. Patient states he did fall yesterday when he was getting up from his chair. He states he did fall when he went from sitting to standing yesterday and trying to get up out of his chair. He denies any loss of consciousness or hitting his head, he states he slid out of his chair when trying to stand. Family in room state that yesterday morning they noticed he seems to be walking a little bit different than usual and states he has been veering off to the right. They state over the last couple days patient has had increased confusion and decreased appetite however he has been eating and drinking just less than usual. Family in room denies any fevers. Patient denies any chest pain, shortness of breath, abdominal pain, nausea, vomiting, one-sided weakness, change in vision, trouble swallowing, change in bowel or bladder, cough, congestion, fever. Patient states he does have a little bit of a sore throat which has been there the last couple days. - Related Data Home Medications Medication Instructions Recorded Confirmed Albuterol Inhaler [Ventolin Hfa 2 puff INHALATION RT-QID PRN 04/25/21 11/21/21 Inhaler] Atorvastatin [Lipitor] 20 mg PO HS 04/25/21 11/21/21 Cholecalciferol [Vitamin D3 (25 25 mcg PO BID 04/25/21 11/21/21 Mcg = 1000 Iu)] FLUoxetine HCL [PROzac] 20 mg PO DAILY 04/25/21 11/21/21 Loratadine 10 mg PO DAILY 04/25/21 11/21/21 metFORMIN HCL [Glucophage] 500 mg PO BID 04/25/21 11/21/21 Acetaminophen Tab [Tylenol Tab] 1,000 mg PO BID 11/21/21 11/21/21 Acetaminophen Tab [Tylenol Tab] 1,000 mg PO Q6HR PRN 11/21/21 11/21/21 Clopidogrel [Plavix] 75 mg PO HS 11/21/21 11/21/21 Cyanocobalamin [Vitamin B-12] 500 mcg PO HS 11/21/21 11/21/21 Loperamide HCl [Imodium A-D] 2 mg PO QID PRN 11/21/21 11/21/21 Tamsulosin [Flomax] 0.4 mg PO BID 11/21/21 11/21/21 Allergies Allergy/AdvReac Type Severity Reaction Status Date / Time No Known Allergies Allergy Verified 11/21/21 16:15 Review of Systems ROS Statement: Those systems with pertinent positive or pertinent negative responses have been documented in the HPI. ROS Other: All systems not noted in ROS Statement are negative. Past Medical History Past Medical History: Cancer, Diabetes Mellitus, Hyperlipidemia, Hypertension, Osteoarthritis (OA) Additional Past Medical History / Comment(s): prostate CA, History of Any Multi-Drug Resistant Organisms: None Reported Additional Past Surgical History / Comment(s): lamenectomy Past Psychological History: Depression Smoking Status: Never smoker Past Alcohol Use History: None Reported Past Drug Use History: None Reported General Exam Limitations: no limitations General appearance: alert, in no apparent distress Head exam: Present: atraumatic, normocephalic, normal inspection Eye exam: Present: normal appearance, PERRL, EOMI. Absent: scleral icterus, conjunctival injection, nystagmus, periorbital swelling, periorbital tenderness Pupils: Present: normal accommodation ENT exam: Present: normal exam, normal oropharynx, mucous membranes moist, other (Uvula midline area. Mild erythema and edema to the left tonsil, no peritonsillar or tonsillar abscess or exudates visualized. Patient having no tr ouble breathing or swallowing) Neck exam: Present: full ROM. Absent: normal inspection Respiratory exam: Present: normal lung sounds bilaterally. Absent: respiratory distress, wheezes, rales, rhonchi, stridor, chest wall tenderness, accessory muscle use, decreased breath sounds, prolonged expiratory Cardiovascular Exam: Present: regular rate, normal rhythm, normal heart sounds. Absent: systolic murmur, diastolic murmur, rubs, gallop, clicks GI/Abdominal exam: Present: soft, normal bowel sounds. Absent: distended, tenderness, guarding, rebound, rigid Extremities exam: Present: normal inspection, full ROM, normal capillary refill. Absent: tenderness, pedal edema, joint swelling, calf tenderness Back exam: Present: normal inspection. Absent: CVA tenderness (R), CVA tenderness (L), paraspinal tenderness, vertebral tenderness Neurological exam: Present: alert, oriented X3, CN II-XII intact, other (Equal strength in bilateral upper and lower extremities. No drift present with arms raised, palms up with eyes shut. Patient able to perform 6 cardinal signs days along with finger to nose) Psychiatric exam: Present: normal affect, normal mood Skin exam: Present: warm, dry, intact, normal color. Absent: rash Course Vital Signs 11/21/21 11/21/21 11/21/21 12:36 16:00 17:55 Temperature 97.9 F 100.0 F H 98.2 F Pulse Rate 92 67 68 Respiratory 18 16 17 Rate Blood Pressure 114/67 163/85 174/84 O2 Sat by Pulse 97 96 96 Oximetry Medical Decision Making - Medical Decision Making This 86-year-old male presents emergency department with increased weakness x 2 weeks, worsening over the last 2 days and is now associated with a sore throat t hat began 2 days ago. Left tonsil with slight erythema and edema, no exudates or abscess visualized. Labs unremarkable. Urine showed urinary tract infection present. 1 g Rocephin given the patient in the ER. CT brain and C-spine without any acute abnormalities. Family stated the patient has been walking more the right over the last couple weeks but are unsure if it is due to his chronic left hip pain which she was supposed to see orthopedic doctor today for injections, however due to increased weakness a brought him here. Discussed this case with my attending, Dr. Ayala. I did admit patient to 's services who accepted the patient to their services with neurology consult that to rule out TIA and Guillain [place]. Neurology was consulted. Patient verbally agreed to stay in the hospital for further workup, evaluation and treatment. - Lab Data Result diagrams: 11/21/21 15:40 11/21/21 15:40 Lab Results 11/21/21 11/21/21 11/21/21 Range/Units 15:40 15:40 15:40 WBC 7.5 (3.8-10.6) k/uL RBC 4.58 (4.30-5.90) m/uL Hgb 14.1 (13.0-17.5) gm/dL Hct 43.2 (39.0-53.0) % MCV 94.3 (80.0-100.0) fL MCH 30.8 (25.0-35.0) pg MCHC 32.6 (31.0-37.0) g/dL RDW 14.5 (11.5-15.5) % Plt Count 259 (150-450) k/uL MPV 7.0 Neutrophils % 66 % Lymphocytes % 20 % Monocytes % 7 % Eosinophils % 2 % Basophils % 2 % Neutrophils # 4.9 (1.3-7.7) k/uL Lymphocytes # 1.5 (1.0-4.8) k/uL Monocytes # 0.5 (0-1.0) k/uL Eosinophils # 0.2 (0-0.7) k/uL Basophils # 0.1 (0-0.2) k/uL PT 10.3 (9.0-12.0) sec INR 0.9 (<1.2) APTT 22.7 (22.0-30.0) sec Sodium 137 (137-145) mmol/L Potassium 4.4 (3.5-5.1) mmol/L Chloride 101 (98-107) mmol/L Carbon Dioxide 24 (22-30) mmol/L Anion Gap 12 mmol/L BUN 16 (9-20) mg/dL Creatinine 0.84 (0.66-1.25) mg/dL Est GFR (CKD-EPI)AfAm >90 (>60 ml/min/1.73 sqM) Est GFR (CKD-EPI)NonAf 78 (>60 ml/min/1.73 sqM) Glucose 112 H (74-99) mg/dL Plasma Lactic Acid Dada (0.7-2.0) mmol/L Calcium 9.3 (8.4-10.2) mg/dL Magnesium 1.9 (1.6-2.3) mg/dL Total Bilirubin 0.8 (0.2-1.3) mg/dL AST 23 (17-59) U/L ALT 10 (4-49) U/L Alkaline Phosphatase 58 (38-126) U/L Troponin I (0.000-0.034) ng/mL Total Protein 7.5 (6.3-8.2) g/dL Albumin 4.5 (3.5-5.0) g/dL Urine Color Urine Appearance (Clear) Urine pH (5.0-8.0) Ur Specific [place] (1.001-1.035) Urine Protein (Negative) Urine Glucose (UA) (Negative) Urine Ketones (Negative) Urine Blood (Negative) Urine Nitrite (Negative) Urine Bilirubin (Negative) Urine Urobilinogen (<2.0) mg/dL Ur Leukocyte Esterase (Negative) Urine RBC (0-5) /hpf Urine WBC (0-5) /hpf Urine Bacteria (None) /hpf Hyaline Casts (0-2) /lpf Urine Mucus (None) /hpf Urine Yeast (Budding) (None) /hpf Coronavirus (PCR) (Not Detectd) Group A Strep Rapid (Negative) 11/21/21 11/21/21 11/21/21 Range/Units 15:40 15:40 15:40 WBC (3.8-10.6) k/uL RBC (4.30-5.90) m/uL Hgb (13.0-17.5) gm/dL Hct (39.0-53.0) % MCV (80.0-100.0) fL MCH (25.0-35.0) pg MCHC (31.0-37.0) g/dL RDW (11.5-15.5) % Plt Count (150-450) k/uL MPV Neutrophils % % Lymphocytes % % Monocytes % % Eosinophils % % Basophils % % Neutrophils # (1.3-7.7) k/uL Lymphocytes # (1.0-4.8) k/uL Monocytes # (0-1.0) k/uL Eosinophils # (0-0.7) k/uL Basophils # (0-0.2) k/uL PT (9.0-12.0) sec INR (<1.2) APTT (22.0-30.0) sec Sodium (137-145) mmol/L Potassium (3.5-5.1) mmol/L Chloride (98-107) mmol/L Carbon Dioxide (22-30) mmol/L Anion Gap mmol/L BUN (9-20) mg/dL Creatinine (0.66-1.25) mg/dL Est GFR (CKD-EPI)AfAm (>60 ml/min/1.73 sqM) Est GFR (CKD-EPI)NonAf (>60 ml/min/1.73 sqM) Glucose (74-99) mg/dL Plasma Lactic Acid Dada 1.4 (0.7-2.0) mmol/L Calcium (8.4-10.2) mg/dL Magnesium (1.6-2.3) mg/dL Total Bilirubin (0.2-1.3) mg/dL AST (17-59) U/L ALT (4-49) U/L Alkaline Phosphatase (38-126) U/L Troponin I 0.033 (0.000-0.034) ng/mL Total Protein (6.3-8.2) g/dL Albumin (3.5-5.0) g/dL Urine Color Urine Appearance (Clear) Urine pH (5.0-8.0) Ur Specific [place] (1.001-1.035) Urine Protein (Negative) Urine Glucose (UA) (Negative) Urine Ketones (Negative) Urine Blood (Negative) Urine Nitrite (Negative) Urine Bilirubin (Negative) Urine Urobilinogen (<2.0) mg/dL Ur Leukocyte Esterase (Negative) Urine RBC (0-5) /hpf Urine WBC (0-5) /hpf Urine Bacteria (None) /hpf Hyaline Casts (0-2) /lpf Urine Mucus (None) /hpf Urine Yeast (Budding) (None) /hpf Coronavirus (PCR) (Not Detectd) Group A Strep Rapid Negative (Negative) 11/21/21 11/21/21 Range/Units 16:38 16:43 WBC (3.8-10.6) k/uL RBC (4.30-5.90) m/uL Hgb (13.0-17.5) gm/dL Hct (39.0-53.0) % MCV (80.0-100.0) fL MCH (25.0-35.0) pg MCHC (31.0-37.0) g/dL RDW (11.5-15.5) % Plt Count (150-450) k/uL MPV Neutrophils % % Lymphocytes % % Monocytes % % Eosinophils % % Basophils % % Neutrophils # (1.3-7.7) k/uL Lymphocytes # (1.0-4.8) k/uL Monocytes # (0-1.0) k/uL Eosinophils # (0-0.7) k/uL Basophils # (0-0.2) k/uL PT (9.0-12.0) sec INR (<1.2) APTT (22.0-30.0) sec Sodium (137-145) mmol/L Potassium (3.5-5.1) mmol/L Chloride (98-107) mmol/L Carbon Dioxide (22-30) mmol/L Anion Gap mmol/L BUN (9-20) mg/dL Creatinine (0.66-1.25) mg/dL Est GFR (CKD-EPI)AfAm (>60 ml/min/1.73 sqM) Est GFR (CKD-EPI)NonAf (>60 ml/min/1.73 sqM) Glucose (74-99) mg/dL Plasma Lactic Acid Dada (0.7-2.0) mmol/L Calcium (8.4-10.2) mg/dL Magnesium (1.6-2.3) mg/dL Total Bilirubin (0.2-1.3) mg/dL AST (17-59) U/L ALT (4-49) U/L Alkaline Phosphatase (38-126) U/L Troponin I (0.000-0.034) ng/mL Total Protein (6.3-8.2) g/dL Albumin (3.5-5.0) g/dL Urine Color Yellow Urine Appearance Clear (Clear) Urine pH 5.5 (5.0-8.0) Ur Specific [place] 1.027 (1.001-1.035) Urine Protein 1+ H (Negative) Urine Glucose (UA) Negative (Negative) Urine Ketones 1+ H (Negative) Urine Blood Large H (Negative) Urine Nitrite Negative (Negative) Urine Bilirubin Negative (Negative) Urine Urobilinogen <2.0 (<2.0) mg/dL Ur Leukocyte Esterase Trace H (Negative) Urine RBC >182 H (0-5) /hpf Urine WBC 18 H (0-5) /hpf Urine Bacteria Rare H (None) /hpf Hyaline Casts 3 H (0-2) /lpf Urine Mucus Few H (None) /hpf Urine Yeast (Budding) Few H (None) /hpf Coronavirus (PCR) Not Detected (Not Detectd) Group A Strep Rapid (Negative) Disposition Clinical Impression: Weakness, UTI (urinary tract infection), Ataxia, Tonsillitis Disposition: ADMITTED IP TO THIS HOSP Condition: Serious
[2021-11-21 16:58] LABS: Appearance,Urine Clear (Clear); Bacteria,Urine Rare /hpf; Bilirubin,Urine Negative (Negative); Blood,Urine Large (Negative); Budding Yeast,Urine Few /hpf; Color,Urine Yellow; Glucose,Urine (UA) Negative (Negative); Hyaline Casts,Urine 3 /lpf (0-2); Ketones,Urine 1+ (Negative); Leukocyte Esterase,Urine Trace (Negative); Mucus,Urine Few /hpf; Nitrite,Urine Negative (Negative); PH, Urine 5.5 (5.0-8.0); Protein,Urine 1+ (Negative); RBC,Urine >182 /hpf (0-5); Specific Gravity,Urine 1.027 (1.001-1.035); Urobilinogen,Urine <2.0 mg/dL (<2.0); WBC,Urine 18 /hpf (0-5)
[2021-11-21] MEDS ORDERED: cefTRIAXone IN SWFI 1,000 MG/10 ML SYRINGE IVP STA (18:10)
[2021-11-21] MEDS ORDERED: NALOXONE 0.4 MG/ML 1 ML VIAL IV PRN (18:18)
[2021-11-21] MEDS: SODIUM CHLORIDE 0.9% 1,000 ML IV SCH (21:40)
[2021-11-21] MEDS ORDERED: LOPERAMIDE 2 MG CAP PO PRN (22:44)
[2021-11-21] MEDS ORDERED: ALBUTEROL NEBULIZED 2.5 MG/3 ML INHALATION PRN (22:44)
[2021-11-21] MEDS ORDERED: hydrALAZINE HCL 25 MG TAB PO STA (22:46)
--- NOTE | 2021-11-22 00:02 | P.HPIM ---
History of Present Illness H&P Date: 11/21/21 Patient is an 86-year-old male with a PMH of type II DM, hyperlipidemia, COPD, and BPH who presents to the emergency room with complaints of fall and diffuse weakness over the past few days. History supplemented by the patient's daughter at the bedside. The patient reports that he initially developed a sore throat this past Friday, as a result of which she has not been eating or drinking as much. He reports falling yesterday as he was getting up from a chair, falling down to his buttocks. He denied suffering any injuries or head trauma. He denied losing consciousness. The daughter reports that they noticed that his gait appeared somewhat abnormal earlier today and he became concerned, and decided to bring him to the emergency room. Patient reports feeling weak throughout, and attributes it to his decreased oral intake over the past few days. He denied expressing back pain, chest discomfort, shortness of breath, fever, chills, cough. Denied nausea, vomiting, abdominal pain. Also denied urinary complaints including dysuria, urinary frequency or urgency. The patient lives by himself and ambulates with a walker at baseline. CT head and cervical spine in the emergency room was unremarkable. Chest x-ray was consistent with COPD and bibasilar atelectasis. EKG revealed sinus rhythm with 80 bpm with left bundle branch block. Laboratory evaluation was remarkable for UA consistent with UTI, troponin 0.033, rapid strep negative, and coronavirus PCR negative. Review of systems: Pertinent positives and negatives as discussed in HPI, a complete review of systems was performed and all other systems are negative. Physical examination: General: non toxic, no distress, appears at stated age, normal weight Derm: no unusual rashes/lesions no unusual ecchymoses, warm, dry Head: atraumatic, normocephalic, symmetric Eyes: EOMI, no lid lag, anicteric sclera, pupils equal round reactive to light ENT: Nose and ears atraumatic, no thrush, no pharyngeal erythema Neck: No thyromegaly, no cervical lymphadenopathy, trachea midline, supple Mouth: no lip lesion, mucus membranes moist Cardiovascular: S1S2 reg, no murmur, positive posterior tibial pulse bilateral, no edema, capillary refill less than 2 seconds Lungs: CTA bilateral, no rhonchi, no rales , no accessory muscle use Abdominal: soft, nontender to palpation, no guarding, no appreciable organomegaly, normal bowel sounds Ext: no gross muscle atrophy, muscle strength 3+ out of 5 in bilateral lower extremities, strength 5 out of 5 in bilateral upper extremities, no contractures, Neuro: CN II-XI grossly intact, light touch intact all 4 extremities, finger to nose within normal limits, Psych: Alert, oriented, appropriate affect Assessment/plan Bilateral lower extremity weakness with fall suspected secondary to deconditioning from poor oral intake in setting of UTI -PT consult -Fall precautions -Continue ceftriaxone -Follow up urine cultures -IV fluids Chronic conditions: Type II DM, hyperlipidemia, COPD, BPH -Continue with home meds -Check A1c -Insulin sliding scale and blood glucose monitoring DVT prophylaxis -Heparin The patient is admitted with an anticipated greater than 2 midnight stay for evaluation of LE weakness CODE STATUS: Full Code Discussed with: Patient Anticipated discharge date: 11/[address]: Home Past Medical History Past Medical History: Cancer, CVA/TIA, Diabetes Mellitus, Hyperlipidemia, Hypertension, Osteoarthritis (OA) Additional Past Medical History / Comment(s): prostate CA, History of Any Multi-Drug Resistant Organisms: None Reported Additional Past Surgical History / Comment(s): lamenectomy Past Anesthesia/Blood Transfusion Reactions: No Reported Reaction Past Psychological History: Depression Smoking Status: Former smoker Past Alcohol Use History: None Reported Past Drug Use History: None Reported - Past Family History Father Family Medical History: Myocardial Infarction ([place]) Mother Family Medical History: Dementia Medications and Allergies Home Medications Medication Instructions Recorded Confirmed Type Albuterol Inhaler [Ventolin Hfa 2 puff INHALATION RT-QID PRN 04/25/21 11/21/21 History Inhaler] Atorvastatin [Lipitor] 20 mg PO HS 04/25/21 11/21/21 History Cholecalciferol [Vitamin D3 (25 25 mcg PO BID 04/25/21 11/21/21 History Mcg = 1000 Iu)] FLUoxetine HCL [PROzac] 20 mg PO DAILY 04/25/21 11/21/21 History Loratadine 10 mg PO DAILY 04/25/21 11/21/21 History metFORMIN HCL [Glucophage] 500 mg PO BID 04/25/21 11/21/21 History Acetaminophen Tab [Tylenol Tab] 1,000 mg PO BID 11/21/21 11/21/21 History Acetaminophen Tab [Tylenol Tab] 1,000 mg PO Q6HR PRN 11/21/21 11/21/21 History Clopidogrel [Plavix] 75 mg PO HS 11/21/21 11/21/21 History Cyanocobalamin [Vitamin B-12] 500 mcg PO HS 11/21/21 11/21/21 History Loperamide HCl [Imodium A-D] 2 mg PO QID PRN 11/21/21 11/21/21 History Tamsulosin [Flomax] 0.4 mg PO BID 11/21/21 11/21/21 History Allergies Allergy/AdvReac Type Severity Reaction Status Date / Time No Known Allergies Allergy Verified 11/21/21 16:15 Physical Exam Vitals: Vital Signs Temp Pulse Pulse Resp BP BP Pulse Ox 11/21/21 21:55 99.6 F 70 17 171/95 96 11/21/21 17:55 98.2 F 68 17 174/84 96 11/21/21 16:00 100.0 F H 67 16 163/85 96 11/21/21 12:36 97.9 F 92 18 114/67 97 Intake and Output 11/21/21 11/21/21 11/22/21 14:59 22:59 06:59 Other: Weight 68.946 kg 68.946 kg Results CBC & Chem 7: 11/21/21 15:40 11/21/21 15:40 Labs: Abnormal Lab Results - Last 24 Hours (Table) 11/21/21 11/21/21 Range/Units 15:40 16:38 Glucose 112 H (74-99) mg/dL Urine Protein 1+ H (Negative) Urine Ketones 1+ H (Negative) Urine Blood Large H (Negative) Ur Leukocyte Esterase Trace H (Negative) Urine RBC >182 H (0-5) /hpf Urine WBC 18 H (0-5) /hpf Urine Bacteria Rare H (None) /hpf Hyaline Casts 3 H (0-2) /lpf Urine Mucus Few H (None) /hpf Urine Yeast (Budding) Few H (None) /hpf Thrombosis Risk Factor Assmnt - Choose All That Apply Any of the Below Risk Factors Present?: No Other Risk Factors: Yes Each Risk Factor Represents 3 Points: Age 75 years or older Other congenital or acquired thrombophilia - If yes, enter type in comment: No Thrombosis Risk Factor Assessment Total Risk Factor Score: 3 Thrombosis Risk Factor Assessment Level: Moderate Risk
[2021-11-22] MEDS: FLUoxetine HCL 20 MG CAP PO SCH (08:14)
[2021-11-22] MEDS: TAMSULOSIN 0.4 MG CAP.ER.24H PO SCH ×2 (08:14→21:08)
[2021-11-22] MEDS: CHOLECALCIFEROL 25 MCG (1000 IU) TABLET PO SCH ×2 (08:14→21:08)
[2021-11-22] MEDS: HEPARIN SODIUM,PORCINE/PF 5,000 UNIT/0.5 ML SYRINGE SQ SCH ×3 (08:14→23:42)
[2021-11-22] MEDS: LORATADINE 10 MG TAB PO SCH (08:14)
[2021-11-22 08:15] LABS: Glucose,Whole Blood 150 mg/dL (75-99)
[2021-11-22] MEDS: INSULIN ASPART (NovoLOG) 100 UNIT/ML VIAL SQ SCH ×4 (08:18→21:08)
[2021-11-22 11:55] LABS: Glucose,Whole Blood 91 mg/dL (75-99)
--- NOTE | 2021-11-22 12:58 | P.CNNES ---
History of Present Illness Consult date: 11/22/21 Requesting physician: Camelia Huang Reason for Consult: Rule out TIA vs GBS History of Present Illness: This is an 86-year-old gentleman with history of recent TIA, type 2 diabetes, hyperlipidemia, COPD, benign prostate hyperplasia presented emergency department on 11/21/2021 for generalized weakness and a fall. Some of the history is obtained from patient's daughter who is at bedside. It seems that the patient has been having generalized weakness over the past few weeks. Seems that the patient has been having the so throat since the past Friday and has not has not been eating or drinking much and he's been having difficulty getting up from the chair and been falling on his buttock region. Patient denied of any head trauma or any loss of consciousness. Seems that the patient had a fall about a month ago and fell on his buttocks but per the daughter is a was a mechanical fall since the the patient was using his walker but forgot to lock it and had another one recently. No seizure-like activity noted. Patient denies of any numbness or tingling, any drooping of the eyes that's witnessed by the daughter or him. He denies of any focal weakness. He denies of any the difficulty getting his words out. Daughter denies that the patient has any resting tremor. Some of home medication of vitamin B12 500 g daily, Lipitor 20 minute grams daily at bedtime and Plavix 75 mg daily at bedtime. Patient is having left hip pain. Patient walks with a walker for the last 1 year. Seems that the patient had a recent TIA in the presented to [facility] since he had slurring of the speech. Some other workup in the hospital consisted of: Initial vital signs his blood pressure of 114/67, heart rate of 92, respiratory of 18, temperature of 97.9 Fahrenheit oral and pulse ox of 97% at room air. CBC with differential is unremarkable Chemistry panel is unremarkable AST and ALT is within normal limits Hemoglobin A1c is 5.8 Urinalysis seems suggestive of urinary tract infection. Group a strap rapid is negative. Jackson virus PCR was not detected. CT of the head is reported as no acute intracranial hemorrhage, mass effect or midline shift. I personally reviewed the CT of the head and there is no acute subacute ischemia and there is no truncal hemorrhage at. CT cervical spine was reported as there is no acute fracture or dislocation evident in the cervical spine. Review of Systems Review of system: The 12 point system was reviewed and apparent positive and negative per HPI. Past Medical History Past Medical History: Cancer, CVA/TIA, Diabetes Mellitus, Hyperlipidemia, Hypertension, Osteoarthritis (OA) Additional Past Medical History / Comment(s): prostate CA, History of Any Multi-Drug Resistant Organisms: None Reported Additional Past Surgical History / Comment(s): lamenectomy Past Anesthesia/Blood Transfusion Reactions: No Reported Reaction Past Psychological History: Depression Smoking Status: Former smoker Past Alcohol Use History: None Reported Past Drug Use History: None Reported - Past Family History Father Family Medical History: Myocardial Infarction ([place]) Mother Family Medical History: Dementia Medications and Allergies Home Medications Medication Instructions Recorded Confirmed Type Albuterol Inhaler [Ventolin Hfa 2 puff INHALATION RT-QID PRN 04/25/21 11/21/21 History Inhaler] Atorvastatin [Lipitor] 20 mg PO HS 04/25/21 11/21/21 History Cholecalciferol [Vitamin D3 (25 25 mcg PO BID 04/25/21 11/21/21 History Mcg = 1000 Iu)] FLUoxetine HCL [PROzac] 20 mg PO DAILY 04/25/21 11/21/21 History Loratadine 10 mg PO DAILY 04/25/21 11/21/21 History metFORMIN HCL [Glucophage] 500 mg PO BID 04/25/21 11/21/21 History Acetaminophen Tab [Tylenol Tab] 1,000 mg PO BID 11/21/21 11/21/21 History Acetaminophen Tab [Tylenol Tab] 1,000 mg PO Q6HR PRN 11/21/21 11/21/21 History Clopidogrel [Plavix] 75 mg PO HS 11/21/21 11/21/21 History Cyanocobalamin [Vitamin B-12] 500 mcg PO HS 11/21/21 11/21/21 History Loperamide HCl [Imodium A-D] 2 mg PO QID PRN 11/21/21 11/21/21 History Tamsulosin [Flomax] 0.4 mg PO BID 11/21/21 11/21/21 History Allergies Allergy/AdvReac Type Severity Reaction Status Date / Time No Known Allergies Allergy Verified 11/21/21 16:15 Physical Examination - Vital Signs Vital Signs: Vital Signs Temp Pulse Pulse Resp BP BP Pulse Ox 11/22/21 08:00 99.1 F 78 14 151/69 98 11/22/21 07:47 97 11/22/21 02:00 98.9 F 70 15 177/75 97 11/22/21 00:15 150/82 11/21/21 21:55 99.6 F 70 17 171/95 96 11/21/21 17:55 98.2 F 68 17 174/84 96 11/21/21 16:00 100.0 F H 67 16 163/85 96 11/21/21 12:36 97.9 F 92 18 114/67 97 Intake and Output 11/21/21 11/22/21 11/22/21 22:59 06:59 14:59 Other: # Voids 2 Weight 68.946 kg GENERAL: The patient is lying in bed and is not in acute distress. CHEST: The heart rate is regular rate rhythm. No murmurs to auscultation. LUNG: Clear to auscultation bilaterally no wheezing noted throughout. Not labored breathing. ABDOMEN/GI: Bowel sounds present in all 4 quadrants. No tenderness to palpation throughout. NEUROLOGICAL: Higher mental function: The patient is awake, alert, oriented to self, place and time. Patient is following commands. No aphasia and no neglect. Cranial nerves: The pupils are round, equal and reactive to light. Visual donahue are full to confrontation throughout. Extraocular movement is intact no nystagmus is noted. Facial sensation is normal to touch throughout. The facial strength is normal throughout. Hearing is moderately decreased bilaterally to hand rub. Tongue is midline and moved [id number] without any difficulty. No dysarthria is noted. Shoulder shrug is normal bilaterally. Motor: Gait is deferred and wanted to be addressed another time. The strength is left lower extremity is limited because of left hip pain but is able to lift left lower above gravity. Otherwise 5 over 5 throughout. Normal tone and bulk. Cerebellum: Normal finger to nose bilaterally. Sensation: Sensation is normal to touch throughout. Reflexes (right/left): 2+ throughout.. Results - Laboratory Findings CBC and BMP: 11/21/21 15:40 11/21/21 15:40 Abnormal Lab Findings: Abnormal Labs 11/21/21 11/21/21 11/22/21 15:40 16:38 08:13 Glucose 112 H POC Glucose (mg/dL) 150 H Urine Protein 1+ H Urine Ketones 1+ H Urine Blood Large H Ur Leukocyte Esterase Trace H Urine RBC >182 H Urine WBC 18 H Urine Bacteria Rare H Hyaline Casts 3 H Urine Mucus Few H Urine Yeast (Budding) Few H Assessment and Plan Assessment: Generalized weakness, recent fall and lack of appetite seems possibly due to underlying acute urinary tract infection. 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 Possibly underlying acute urinary tract infection TIA Diabetes mellitus Hyperlipidemia COPD History of benign prostate hyperplasia Plan: Ordered TSH, vitamin B12, folate level Patient has urine culture that is pending. Currently the patient is on ceftriaxone all defer the management to the primary team Continue neuro checks PT, OT are consulted Patient is on his home medication of Lipitor 20 g daily at bedtime and Plavix 75 mg daily at bedtime. We'll defer the rest of the medical management to the primary team Commend the patient to follow-up with a neurologist as an outpatient within 1-2 weeks. The plan is discussed with the patient and his daughter who is at bedside. Thank you for the consultation Beto Mahmood M.D. Neuro-hospitalist Time with Patient: Greater than 30
[2021-11-22] MEDS: SODIUM CHLORIDE 0.9% 1,000 ML IV SCH ×2 (13:00→23:42)
[2021-11-22] MEDS: ACETAMINOPHEN TAB 325 MG TAB PO PRN (14:40)
--- NOTE | 2021-11-22 15:22 | XR ---
EXAMINATION TYPE: XR Hip Complete LT DATE OF EXAM: 11/22/2021 CLINICAL HISTORY: Left hip pain. Fall injury today. TECHNIQUE: AP and frogleg views of the left hip are obtained. COMPARISON: CT left hip October 30, 2021. FINDINGS: Advanced degenerative change of the left hip with marked joint space loss, there is joint s pace sclerosis and subchondral cystic change redemonstrated. Nonspecific sclerotic focus in the femor al neck is redemonstrated. No acute displaced fracture. Left pelvic phleboliths and vascular calcific ation redemonstrated. IMPRESSION: As above. No significant change from recent CT.
[2021-11-22 17:09] LABS: Glucose,Whole Blood 118 mg/dL (75-99)
--- NOTE | 2021-11-22 17:32 | P.PN ---
Subjective Progress Note Date: 11/22/21 Principal diagnosis: Chief complaint weakness and falls Patient seen and examined at bedside. Patient's son and daughter are at bedside. Patient is hard of hearing. ROS supplemented by visitors. No chest pain, fever, shortness of breath. Still has difficulty walking. Endorses left hip pain. Available labs reviewed. Neurology consultation taken. Objective - Vital Signs Vital signs: Vital Signs Temp 99.1 F 11/22/21 08:00 Pulse 78 11/22/21 08:00 Resp 14 11/22/21 08:00 BP 151/69 11/22/21 08:00 Pulse Ox 98 11/22/21 08:00 Intake & Output 11/21/21 11/22/21 11/22/21 18:59 06:59 18:59 Weight 68.946 kg 68.946 kg Other: # Voids 2 - Exam General: non toxic, no distress, appears at stated age, cachectic Derm: no unusual rashes/lesions no unusual ecchymoses, warm, dry Head: atraumatic, normocephalic, symmetric Eyes: EOMI, no lid lag, anicteric sclera, pupils equal round reactive to light ENT: Nose and ears atraumatic, no thrush, no pharyngeal erythema Neck: No thyromegaly, no cervical lymphadenopathy, trachea midline, supple Mouth: no lip lesion, mucus membranes moist Cardiovascular: S1S2 reg, no murmur, positive posterior tibial pulse bilateral, no edema, capillary refill less than 2 seconds Lungs: CTA bilateral, no rhonchi, no rales , no accessory muscle use Abdominal: soft, nontender to palpation, no guarding, no appreciable organomegaly, normal bowel sounds Ext: no gross muscle atrophy, muscle strength 3+ out of 5 in bilateral lower extremities, strength 5 out of 5 in bilateral upper extremities, no contra ctures, Neuro: CN II-XI grossly intact, light touch intact all 4 extremities, finger to nose within normal limits, Psych: Alert, oriented, appropriate affect - Labs CBC & Chem 7: 11/21/21 15:40 11/21/21 15:40 Labs: Abnormal Lab Results - Last 24 Hours (Table) 11/22/21 11/22/21 Range/Units 08:13 17:08 POC Glucose (mg/dL) 150 H 118 H (75-99) mg/dL Microbiology - Last 24 Hours (Table) 11/21/21 15:40 Group A Strep Throat Culture - Preliminary Throat 11/21/21 16:38 Urine Culture - Preliminary Urine,Voided Assessment and Plan Assessment: Urinary tract infection - Continue Rocephin - Urine culture pending Bilateral lower extremity weakness -Secondary to debility and degenerative arthritis -X-rays of left hip -Orthopedic surgery consult for left hip pain Recurrent falls - Secondary to above -PTOT consulted -Fall precautions - IV fluids and encourage by mouth intake History of TIA - Continue Plavix History of type 2 diabetes - Low-dose SSI coverage with monitoring of blood sugars BPH Continue Flomax Hyperlipidemia Continue atorvastatin DVT prophylaxis with heparin subcutaneous Time with Patient: Greater than 30
[2021-11-22 20:34] LABS: Glucose,Whole Blood 144 mg/dL (75-99)
[2021-11-22] MEDS ORDERED: CLOPIDOGREL 75 MG TAB PO SCH (21:00)
[2021-11-22] MEDS ORDERED: ATORVASTATIN 20 MG TAB PO SCH (21:00)
[2021-11-23 07:31] LABS: Glucose,Whole Blood 104 mg/dL (75-99)
[2021-11-23] MEDS: INSULIN ASPART (NovoLOG) 100 UNIT/ML VIAL SQ SCH ×2 (08:13→12:56)
[2021-11-23] MEDS: TAMSULOSIN 0.4 MG CAP.ER.24H PO SCH (08:16)
[2021-11-23] MEDS: LORATADINE 10 MG TAB PO SCH (08:16)
[2021-11-23] MEDS: HEPARIN SODIUM,PORCINE/PF 5,000 UNIT/0.5 ML SYRINGE SQ SCH (08:16)
[2021-11-23] MEDS: CHOLECALCIFEROL 25 MCG (1000 IU) TABLET PO SCH (08:16)
[2021-11-23] MEDS: FLUoxetine HCL 20 MG CAP PO SCH (08:16)
[2021-11-23 08:42] LABS: Basophils # (A) 0.1 k/uL (0-0.2); Basophils % (A) 1 %; Eosinophils % (A) 0 %; HCT 40.6 % (39.0-53.0); HGB 12.9 gm/dL (13.0-17.5); Lymphocytes # (A) 0.9 k/uL (1.0-4.8); Lymphocytes % (A) 11 %; MCH 30.5 pg (25.0-35.0); MCHC 31.8 g/dL (31.0-37.0); MCV 95.9 fL (80.0-100.0); Mean Platelet Volume 6.9; Monocytes # (A) 0.6 k/uL (0-1.0); Monocytes % (A) 8 %; Neutrophils % (A) 79 %; Platelet Count 227 k/uL (150-450); RBC 4.24 m/uL (4.30-5.90); RDW 14.1 % (11.5-15.5); WBC 7.6 k/uL (3.8-10.6)
[2021-11-23 09:05] LABS: African American GFR (CKD) >90 (>60 ml/min/1.73 sqM); Anion Gap 8 mmol/L; Blood Urea Nitrogen 14 mg/dL (9-20); Calcium 8.9 mg/dL (8.4-10.2); Carbon Dioxide 28 mmol/L (22-30); Chloride 100 mmol/L (98-107); Glucose 122 mg/dL (74-99); Non-African American GFR(CKD) 79 (>60 ml/min/1.73 sqM); Potassium 3.9 mmol/L (3.5-5.1); Sodium 136 mmol/L (137-145)
[2021-11-23] MEDS: ACETAMINOPHEN TAB 325 MG TAB PO PRN ×2 (09:05→15:57)
[2021-11-23 10:08] VITALS: BP 172/84; PULSE 78; RESP 14; TEMP 101.1
--- NOTE | 2021-11-23 10:25 | P.CNOR ---
History of Present Illness - HPI Consult date: 11/23/21 History of present illness: This is an 86-year-old male who is admitted for weakness and UTI. Orthopedics is consulted due to left hip pain. Patient is seen and evaluated at bedside today. Patient is a poor historian and there is no family present in the room today. According to the notes the patient had a fall at home. Patient does admit to left hip pain today, but is unable to give any other details. Review of Systems ROS unobtainable: due to mental status Past Medical History Past Medical History: Cancer, CVA/TIA, Diabetes Mellitus, Hyperlipidemia, Hypertension, Osteoarthritis (OA) Additional Past Medical History / Comment(s): prostate CA, History of Any Multi-Drug Resistant Organisms: None Reported Additional Past Surgical History / Comment(s): lamenectomy Past Anesthesia/Blood Transfusion Reactions: No Reported Reaction Past Psychological History: Depression Smoking Status: Former smoker Past Alcohol Use History: None Reported Past Drug Use History: None Reported - Past Family History Father Family Medical History: Myocardial Infarction ([place]) Mother Family Medical History: Dementia Medications and Allergies Home Medications Medication Instructions Recorded Confirmed Type Albuterol Inhaler [Ventolin Hfa 2 puff INHALATION RT-QID PRN 04/25/21 11/21/21 History Inhaler] Atorvastatin [Lipitor] 20 mg PO HS 04/25/21 11/21/21 History Cholecalciferol [Vitamin D3 (25 25 mcg PO BID 04/25/21 11/21/21 History Mcg = 1000 Iu)] FLUoxetine HCL [PROzac] 20 mg PO DAILY 04/25/21 11/21/21 History Loratadine 10 mg PO DAILY 04/25/21 11/21/21 History metFORMIN HCL [Glucophage] 500 mg PO BID 04/25/21 11/21/21 History Acetaminophen Tab [Tylenol Tab] 1,000 mg PO BID 11/21/21 11/21/21 History Acetaminophen Tab [Tylenol Tab] 1,000 mg PO Q6HR PRN 11/21/21 11/21/21 History Clopidogrel [Plavix] 75 mg PO HS 11/21/21 11/21/21 History Cyanocobalamin [Vitamin B-12] 500 mcg PO HS 11/21/21 11/21/21 History Loperamide HCl [Imodium A-D] 2 mg PO QID PRN 11/21/21 11/21/21 History Tamsulosin [Flomax] 0.4 mg PO BID 11/21/21 11/21/21 History Allergies Allergy/AdvReac Type Severity Reaction Status Date / Time No Known Allergies Allergy Verified 11/21/21 16:15 Physical Examination On exam patient is resting comfortably in bed in no acute distress. Patient is alert but confused. There is pain and limitation in the left hip with passive range of motion. Skin is intact. Calf is soft and nontender to palpation. Sensation intact. Neurovascular status and circulatory status are intact. Results X-rays of the left hip reveal severe osteoarthritic changes. - Labs Labs: Abnormal Lab Results - Last 24 Hours (Table) 11/21/21 11/22/21 11/22/21 Range/Units 15:40 17:08 20:32 RBC (4.30-5.90) m/uL Hgb (13.0-17.5) gm/dL Lymphocytes # (1.0-4.8) k/uL Sodium (137-145) mmol/L Glucose (74-99) mg/dL POC Glucose (mg/dL) 118 H 144 H (75-99) mg/dL Vitamin B12 1032.0 H (200.0-944.0) pg/mL 11/23/21 11/23/21 11/23/21 Range/Units 07:29 08:09 08:09 RBC 4.24 L (4.30-5.90) m/uL Hgb 12.9 L (13.0-17.5) gm/dL Lymphocytes # 0.9 L (1.0-4.8) k/uL Sodium 136 L (137-145) mmol/L Glucose 122 H (74-99) mg/dL POC Glucose (mg/dL) 104 H (75-99) mg/dL Vitamin B12 (200.0-944.0) pg/mL Microbiology - Last 24 Hours (Table) 11/21/21 16:38 Urine Culture - Final Urine,Voided H & H 11/21/21 11/23/21 Range/Units 15:40 08:09 Hgb 14.1 12.9 L (13.0-17.5) gm/dL Hct 43.2 40.6 (39.0-53.0) % Coagulation 11/21/21 Range/Units 15:40 INR 0.9 (<1.2) Result Diagrams: 11/23/21 08:09 11/23/21 08:09 Assessment and Plan (1) Left hip pain Current Visit: Yes Status: Acute Code(s): M25.552 - PAIN IN LEFT HIP SNOMED Code(s): 41564923 (2) Osteoarthritis of left hip Current Visit: Yes Status: Acute Code(s): M16.12 - UNILATERAL PRIMARY OSTEOARTHRITIS, LEFT HIP SNOMED Code(s): 195709816073298 Plan: 1. X-rays of the left hip are reviewed revealing severe osteoarthritic changes. 2. There is no surgical intervention planned. Patient is awaiting rehab placement. Patient may weight-bear as tolerated. Recommend follow-up as an outpatient.
[2021-11-23 12:16] LABS: Glucose,Whole Blood 138 mg/dL (75-99)
--- NOTE | 2021-11-23 13:30 | P.DS ---
Providers Date of admission: 11/21/21 18:56 Attending physician: Basil Rascon MD Consults: 11/21/21 18:20 Consult Physician Routine Consulting Provider: Beto Mahmood Consult Reason/Comments: Rule out TIA, rule out guillain barre- sore throat, increased weakness Do you want consulting provider notified?: Yes 11/22/21 14:35 Consult Physician Routine Consulting Provider: Stuart Anna Consult Reason/Comments: Left hip pain Do you want consulting provider notified?: Yes Primary care physician: Ciro Deshpande MD Hospital Course: 86-year-old male with past medical history of type 2 diabetes, hyperlipidemia, COPD, BPH and TIA who was admitted for further evaluation and treatment of recurrent falls and generalized weakness. Patient was also found to be complaining of left hip pain. Urinalysis suggested UTI and patient was started on IV ceftriaxone. Chest x-ray was consistent with chronic COPD changes. Patient does have symptoms of dysuria and also continuing. No fever or chills. Troponin was unremarkable. Rapid strep negative. Rapid coronavirus test negative. X-rays of the left hip was obtained which showed severe degenerative changes and orthopedic surgery consultation was taken. Urine cultures did not grow any significant pathogen. Patient was evaluated by physical therapy and occupational therapy and will be transferred to extended care facility/correction facility when bed is available. Antibiotics will be changed to oral Keflex. This was discussed with sr. merchandise planner. He is clinically and hemodynamically stable for transfer. Constitutional: No acute distress, on room air, appears weak HEENT: Pupils equally reactive to light, atraumatic, normocephalic. Lungs: Clear to auscultation bilaterally, no wheezing, no crackles Cardiovascular: RRR, S1-S2 normal, no murmur, no peripheral edema Abdominal: Soft, nontender, no guarding, rebound or rigidity Extremities: No cyanosis or clubbing Neuro: Moving all 4 extremities, alert Assessment: Discharge diagnosis Urinary tract infection Continue Keflex for 3 days Recurrent falls and debility Extended care facility or rehab facility Bilateral lower extremity weakness Continue physical therapy History of TIA History of type 2 diabetes BPH Hyperlipidemia Patient Condition at Discharge: Fair Plan - Discharge Summary Discharge Rx Participant: Yes New Discharge Prescriptions: New Cephalexin [Keflex] 500 mg PO Q8HR 3 Days #9 cap Continue FLUoxetine HCL [PROzac] 20 mg PO DAILY Atorvastatin [Lipitor] 20 mg PO HS metFORMIN HCL [Glucophage] 500 mg PO BID Cyanocobalamin [Vitamin B-12] 500 mcg PO HS Tamsulosin [Flomax] 0.4 mg PO BID Clopidogrel [Plavix] 75 mg PO HS Albuterol Inhaler [Ventolin Hfa Inhaler] 2 puff INHALATION RT-QID PRN PRN Reason: Shortness Of Breath Loratadine 10 mg PO DAILY Cholecalciferol [Vitamin D3 (25 Mcg = 1000 Iu)] 25 mcg PO BID Acetaminophen Tab [Tylenol] 1,000 mg PO Q6HR PRN PRN Reason: Pain Or Fever > 100.5 Discontinued Loperamide HCl [Imodium A-D] 2 mg PO QID PRN PRN Reason: Diarrhea No Action Acetaminophen Tab [Tylenol Tab] 1,000 mg PO BID Discharge Medication List Albuterol Inhaler [Ventolin Hfa Inhaler] 2 puff INHALATION RT-QID PRN 04/25/21 [History] Atorvastatin [Lipitor] 20 mg PO HS 04/25/21 [History] Cholecalciferol [Vitamin D3 (25 Mcg = 1000 Iu)] 25 mcg PO BID 04/25/21 [History] FLUoxetine HCL [PROzac] 20 mg PO DAILY 04/25/21 [History] Loratadine 10 mg PO DAILY 04/25/21 [History] metFORMIN HCL [Glucophage] 500 mg PO BID 04/25/21 [History] Acetaminophen Tab [Tylenol Tab] 1,000 mg PO BID 11/21/21 [History] Acetaminophen Tab [Tylenol] 1,000 mg PO Q6HR PRN 11/21/21 [History] Clopidogrel [Plavix] 75 mg PO HS 11/21/21 [History] Cyanocobalamin [Vitamin B-12] 500 mcg PO HS 11/21/21 [History] Tamsulosin [Flomax] 0.4 mg PO BID 11/21/21 [History] Cephalexin [Keflex] 500 mg PO Q8HR 3 Days #9 cap 11/23/21 [Rx] Follow up Appointment(s)/Referral(s): [facility], [NON-STAFF] - As Needed Stuart Anna DO [Doctor of Osteopathic Medicine] - As Needed Patient Instructions/Handouts: Urinary Tract Infection in Men (GEN)
--- NOTE | 2021-11-23 14:37 | P.PN ---
Subjective Progress Note Date: 11/23/21 The patient is seen at beside and is accompanied by his daughter and son. He feels he is doing better. He has pelvic pain and continues to have weakness over both legs. Per family members they stated that the patient has remote history of laminectomy in the past and receive epidural injections to his lower back and was told he has degenerative changes not only in the back but also to the headpiece as well as the knees bilaterally. Per family seems that he follows up with orthopedic team. Patient had a hip x-ray on the left and it's reported as advanced degenerative changes of the left hip with marked joint space loss, there is joint space sclerosis and sup chondral cystic changes redemonstrated. No fracture. Objective - Vital Signs Vital signs: Vital Signs Temp 101.1 F H 11/23/21 08:00 Pulse 78 11/23/21 08:00 Resp 14 11/23/21 08:00 BP 172/84 11/23/21 08:00 Pulse Ox 94 L 11/23/21 08:45 Intake & Output 11/22/21 11/23/21 11/23/21 18:59 06:59 18:59 Other: # Voids 3 2 - Exam GENERAL: The patient is lying in bed and is mild acute distress. NEUROLOGICAL: Higher mental function: The patient is awake, alert, oriented to self, place and time. Patient is following commands. No aphasia and no neglect. Cranial nerves: The pupils are round, equal and reactive to light. Visual donahue are full to confrontation throughout. Extraocular movement is intact no nystagmus is noted. Facial sensation is normal to touch throughout. The facial strength is normal throughout. Hearing is moderately decreased bilaterally to hand rub. Tongue is midline and moved [id number] without any difficulty. No dysarthria is noted. Shoulder shrug is normal bilaterally. Motor: Gait is deferred because of his pain.. The strength is limited over bilateral lower extremity because of pain but is able to bend his knees otherwise he is in pain. Ankles are 5/5 bilaterally. Otherwise 5 over 5 throughout upper. Normal tone and bulk. Cerebellum: Normal finger to nose bilaterally. Sensation: Sensation is normal to touch throughout. Reflexes (right/left): 2+ throughout except could not assess lowers because of pain.. - Labs CBC & Chem 7: 11/23/21 08:09 11/23/21 08:09 Labs: Abnormal Lab Results - Last 24 Hours (Table) 11/21/21 11/22/21 11/22/21 Range/Units 15:40 17:08 20:32 RBC (4.30-5.90) m/uL Hgb (13.0-17.5) gm/dL Lymphocytes # (1.0-4.8) k/uL Sodium (137-145) mmol/L Glucose (74-99) mg/dL POC Glucose (mg/dL) 118 H 144 H (75-99) mg/dL Vitamin B12 1032.0 H (200.0-944.0) pg/mL 11/23/21 11/23/21 11/23/21 Range/Units 07:29 08:09 08:09 RBC 4.24 L (4.30-5.90) m/uL Hgb 12.9 L (13.0-17.5) gm/dL Lymphocytes # 0.9 L (1.0-4.8) k/uL Sodium 136 L (137-145) mmol/L Glucose 122 H (74-99) mg/dL POC Glucose (mg/dL) 104 H (75-99) mg/dL Vitamin B12 (200.0-944.0) pg/mL 11/23/21 Range/Units 12:14 RBC (4.30-5.90) m/uL Hgb (13.0-17.5) gm/dL Lymphocytes # (1.0-4.8) k/uL Sodium (137-145) mmol/L Glucose (74-99) mg/dL POC Glucose (mg/dL) 138 H (75-99) mg/dL Vitamin B12 (200.0-944.0) pg/mL Microbiology - Last 24 Hours (Table) 11/21/21 16:38 Urine Culture - Final Urine,Voided Assessment and Plan Assessment: advanced degenerative changes of the left hip Lower extremity examination is limited because hip pain. Chronic low back pain and get injection History of remote laminectomy to his lower back Arthritis of bilateral knees. Generalized weakness, recent fall and lack of appetite seems possibly due to underlying acute urinary tract infection. 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 Possibly underlying acute urinary tract infection TIA Diabetes mellitus Hyperlipidemia COPD History of benign prostate hyperplasia Plan: TSH: 1.450, vitamin B12: 1032, folate level:14.70 are all normal Patient has urine culture: -ve for UTI. Orthopedic team is on board. Recommend EMG with NCS of bilateral lower extremities as outpatient. Per daughter patient has arthritis of his lower back, pelvis and bilateral knees. Will defer further imaging to the Orthopedic team. Continue neuro checks PT, OT are consulted Patient is on his home medication of Lipitor 20 g daily at bedtime and Plavix 75 mg daily at bedtime. We'll defer the rest of the medical management to the primary team Commend the patient to follow-up with a neurologist as an outpatient within 1-2 weeks. The plan is discussed with the patient and his daughter and his son who are at bedside. There is no further neurological work-up. Please notify neurology team if any further concerns. Beto Mahmood M.D. Neuro-hospitalist Time with Patient: Less than 30
== END 2021-11-23 16:06 | DRG 690 ==
LOC: EC 11:46 → 5NMEDONC 18:56 → 4SSUR 20:27
PROVIDERS: ADMIT Internal Medicine; ATTEND Internal Medicine
PROC: 05HC33Z Insertion of Infusion Device into Left Basilic Vein, Percutaneous Approach (ICD-10-PCS; principal; 2021-11-23 09:55)
DX: N39.0 Urinary tract infection, site not specified (principal); J98.11 Atelectasis; G61.0 Guillain-Barre syndrome; G89.29 Other chronic pain; M54.50 Low back pain, unspecified; J03.90 Acute tonsillitis, unspecified; M17.0 Bilateral primary osteoarthritis of knee; M16.12 Unilateral primary osteoarthritis, left hip; E11.9 Type 2 diabetes mellitus without complications; E78.5 Hyperlipidemia, unspecified; F32.A Depression, unspecified; H91.93 Unspecified hearing loss, bilateral; H91.90 Unspecified hearing loss, unspecified ear; I10 Essential (primary) hypertension; R27.0 Ataxia, unspecified; I44.7 Left bundle-branch block, unspecified; J44.9 Chronic obstructive pulmonary disease, unspecified; N40.0 Benign prostatic hyperplasia without lower urinary tract symptoms; R29.6 Repeated falls; Z91.81 History of falling; Z20.822 Contact with and (suspected) exposure to COVID-19; Y92.009 Unspecified place in unspecified non-institutional (private) residence as the place of occurrence of the external cause; Z79.02 Long term (current) use of antithrombotics/antiplatelets; Z79.84 Long term (current) use of oral hypoglycemic drugs; Z79.899 Other long term (current) drug therapy; Z82.49 Family history of ischemic heart disease and other diseases of the circulatory system; Z85.46 Personal history of malignant neoplasm of prostate; Z86.73 Personal history of transient ischemic attack (TIA), and cerebral infarction without residual deficits; Z87.891 Personal history of nicotine dependence; Z98.890 Other specified postprocedural states; Z82.0 Family history of epilepsy and other diseases of the nervous system
CPT/HCPCS: 36410; 36415; 70450; 71046; 72125; 73502; 76937; 80048; 80053; 81001; 82607; 82746; 83036; 83605; 83735; 84443; 84484; 85025; 85610; 85730; 87081; 87086; 87430; 87635; 94760; 96374; 99285